=== PATIENT | female | born 1960 | race Caucasian/White ===

== ENCOUNTER → 2016-10-08 | Outpatient (CLI) | payer OTHER ==
--- NOTE | 2016-10-08 10:59 | XR ---
EXAMINATION TYPE: XR ankle complete LT DATE OF EXAM ORDERED: 10/08/2016 10:52 AM HISTORY: M25.572 left ankle pain. COMPARISON: None. FINDINGS: No fracture, dislocation or ankle joint effusion is seen. There are bubbles plantar and Ac hilles calcaneal spurs. There is some calcification of the interosseous ligament. IMPRESSION: 1. NO ACUTE OSSEOUS LESION. 2. DEGENERATIVE CHANGE.
== END | disposition home or self-care (01) ==
LOC: RADXRMAIN 10:29
PROVIDERS: ATTEND Psychiatry & Neurology Pain Medicine
DX: R93.7 Abnormal findings on diagnostic imaging of other parts of musculoskeletal system (principal); M25.572 Pain in left ankle and joints of left foot

== ENCOUNTER → 2018-11-16 | Outpatient (CLI) | payer OTHER ==
[2018-11-16 12:00] LABS: Anisocytosis Slight; HCT 40.6 % (34.0-46.0); HGB 12.3 gm/dL (11.4-16.0); Hypochromasia Marked; MCH 26.1 pg (25.0-35.0); MCHC 30.3 g/dL (31.0-37.0); MCV 85.9 fL (80.0-100.0); Mean Platelet Volume 7.4; Platelet Count 320 k/uL (150-450); RBC 4.73 m/uL (3.80-5.40); RDW 17.2 % (11.5-15.5); WBC 5.7 k/uL (3.8-10.6)
[2018-11-16 12:02] LABS: Potassium 4.4 mmol/L (3.5-5.1)
== END ==
LOC: LABPAT 10:42
PROVIDERS: ATTEND Internal Medicine Clinical Cardiac Electrophysiology
DX: Z01.812 Encounter for preprocedural laboratory examination (principal); I47.1 Supraventricular tachycardia; I42.0 Dilated cardiomyopathy
CPT/HCPCS: 36415; 80051; 82565; 82947; 84520; 85027

== ENCOUNTER → 2018-11-22 | Day surgery (SDC) | payer OTHER ==
[2018-11-16 12:57] VITALS: BMI 50.1
[~2018-11-22] MED LIST: DEXTROSE 5% IN WATER 250 ML with AMIODARONE 300 MG IV ONE; PROPOFOL 10 MG/ML 20 ML VIAL IV ONE; RIVAROXABAN 20 MG TAB PO STA; SODIUM CHLORIDE 0.9% 1,000 ML IV SCH; SODIUM CHLORIDE 0.9% 500 ML 500 ML IV ONE
[2018-11-22 12:38] VITALS: TEMP 97.8
--- NOTE | 2018-11-22 13:07 | P.PCN ---
Preoperative Diagnosis: Diagnosis Atrial tachycardia with RVR Past history of tachycardia mediated cardiomyopathy Procedure Successful electrical cardioversion with 360 J shock to sinus rhythm Immediate recurrence of atrial tachycardia with RVR Plan Start IV amiodarone 300 mg over 2 hrs. And repeat electrical cardioversion today Schedule for pulmonary vein isolation and atrial tachycardia ablation Hybrid procedure with cryoablation and mapping and ablation with radiofrequency ablation for any residual atrial tachycardia as well as reinterrogation of the atrial flutter RF line made in 2013
[2018-11-22 15:46] VITALS: RESP 18
[2018-11-22 16:41] VITALS: BP 141/72; PULSE 78
== END | disposition home or self-care (01) ==
LOC: CATHEP 12:10
PROVIDERS: ATTEND Internal Medicine Clinical Cardiac Electrophysiology
DX: I47.1 Supraventricular tachycardia (principal); I42.0 Dilated cardiomyopathy; I48.92 Unspecified atrial flutter; I11.0 Hypertensive heart disease with heart failure; I50.22 Chronic systolic (congestive) heart failure; I49.5 Sick sinus syndrome; Q23.1 Congenital insufficiency of aortic valve; I35.1 Nonrheumatic aortic (valve) insufficiency; F17.200 Nicotine dependence, unspecified, uncomplicated; G47.33 Obstructive sleep apnea (adult) (pediatric); Z99.89 Dependence on other enabling machines and devices; E11.9 Type 2 diabetes mellitus without complications; Z79.01 Long term (current) use of anticoagulants; Z79.1 Long term (current) use of non-steroidal anti-inflammatories (NSAID); Z79.899 Other long term (current) drug therapy
CPT/HCPCS: 92960; J0282; J2704

== ENCOUNTER → 2018-12-07 | Outpatient (CLI) | payer OTHER ==
[2018-12-07 11:32] LABS: Anisocytosis Slight; HCT 41.9 % (34.0-46.0); HGB 12.8 gm/dL (11.4-16.0); Hypochromasia Marked; MCH 25.9 pg (25.0-35.0); MCHC 30.5 g/dL (31.0-37.0); Mean Platelet Volume 7.5; Platelet Count 325 k/uL (150-450); RBC 4.93 m/uL (3.80-5.40); RDW 16.4 % (11.5-15.5); WBC 6.3 k/uL (3.8-10.6)
== END | disposition home or self-care (01) ==
LOC: LABPAT 10:55
PROVIDERS: ATTEND Internal Medicine Clinical Cardiac Electrophysiology
DX: Z01.812 Encounter for preprocedural laboratory examination (principal); I48.92 Unspecified atrial flutter; I47.1 Supraventricular tachycardia
CPT/HCPCS: 36415; 80051; 82565; 84520; 85027

== ENCOUNTER 2019-01-03 09:47 | Day surgery (SDC) | payer OTHER ==
[2018-12-28 17:37] VITALS: BMI 39.5
[2019-01-03] MEDS ORDERED: MIDAZOLAM 2 MG/2 ML VIAL ONE (13:53)
[2019-01-03] MEDS ORDERED: HEPARIN SODIUM,PORCINE 10,000 UNIT/ML 1 ML VIAL ONE (13:53)
[2019-01-03] MEDS ORDERED: PROPOFOL 10 MG/ML 20 ML VIAL IV ONE (13:53)
[2019-01-03] MEDS ORDERED: LIDOCAINE 1% INJ 10MG/ML (20 ML MDV) ONE (13:53)
[2019-01-03] MEDS ORDERED: PHENYLEPHRINE-0.9% NACL SYG 1 MG/10 ML SYRINGE ONE (13:53)
[2019-01-03] MEDS ORDERED: PROTAMINE SULFATE 10 MG/ML 5 ML VIAL IV ONE ×3 (13:53→17:02)
[2019-01-03] MEDS ORDERED: IV FLUID CONTINUATION 800 ML IV ONE (13:53)
[2019-01-03] MEDS ORDERED: SUCCINYLCHOLINE CHLORIDE 100 MG/5 ML SYR IV ONE (13:53)
[2019-01-03] MEDS ORDERED: FUROSEMIDE 10 MG/ML 2 ML VIAL ONE (13:53)
[2019-01-03] MEDS ORDERED: fentaNYL (PF) 50 MCG/ML 2 ML AMP ONE (13:53)
[2019-01-03] MEDS ORDERED: ISOPROTERENOL 250 MCG/1.25 ML SYR IV ONE (13:53)
[2019-01-03] MEDS ORDERED: HEPARIN SOD,PORK IN 0.45% NACL 25,000 UNIT in 0.45% NACL 1 250ML.BAG IV ONE (14:37)
[2019-01-03] MEDS ORDERED: LIDOCAINE 1% INJ 10MG/ML (20 ML MDV) SQ ONE (14:40)
[2019-01-03] MEDS ORDERED: LACTATED RINGERS 1,000 ML IV ONE (16:40)
[2019-01-03] MEDS ORDERED: HYDROcodone/APAP 5-325MG 1 EACH TAB PO PRN (17:03)
[2019-01-03] MEDS ORDERED: ACETAMINOPHEN TAB 325 MG TAB PO PRN (17:03)
[2019-01-03] MEDS ORDERED: ACETAMINOPHEN IV (For NPO) 1,000 MG in EMPTY BAG 1 BAG IVPB ONE (17:03)
[2019-01-03] MEDS ORDERED: IOPAMIDOL-370 100ML BTL INJ ONE (17:07)
--- NOTE | 2019-01-03 17:15 | P.PCN ---
Preoperative Diagnosis: Diagnosis Atrial fibrillation, symptomatic, refractory to therapy/rapid atrial tachycardia, symptomatic Result Successful pulmonary vein isolation of all veins using cryo-ablation Complete entrance block in all 4 veins confirmed No evidence for phrenic nerve injury Easily inducible rapid atrial tachycardia that terminated with cryoablation of the left-sided pulmonary veins specifically left superior pulmonary vein Esophageal deflection YES Procedure details Patient was brought to the EP lab in a fasting state. Written informed consent was obtained prior to the procedure. Procedure performed under general anesthesia After initial muscle relaxant use, muscle relaxants were not given thereafter in order to assess phrenic nerve during procedure. Patient prepped and draped as per protocol Full cryo-set up with standard preparation of the cryoablation tools done. Femoral Venous access obtained on the right and left groins Venous and arterial Sheaths placed. Diagnostic catheters for the high right atrium, phrenic nerve stimulation and pacing, His bundle, RV and coronary sinus placed Intracardiac echo catheter placed. Long sheath placed in the right atrium Left and right transseptal catheterization performed under intracardiac echo guidance. Intravenous heparin with aCT above 300 Later, catheter positioning and balloon positioning in the left atrium, under intracardiac echo guidance Diagnostic EP study with Drug infusion Coronary sinus pacing and recording Baseline measurements Sinus cycle length 884 ms LA interval 180 ms, QRS 86 ms QT 370 beats 3 ms AH 82 HV 30 Atrial pacing performed from the high right atrium and the coronary sinus Sinus node recovery times at 504 100 ms were 742 and 708 ms respectively. AV node Wenckebach block from the high right atrium was 290 ms Atrial ERP from the high right atrium 400/less than 250 ms AV node Wenckebach block from the Jhony sinus less than 290 ms High-dose Isuprel infused no recurrence of atrial tachycardia Transseptal catheterization performed RA pressure 17/10/14 LA pressure 35/13/19 Transseptal catheterization performed with standard sheath. The cryoablation sheath was then placed with an over the wire exchange without any acute complications. All 4 pulmonary veins were isolated in the following sequence: Left superior followed by left inferior followed by right superior followed by right inferior The cryo-ablation balloon was placed at the os of each vein 1.5 mL of IV dye was injected to confirm an occluded vein Goal during cryoablation was to achieve complete occlusion of the pulmonary vein, achieve -30 degrees C at 30 seconds and achieve -40 degrees C at 60 seconds and a time to effect of less than 60-90 seconds, . If not the balloon was repositioned to obtain this result After completion of Cryoblation with durations from 180-240 seconds, entrance block was confirmed with the Attain circular catheter in a roving fashion around the antrum of the pulmonary veins Phrenic nerve pacing was performed from the SVC, right innominate vein area and diaphragm voltage was monitored. Diaphragmatic contractions were also monitored manually for strength of contraction. Parameter goals for each cryo freeze Complete occlusion of the appropriate vein -30 degrees C by 30 seconds -40 degrees C by 60 seconds Minimum between minus 40-55 degrees C Thaw time greater than 10 seconds Balloon visualized by intracardiac echo The esophagus was intubated. Esophageal Temperature monitoring with a CIRCA catheter formed. Esophageal deflection for hypothermia of the esophagus below 30 degrees C Left superior pulmonary vein Complete isolation, entrance block Termination of rapid atrial tachycardia Left inferior pulmonary vein Complete isolation, entrance block Right superior pulmonary vein, during phrenic nerve pacing Complete isolation, entrance block Right inferior pulmonary vein, during phrenic nerve pacing Complete isolation, entrance block At the end of the procedure the Achieve catheter was once again used to check for entrance block Phrenic nerve stimulation was performed to confirm diaphragmatic stimulation the end of the procedure Cine fluoroscopy was performed at the very end of the procedure to confirm movement of both diaphragms with inspiration and expiration At the end of the procedure the patient was extubated Heparin was reversed Venous sheaths were removed and hemostasis assured Procedures performed (PVI - CRYO Ablation) Diagnostic EP study with attempted arrhythmia induction CS pacing and recording Left and right transseptal catheterization Catheter the mapping of the tachycardia (NOT 3D mapping) Intracardiac echocardiography Pulmonary vein isolation with transseptal and comprehensive EPS, [id number] and termination of the rapid atrial tachycardia during ablation of left superior pulmonary vein Drug Infusion +[id number]
--- NOTE | 2019-01-03 17:17 | P.PRLE ---
RE: Radha Mark Dear Dr. Quique Garcia underwent successful cryoablation of all 4 pulmonary veins. However she had a very easily inducible atrial tachycardia with minimal pacing stimulation within the distal coronary sinus. This tachycardia terminated while the ablated the left superior pulmonary vein At this time I would reduce the dose of amiodarone to 100 mg by mouth daily raf torres continuing all other medications including Rivaroxaban Thank you for entrusting me with the care of the patient Warm regards Sincerely Salvador Nielsen
[2019-01-03] MEDS ORDERED: RIVAROXABAN 20 MG TAB PO SCH (19:15)
[2019-01-03 20:26] LABS: Glucose,Whole Blood 114 mg/dL (75-99)
[2019-01-03] MEDS: SODIUM CHLORIDE 0.9% 1,000 ML IV SCH ×2 (20:48→21:41)
[2019-01-03] MEDS: busPIRone HCl 5 MG TAB PO SCH (20:48)
[2019-01-03] MEDS: DORZOLAMIDE HCL 2% DROPS 10 ML BTL BOTH EYES SCH (20:48)
[2019-01-03] MEDS ORDERED: LATANOPROST 0.005% OPHTH DROPS 2.5 ML BTL BOTH EYES SCH (21:00)
[2019-01-04 06:57] LABS: Glucose,Whole Blood 115 mg/dL (75-99)
[2019-01-04] MEDS ORDERED: CARVEDILOL 3.125 MG TAB PO SCH (07:30)
--- NOTE | 2019-01-04 07:37 | P.DS ---
Providers Attending physician: Salvador Nielsen Primary care physician: Quique Rain [facility] Course: Patient is doing well. Mild sore throat no chest discomfort no dizziness lightheadedness. She's been ablating the hallways Heart sounds are normal no murmurs or gallops or rub Breath sounds are clear Abdomen soft nontender Extremities are warm no edema No swelling in the groins no hematoma Impression Rapid atrial tachycardia/atrial fibrillation originating in the left-sided veins, likely left superior pulmonary vein Successful cryoablation of all 4 pulmonary veins Termination of rapid atrial tachycardia Morbid obesity Hypertension Plan Reduce amiodarone to 100 mg by mouth daily Continue all other antihypertensive medications, Rivaroxaban Follow-up in the office within 2 weeks Plan - Discharge Summary Discharge Rx Participant: Yes New Discharge Prescriptions: New Amiodarone [Cordarone] 100 mg PO DAILY #90 tab Discontinued amLODIPine [Norvasc] 10 mg PO DAILY No Action busPIRone HCl [Buspar] 5 mg PO BID Spironolactone [Aldactone] 25 mg PO DAILY Rivaroxaban [Xarelto] 20 mg PO DAILY Lisinopril [Zestril] 10 mg PO DAILY Carvedilol [Coreg] 3.125 mg PO BID Inhaler (Unknown Name) 1 - 2 puff INHALATION Q6H PRN PRN Reason: Shortness Of Breath Amiodarone [Cordarone] 200 mg PO DAILY #15 tab Latanoprost/Pf [Latanoprost 0.005% Eye Drop] 1 drop BOTH EYES HS clonazePAM [KlonoPIN] 2 mg PO DAILY HYDROcodone/APAP 7.5-325MG [[place] 7.5-325] 1 tab PO BID Dorzolamide HCl [Trusopt 2%] 1 drop BOTH EYES BID Discharge Medication List Carvedilol [Coreg] 3.125 mg PO BID 06/22/14 [History] Lisinopril [Zestril] 10 mg PO DAILY 06/22/14 [History] Rivaroxaban [Xarelto] 20 mg PO DAILY 06/22/14 [History] Spironolactone [Aldactone] 25 mg PO DAILY 06/22/14 [History] busPIRone HCl [Buspar] 5 mg PO BID 06/22/14 [History] Inhaler (Unknown Name) 1 - 2 puff INHALATION Q6H PRN 11/16/18 [History] Amiodarone [Cordarone] 200 mg PO DAILY #15 tab 11/22/18 [Rx] Dorzolamide HCl [Trusopt 2%] 1 drop BOTH EYES BID 12/28/18 [History] HYDROcodone/APAP 7.5-325MG [[place] 7.5-325] 1 tab PO BID 12/28/18 [History] Latanoprost/Pf [Latanoprost 0.005% Eye Drop] 1 drop BOTH EYES HS 12/28/18 [History] clonazePAM [KlonoPIN] 2 mg PO DAILY 12/28/18 [History] Amiodarone [Cordarone] 100 mg PO DAILY #90 tab 01/03/19 [Rx] Follow up Appointment(s)/Referral(s): Salvador Nielsen MD [STAFF PHYSICIAN] - 2 Weeks (Follow up in the office within [address] Coronado/Radha) Activity/Diet/Wound Care/Special Instructions: Post EP study - Ablation instructions 1. Keep access sites dry for 2 days. 2. No heavy lifting or straining for 2 days. 3. Avoid bending the hips repeatedly for 2 days. 4. You may go up and down stairs slowly Call if the following is noted 1. Bleeding, increasing swelling or pain at the access sites. 2. Increasing chest discomfort, especially upon taking a deep breath. 3. Increasing shortness of breath, at rest or with exertion. 4. Undue cough / phlegm 5. Difficulty or pain while swallowing. 6. Pain or change in color in the extremities. 7. Fever, chills, rigors. 8. Increasing headache or neurologic symptoms. 9. Dizziness, fainting, palpitations Medication changes Amiodarone dose being reduced to 100 mg by mouth daily Continue all other medications including Rivaroxaban
[2019-01-04] MEDS: busPIRone HCl 5 MG TAB PO SCH (08:11)
[2019-01-04] MEDS ORDERED: RIVAROXABAN 20 MG TAB PO SCH ×2 (09:00→17:30)
[2019-01-04] MEDS ORDERED: clonazePAM 1 MG TAB PO SCH (09:00)
[2019-01-04] MEDS ORDERED: AMIODARONE 200 MG TAB PO SCH (09:00)
[2019-01-04] MEDS ORDERED: LISINOPRIL 10 MG TAB PO SCH (09:00)
[2019-01-04] MEDS ORDERED: SPIRONOLACTONE 25 MG TAB PO SCH (09:00)
[2019-01-04] MEDS ORDERED: amLODIPine 10 MG TAB PO SCH (09:00)
[2019-01-04 11:53] LABS: Glucose,Whole Blood 105 mg/dL (75-99)
[2019-01-04] MEDS: DORZOLAMIDE HCL 2% DROPS 10 ML BTL BOTH EYES SCH (12:11)
[2019-01-04 16:04] VITALS: BP 112/67; PULSE 86; RESP 16; TEMP 98
[2019-01-04 16:57] LABS: Glucose,Whole Blood 96 mg/dL (75-99)
== END 2019-01-04 18:40 | disposition home or self-care (01) ==
LOC: CATHEP 09:47 → 1SOBS 17:31 → CATHEP 01-04 18:40
PROVIDERS: ATTEND Internal Medicine Clinical Cardiac Electrophysiology
DX: I48.91 Unspecified atrial fibrillation (principal); I47.1 Supraventricular tachycardia; I42.0 Dilated cardiomyopathy; I11.0 Hypertensive heart disease with heart failure; Q23.1 Congenital insufficiency of aortic valve; I50.9 Heart failure, unspecified; E66.01 Morbid (severe) obesity due to excess calories; Z68.43 Body mass index [BMI] 50.0-59.9, adult; Z95.828 Presence of other vascular implants and grafts; E11.9 Type 2 diabetes mellitus without complications; I49.5 Sick sinus syndrome; E78.5 Hyperlipidemia, unspecified; F17.210 Nicotine dependence, cigarettes, uncomplicated; G47.33 Obstructive sleep apnea (adult) (pediatric); Z99.89 Dependence on other enabling machines and devices; Z79.899 Other long term (current) drug therapy; Z79.1 Long term (current) use of non-steroidal anti-inflammatories (NSAID); Z79.01 Long term (current) use of anticoagulants
CPT/HCPCS: 85347 ×2; 93623; 93662; 93609; 93656; C1759 ×2; C1769 ×7; C1894 ×2; C1730 ×2; C1893; C1733; C1766; J2250; J2720; J1644 ×2; J1940; J2001; J3010; J2370; J0330; J2704; Q9967

== ENCOUNTER → 2019-09-08 | Outpatient (CLI) | payer OTHER ==
[2019-09-08 22:37] LABS: African American GFR (CKD) 48.2 (60.0-200.0); Albumin 4.6 g/dL (3.80-4.90); Albumin/Globulin Ratio 1.84 (1.60-3.17); Anion Gap 10.6 mmol/L (4.00-12.00); BUN/Creat Ratio 18.57 Ratio (12.00-20.00); Calcium 9.3 mg/dL (8.7-10.3); Carbon Dioxide 19.4 mmol/L (21.6-31.8); Globulin 2.5 g/dL (1.6-3.3); Magnesium 2.3 mg/dL (1.5-2.4); Non-African American GFR(CKD) 41.6 (60.0-200.0); Potassium 4.9 mmol/L (3.5-5.5); Total Bilirubin 0.2 mg/dL (0.3-1.2); Total Protein 7.1 g/dL (6.2-8.2)
== END | disposition home or self-care (01) ==
LOC: LABWHC1 11:50
PROVIDERS: ATTEND Nurse Practitioner Adult Health
DX: I10 Essential (primary) hypertension (principal)
CPT/HCPCS: 36415; 80053; 83735

== ENCOUNTER 2021-05-28 09:30 | Inpatient (IN) | payer OTHER ==
[2021-05-28] MEDS ORDERED: ADENOSINE 3 MG/ML 2 ML VIAL IVP STA ×2 (10:03→10:12)
[2021-05-28] MEDS ORDERED: DILTIAZEM DRIP BOLUS FROM BAG 1 MG SOLN IV ONE ×2 (10:15→10:45)
[2021-05-28 10:22] LABS: INR 1.9 (<1.2); Partial Thromboplastin Time 26.5 sec (22.0-30.0); Prothrombin Time 18.5 sec (9.0-12.0)
[2021-05-28] MEDS: DILTIAZEM 125 MG in SODIUM CHLORIDE 0.9% 100 ML IV SCH (10:24)
[2021-05-28 10:29] LABS: Albumin 3.3 g/dL (3.5-5.0); Calcium 8.9 mg/dL (8.4-10.2); Magnesium 2.2 mg/dL (1.6-2.3); Potassium 5.4 mmol/L (3.5-5.1); Total Bilirubin 1.5 mg/dL (0.2-1.3); Total Protein 7.1 g/dL (6.3-8.2)
--- NOTE | 2021-05-28 10:48 | ED ---
General Adult HPI - General Chief complaint: Dizziness Stated complaint: Dizziness Time Seen by Provider: 05/28/21 09:38 Source: patient, EMS, RN notes reviewed, old records reviewed Mode of arrival: EMS Limitations: no limitations - History of Present Illness Initial comments: 60-year-old female history of atrial fibrillation presenting for increased cough and dyspnea. She states that she's had a productive cough for the past 3 days. She's been treated for bronchitis and cough over the past 30 days from her primary care physician. She states her symptoms have not improved. She also is having palpitations and was found to be in SVT. She denies fever. She denies central chest pain. She states she feels somewhat lightheaded. No significant abdominal pain nausea or vomiting. - Related Data Home Medications Medication Instructions Recorded Confirmed Rivaroxaban [Xarelto] 20 mg PO DAILY 06/22/14 05/28/21 Spironolactone [Aldactone] 25 mg PO DAILY 06/22/14 05/28/21 Latanoprost/Pf [Latanoprost 0.005% 1 drop BOTH EYES HS 12/28/18 05/28/21 Eye Drop] clonazePAM [KlonoPIN] 1 mg PO BID PRN 12/28/18 05/28/21 Albuterol Sulfate [Proair Hfa] 2 puff INHALATION RT-Q6H PRN 05/28/21 05/28/21 Atorvastatin [Lipitor] 20 mg PO HS 05/28/21 05/28/21 Dorzolamide/Timolol/Pf 1 drop BOTH EYES BID 05/28/21 05/28/21 [Dorzolamide 2%-Timolol 0.5%] Furosemide [Lasix] 20 mg PO DAILY 05/28/21 05/28/21 Loratadine [Claritin] 10 mg PO DAILY 05/28/21 05/28/21 carvediloL [Coreg] 6.25 mg PO BID 05/28/21 05/28/21 lisinopriL [Zestril] 20 mg PO DAILY 05/28/21 05/28/21 traZODone HCL [Desyrel] 100 mg PO HS PRN 05/28/21 05/28/21 Previous Rx's Medication Instructions Recorded Amiodarone [Cordarone] 100 mg PO DAILY #90 tab 05/21/19 Allergies Allergy/AdvReac Type Severity Reaction Status Date / Time No Known Allergies Allergy Verified 05/28/21 13:58 Review of Systems ROS Statement: Those systems with pertinent positive or pertinent negative responses have been documented in the HPI. ROS Other: All systems not noted in ROS Statement are negative. Past Medical History Past Medical History: Atrial Fibrillation, Cancer, Diabetes Mellitus Additional Past Medical History / Comment(s): see Dr Nielsen H & P, 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 History of Any Multi-Drug Resistant Organisms: None Reported Past Surgical History: Appendectomy Additional Past Surgical History / Comment(s): mediport years ago, & then removed Past Anesthesia/Blood Transfusion Reactions: No Reported Reaction Past Psychological History: Anxiety Smoking Status: Former smoker Past Alcohol Use History: None Reported, Rare Past Drug Use History: Marijuana General Exam Limitations: no limitations Course Vital Signs 05/28/21 05/28/21 05/28/21 09:32 10:43 11:18 Temperature 98.6 F Pulse Rate 165 H 163 H 161 H Respiratory 22 22 24 Rate Blood Pressure 99/49 102/60 99/66 O2 Sat by Pulse 97 96 Oximetry 05/28/21 05/28/21 13:43 14:08 Temperature 97.8 F Pulse Rate 158 H 82 Respiratory 20 20 Rate Blood Pressure 118/57 96/54 O2 Sat by Pulse 100 100 Oximetry EKG Findings - EKG Comments: EKG Findings:: EKG: SVT, low voltage no ST segment elevation, rate of 167, QRS duration 96, QTC 480. Repeat EKG sinus rhythm with PVC, rightward axis, rate of 81, CO interval 188, QRS duration 94, QTC 4:15 Medical Decision Making - Medical Decision Making 60-year-old female presenting with cough, mild dyspnea, lightheadedness. Patient found to be in SVT rate of 165. She does not convert despite 6 mg followed by 12 mg of adenosine. She is started on Cardizem, workup initiated. She's significant lab abnormalities including new anemia of 5.8. She has a lactic acid 3.4. She has a elevated troponin which I suspect is from demand at 0.35. She is a BUN which is elevated at 12,000. Chest x-ray shows CHF. Patient given Protonix, K Sentra, and 2 units of packed RBCs regarding this li brenda GI bleed with melanotic stool. Regarding her arrhythmia she has been given adenosine followed by Cardizem. She may require metoprolol if she does not convert. She will be admitted to the ICU with GI, cardiology and pulmonology on consult. Dr. Solitario, Dr. Mcdaniels, Dr. Gann, Dr. Gann have all been contacted. - Lab Data Result diagrams: 05/28/21 13:36 05/28/21 10:05 Lab Results 05/28/21 05/28/21 05/28/21 Range/Units 10:05 10:05 10:05 WBC 6.8 (3.8-10.6) k/uL RBC 3.32 L (3.80-5.40) m/uL Hgb 5.8 L* (11.4-16.0) gm/dL Hct 22.7 L (34.0-46.0) % MCV 68.5 L (80.0-100.0) fL MCH 17.3 L (25.0-35.0) pg MCHC 25.3 L (31.0-37.0) g/dL RDW 23.5 H (11.5-15.5) % Plt Count 233 (150-450) k/uL MPV 8.6 Neutrophils % (Manual) 79 % Lymphocytes % (Manual) 9 % Monocytes % (Manual) 12 % Neutrophils # (Manual) 5.37 (1.3-7.7) k/uL Lymphocytes # (Manual) 0.61 L (1.0-4.8) k/uL Monocytes # (Manual) 0.82 (0-1.0) k/uL Nucleated RBCs 1 H (0-0) /100 WBC Manual Slide Review Performed Hypochromasia Marked Poikilocytosis Slight Anisocytosis Moderate Microcytosis Marked Target Cells Present Fragmented RBCs Present PT 18.5 H (9.0-12.0) sec INR 1.9 H (<1.2) APTT 26.5 (22.0-30.0) sec Sodium 138 (137-145) mmol/L Potassium 5.4 H (3.5-5.1) mmol/L Chloride 109 H (98-107) mmol/L Carbon Dioxide 19 L (22-30) mmol/L Anion Gap 10 mmol/L BUN 21 H (7-17) mg/dL Creatinine 1.80 H (0.52-1.04) mg/dL Est GFR (CKD-EPI)AfAm 35 (>60 ml/min/1.73 sqM) Est GFR (CKD-EPI)NonAf 30 (>60 ml/min/1.73 sqM) Glucose 99 (74-99) mg/dL Lactic Ac Sepsis Rflx Plasma Lactic Acid Jim (0.7-2.0) mmol/L Calcium 8.9 (8.4-10.2) mg/dL Magnesium 2.2 (1.6-2.3) mg/dL Total Bilirubin 1.5 H (0.2-1.3) mg/dL AST 47 H (14-36) U/L ALT 24 (4-34) U/L Alkaline Phosphatase 105 (38-126) U/L Troponin I (0.000-0.034) ng/mL NT-Pro-B Natriuret Pep pg/mL Total Protein 7.1 (6.3-8.2) g/dL Albumin 3.3 L (3.5-5.0) g/dL Coronavirus (PCR) (Not Detectd) 05/28/21 05/28/21 05/28/21 Range/Units 10:05 10:05 10:28 WBC (3.8-10.6) k/uL RBC (3.80-5.40) m/uL Hgb (11.4-16.0) gm/dL Hct (34.0-46.0) % MCV (80.0-100.0) fL MCH (25.0-35.0) pg MCHC (31.0-37.0) g/dL RDW (11.5-15.5) % Plt Count (150-450) k/uL MPV Neutrophils % (Manual) % Lymphocytes % (Manual) % Monocytes % (Manual) % Neutrophils # (Manual) (1.3-7.7) k/uL Lymphocytes # (Manual) (1.0-4.8) k/uL Monocytes # (Manual) (0-1.0) k/uL Nucleated RBCs (0-0) /100 WBC Manual Slide Review Hypochromasia Poikilocytosis Anisocytosis Microcytosis Target Cells Fragmented RBCs PT (9.0-12.0) sec INR (<1.2) APTT (22.0-30.0) sec Sodium (137-145) mmol/L Potassium (3.5-5.1) mmol/L Chloride (98-107) mmol/L Carbon Dioxide (22-30) mmol/L Anion Gap mmol/L BUN (7-17) mg/dL Creatinine (0.52-1.04) mg/dL Est GFR (CKD-EPI)AfAm (>60 ml/min/1.73 sqM) Est GFR (CKD-EPI)NonAf (>60 ml/min/1.73 sqM) Glucose (74-99) mg/dL Lactic Ac Sepsis Rflx Plasma Lactic Acid Jim 3.4 H* (0.7-2.0) mmol/L Calcium (8.4-10.2) mg/dL Magnesium (1.6-2.3) mg/dL Total Bilirubin (0.2-1.3) mg/dL AST (14-36) U/L ALT (4-34) U/L Alkaline Phosphatase (38-126) U/L Troponin I 0.354 H* (0.000-0.034) ng/mL NT-Pro-B Natriuret Pep 33558 pg/mL Total Protein (6.3-8.2) g/dL Albumin (3.5-5.0) g/dL Coronavirus (PCR) (Not Detectd) 05/28/21 05/28/21 Range/Units 10:51 11:16 WBC (3.8-10.6) k/uL RBC (3.80-5.40) m/uL Hgb (11.4-16.0) gm/dL Hct (34.0-46.0) % MCV (80.0-100.0) fL MCH (25.0-35.0) pg MCHC (31.0-37.0) g/dL RDW (11.5-15.5) % Plt Count (150-450) k/uL MPV Neutrophils % (Manual) % Lymphocytes % (Manual) % Monocytes % (Manual) % Neutrophils # (Manual) (1.3-7.7) k/uL Lymphocytes # (Manual) (1.0-4.8) k/uL Monocytes # (Manual) (0-1.0) k/uL Nucleated RBCs (0-0) /100 WBC Manual Slide Review Hypochromasia Poikilocytosis Anisocytosis Microcytosis Target Cells Fragmented RBCs PT (9.0-12.0) sec INR (<1.2) APTT (22.0-30.0) sec Sodium (137-145) mmol/L Potassium (3.5-5.1) mmol/L Chloride (98-107) mmol/L Carbon Dioxide (22-30) mmol/L Anion Gap mmol/L BUN (7-17) mg/dL Creatinine (0.52-1.04) mg/dL Est GFR (CKD-EPI)AfAm (>60 ml/min/1.73 sqM) Est GFR (CKD-EPI)NonAf (>60 ml/min/1.73 sqM) Glucose (74-99) mg/dL Lactic Ac Sepsis Rflx Y Plasma Lactic Acid Jim (0.7-2.0) mmol/L Calcium (8.4-10.2) mg/dL Magnesium (1.6-2.3) mg/dL Total Bilirubin (0.2-1.3) mg/dL AST (14-36) U/L ALT (4-34) U/L Alkaline Phosphatase (38-126) U/L Troponin I (0.000-0.034) ng/mL NT-Pro-B Natriuret Pep pg/mL Total Protein (6.3-8.2) g/dL Albumin (3.5-5.0) g/dL Coronavirus (PCR) Not Detected (Not Detectd) Critical Care Time Critical Care Time: Yes Total Critical Care Time: 35 Disposition Clinical Impression: SVT (supraventricular tachycardia), Anemia, Melena, KEYUR (acute kidney injury), CHF (congestive heart failure) Disposition: ADMITTED IP TO THIS [facility] Condition: Serious Is patient prescribed a controlled substance at d/c from ED?: No Decision to Admit Reason: Admit from EC Decision Date: 05/28/21 Decision Time: 13:31
--- NOTE | 2021-05-28 11:20 | XR ---
EXAMINATION TYPE: XR chest 1V portable DATE OF EXAM: 05/28/2021 COMPARISON: NONE HISTORY: Shortness of breath TECHNIQUE: Single frontal view of the chest is obtained. FINDINGS: The heart is enlarged and there is a diffuse interstitial pattern with basilar consolidati on. No pneumothorax. IMPRESSION: Cardiomegaly with diffuse interstitial pattern correlate for CHF versus interstitial pne umonia.
[2021-05-28 11:25] LABS: Anisocytosis Moderate; HCT 22.7 % (34.0-46.0); Hypochromasia Marked; MCH 17.3 pg (25.0-35.0); MCHC 25.3 g/dL (31.0-37.0); MCV 68.5 fL (80.0-100.0); Mean Platelet Volume 8.6; Microcytosis Marked; Platelet Count 233 k/uL (150-450); Poikilocytosis Slight; RBC 3.32 m/uL (3.80-5.40); RDW 23.5 % (11.5-15.5)
[2021-05-28 11:38] LABS: HGB 5.8 gm/dL (11.4-16.0)
[2021-05-28] MEDS ORDERED: PANTOPRAZOLE 40 MG/10 ML VIAL IVP STA (11:39)
[2021-05-28 12:36] LABS: Neutrophils % (M) 79 %; Nucleated Red Blood Cells 1 /100 WBC (0-0); Total Cells Counted 200
[2021-05-28 12:37] LABS: Lymphocytes # (M) 0.61 k/uL (1.0-4.8); Monocytes # (M) 0.82 k/uL (0-1.0); Neutrophils # (M) 5.37 k/uL (1.3-7.7); WBC 6.8 k/uL (3.8-10.6)
[2021-05-28] MEDS ORDERED: Kcentra PER PHARMACY 1 EACH MISC MISCELLANE PRN (12:37)
[2021-05-28 12:38] LABS: RBC Fragments Present; Target Cells Present
[2021-05-28] MEDS ORDERED: HUMAN PROTHROMBIN COMPLX IV ONE (12:45)
[2021-05-28] MEDS ORDERED: FUROSEMIDE 10 MG/ML 4 ML VIAL IV STA (13:24)
[2021-05-28] MEDS ORDERED: ACETAMINOPHEN TAB 325 MG TAB PO PRN (13:25)
[2021-05-28] MEDS ORDERED: NALOXONE 0.4 MG/ML 1 ML VIAL IV PRN (13:25)
[2021-05-28] MEDS ORDERED: MORPHINE SULFATE 2 MG/ML SYRINGE IV PRN (13:25)
[2021-05-28 13:48] LABS: Anisocytosis Moderate; HCT 22.4 % (34.0-46.0); Hypochromasia Marked; MCH 16.8 pg (25.0-35.0); MCHC 24.3 g/dL (31.0-37.0); MCV 69.3 fL (80.0-100.0); Microcytosis Marked; Platelet Count 235 k/uL (150-450); Poikilocytosis Slight; RBC 3.24 m/uL (3.80-5.40); RDW 23.4 % (11.5-15.5)
[2021-05-28 14:00] LABS: HGB 5.4 gm/dL (11.4-16.0)
--- NOTE | 2021-05-28 14:39 | P.CRDCN ---
History of Present Illness Consult date: 05/28/21 History of present illness: HISTORY OF PRESENT ILLNESS: This is a 60-year-old female with a past medical history significant for chronic atrial fibrillation, hypertension, hyperlipidemia, and COPD. Patient does not follow with a icu nurse. We have been asked to see the patient in consultation for SVT, arrhythmia. Patient examined at the bedside in the emergency room. Patient presented to the hospital secondary to shortness of breath and fatigue. Patient was found to be a-fib with RVR. Patient was placed on a Cardizem drip which is currently infusing at 5 mg an hour. Patient was also found to be anemic with a hemoglobin of 5.8. She takes Xarelto at home. She reports melanotic stools at home. She currently denies chest pain or pr essure. EKG reveals A. fib with RVR Chest xray cardiomegaly with diffuse interstitial pattern. Correlate for CHF versus interstitial pneumonia. Laboratory data: WBC 6.8. Hemoglobin 5.8. Platelet count 233. Sodium 138. Potassium 5.4. BUN 21. Creatinine 1.80. Lactic acid 3.4. Repeat 1.7. Tr oponin 0.354. ProBNP 12,000. Current home cardiac medications include Aldactone 25 mg daily, Lasix 20 mg daily, lisinopril 20 mg daily, Xarelto 20 mg daily, carvedilol 6.25 g twice a day, Lipitor 20 mg daily, amiodarone 100 mg daily REVIEW OF SYSTEMS: At the time of my exam: CONSTITUTIONAL: Denies fever or chills. HEENT: Denies blurred vision, vision changes, or eye pain. Denies hemoptysis CARDIOVASCULAR: Denies chest pain. Denies orthopnea. Denies PND. Denies palpitations RESPIRATORY: + shortness of breath. GASTROINTESTINAL: Denies abdominal pain. Denies nausea or vomiting. HEMATOLOGIC: Denies bleeding disorders. GENITOURINARY: Denies any blood in urine. SKIN: Denies pruitis. Denies rash. PHYSICAL EXAM: VITAL SIGNS: Reviewed. GENERAL: Well-developed in no acute distress. HEENT: Head is normocephalic. Pupils are equal, round. Sclerae anicteric. Mucous membranes of the mouth are moist. Neck supple. No JVD or thyromegaly LUNGS: Respirations even and unlabored. Lungs diminished to auscultation bilaterally. HEART: Tachycardic. Irregular rate and rhythm. S1 and S2 heard. ABDOMEN: Soft. Nondistended. Nontender. EXTREMITIES: Normal range of motion. No clubbing or cyanosis. Peripheral pulses intact. No lower extremity edema NEUROLOGIC: Awake and alert. Oriented x 3. ASSESSMENT: Acute blood loss anemia Acute GI bleed Abnormal troponin, secondary to above, no evidence of acute coronary syndrome Chronic persistent atrial fibrillation, on anticoagulants with Xarelto Hypertension COPD Hyperlipidemia PLAN: Obtain 2D echo to assess cardiac structure and function Continue IV Cardizem Hold diuretics No need to resume home amio as patient has permanent atrial fibrillation Hold anticoagulation Await GI evaluation Further recommendations pending patient course Nurse practitioner note has been reviewed by physician. Signing provider agrees with the documented findings, assessment, and plan of care. Past Medical History Past Medical History: Atrial Fibrillation, Cancer, Diabetes Mellitus Additional Past Medical History / Comment(s): see Dr Nielsen H & P, 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 History of Any Multi-Drug Resistant Organisms: None Reported Past Surgical History: Appendectomy Additional Past Surgical History / Comment(s): mediport years ago, & then removed Past Anesthesia/Blood Transfusion Reactions: No Reported Reaction Past Psychological History: Anxiety Smoking Status: Former smoker Past Alcohol Use History: None Reported, Rare Past Drug Use History: Marijuana Medications and Allergies Home Medications Medication Instructions Recorded Confirmed Type Rivaroxaban [Xarelto] 20 mg PO DAILY 06/22/14 05/28/21 History Spironolactone [Aldactone] 25 mg PO DAILY 06/22/14 05/28/21 History Latanoprost/Pf [Latanoprost 0.005% 1 drop BOTH EYES HS 12/28/18 05/28/21 History Eye Drop] clonazePAM [KlonoPIN] 1 mg PO BID PRN 12/28/18 05/28/21 History Amiodarone [Cordarone] 100 mg PO DAILY #90 tab 01/03/19 05/28/21 Rx Albuterol Sulfate [Proair Hfa] 2 puff INHALATION RT-Q6H PRN 05/28/21 05/28/21 History Atorvastatin [Lipitor] 20 mg PO HS 05/28/21 05/28/21 History Dorzolamide/Timolol/Pf 1 drop BOTH EYES BID 05/28/21 05/28/21 History [Dorzolamide 2%-Timolol 0.5%] Furosemide [Lasix] 20 mg PO DAILY 05/28/21 05/28/21 History Loratadine [Claritin] 10 mg PO DAILY 05/28/21 05/28/21 History carvediloL [Coreg] 6.25 mg PO BID 05/28/21 05/28/21 History lisinopriL [Zestril] 20 mg PO DAILY 05/28/21 05/28/21 History traZODone HCL [Desyrel] 100 mg PO HS PRN 05/28/21 05/28/21 History Allergies Allergy/AdvReac Type Severity Reaction Status Date / Time No Known Allergies Allergy Verified 05/28/21 13:58 Physical Exam Vitals: Vital Signs Temp Pulse Resp BP Pulse Ox 05/28/21 14:08 97.8 F 82 20 96/54 100 05/28/21 13:43 158 H 20 118/57 100 05/28/21 11:18 161 H 24 99/66 05/28/21 10:43 163 H 22 102/60 96 05/28/21 09:32 98.6 F 165 H 22 99/49 97 Intake and Output 05/27/21 05/28/21 05/28/21 22:59 06:59 14:59 Intake Total 25.583 Balance 25.583 Intake: Intake, IV Titration 25.583 Amount Diltiazem 125 mg In 25.583 Sodium Chloride 0.9% 100 ml @ 5 MG/HR 5 mls/hr IV .Q24H [facility] Rx#:[id number] Other: Weight 163.293 kg Results 05/28/21 13:36 05/28/21 10:05 Cardiac Enzymes 05/28/21 05/28/21 Range/Units 10:05 10:05 AST 47 H (14-36) U/L Troponin I 0.354 H* (0.000-0.034) ng/mL Coagulation 05/28/21 Range/Units 10:05 PT 18.5 H (9.0-12.0) sec APTT 26.5 (22.0-30.0) sec CBC 05/28/21 05/28/21 Range/Units 10:05 13:36 WBC 6.8 7.0 (3.8-10.6) k/uL RBC 3.32 L 3.24 L (3.80-5.40) m/uL Hgb 5.8 L* (11.4-16.0) gm/dL Hct 22.7 L 22.4 L (34.0-46.0) % Plt Count 233 235 (150-450) k/uL Comprehensive Metabolic Panel 05/28/21 Range/Units 10:05 Sodium 138 (137-145) mmol/L Potassium 5.4 H (3.5-5.1) mmol/L Chloride 109 H (98-107) mmol/L Carbon Dioxide 19 L (22-30) mmol/L BUN 21 H (7-17) mg/dL Creatinine 1.80 H (0.52-1.04) mg/dL Glucose 99 (74-99) mg/dL Calcium 8.9 (8.4-10.2) mg/dL AST 47 H (14-36) U/L ALT 24 (4-34) U/L Alkaline Phosphatase 105 (38-126) U/L Total Protein 7.1 (6.3-8.2) g/dL Albumin 3.3 L (3.5-5.0) g/dL Current Medications Generic Name Dose Route Start Last Admin Trade Name Freq PRN Reason Stop Dose Admin Acetaminophen 650 mg 05/28/21 13:25 Acetaminophen Tab 325 Mg Tab PO Q4HR PRN Fever and/or Mild Pain Albuterol/Ipratropium 3 ml 05/28/21 16:00 Ipratropium-Albuterol 3 Ml Neb INHALATION RT-Q4H JASON Diltiazem HCl 125 mg/ Sodium 125 mls @ 5 mls/hr 05/28/21 10:15 05/28/21 14:13 Chloride IV 0 mg/hr .Q24H JASON 0 mls/hr Infusion 5 MG/HR Miscellaneous Information 1 each 05/28/21 12:37 Kcentra Per Pharmacy 1 Each Misc MISCELLANE 05/28/21 23:00 DIRECTED PRN Bleeding Protocol Morphine Sulfate 2 mg 05/28/21 13:25 Morphine Sulfate 2 Mg/Ml Syringe IV Q2HR PRN Pain Scale 4 to 5 Naloxone HCl 0.2 mg 05/28/21 13:25 Naloxone 0.4 Mg/Ml 1 Ml Vial IV Q2M PRN Opioid Reversal Pantoprazole Sodium 40 mg 05/28/21 21:00 Pantoprazole 40 Mg/10 Ml Vial IVP BID JASON Intake and Output 05/27/21 05/28/21 05/28/21 22:59 06:59 14:59 Intake Total 25.583 Balance 25.583 Intake: Intake, IV Titration 25.583 Amount Diltiazem 125 mg In 25.583 Sodium Chloride 0.9% 100 ml @ 5 MG/HR 5 mls/hr IV .Q24H [facility] Rx#:[id number] Other: Weight 163.293 kg Patient Weight 05/29/21 06:59 Weight 163.293 kg 05/28/21 13:36 05/28/21 10:05
[2021-05-28 15:01] LABS: Basophils # (M) 0.07 k/uL (0-0.2); Neutrophils % (M) 73 %; Nucleated Red Blood Cells 1 /100 WBC (0-0); Total Cells Counted 200
[2021-05-28 15:02] LABS: Lymphocytes # (M) 1.04 k/uL (1.0-4.8); Monocytes # (M) 0.83 k/uL (0-1.0); Neutrophils # (M) 5.04 k/uL (1.3-7.7); Target Cells Present; WBC 6.9 k/uL (3.8-10.6)
[2021-05-28 15:04] LABS: RBC Fragments Present
--- NOTE | 2021-05-28 15:44 | P.CNPUL ---
History of Present Illness Consult date: 05/28/21 Reason for consult: dyspnea, hypoxemia, abnormal CXR/CT Chief complaint: Shortness of breath, weakness History of present illness: 60-year-old female patient of Dr. Lei with history of chronic atrial fibrillation, and patient is on Zaroxolyn for anticoagulation. Other medical history is taken for diabetes mellitus type 2, previous history of lymphoma in 2000, anxiety, former smoker, and hyperlipidemia. Patient presented to the emergency department by EMS for evaluation of increased shortness of breath, and severe weakness. Patient states that about a month and a half ago she had a fall, reports having some melanotic stools at home. She noticed increased shortness of breath especially with exertion. Denied any fever or chills, denied any episodes of chest pain. She states today she went to the bathroom and she was too weak to get up. She spent 3 hours just sitting on the toilet and then she had to alert her to call the ambulance. In the emergency department patient's hemoglobin was 5.8, platelet count was 233, white count was within normal limits at 6.8, INR was 1.9, potassium was 5.4, CO2 is 19, BUN is 21, creatinine is 1.8, lactic acid was 3.4, troponin was 0.354, and proBNP was 12,000. She was checked for COVID-19 and was found to be negative. Patient was also in SVT with a rate of 165, she was started on Cardizem infusion, she had subsequent converted to sinus rhythm. Cardizem drip has been discontinued, her Xarelto is currently on hold, patient will be transfused with 2 units of packed red blood cells. No complaints of abdominal pain, she is mildly short of breath with conversation but appears to be in no acute distress, she is on 2 L of oxygen her pulse ox is 100%, no fever or chills, she was seen in consultation by cardiology, who restarted her Coreg, patient received a dose of Kcentra to reverse anticoagulation. Chest x-ray revealed cardiomegaly with diffuse interstitial pattern possibly related to CHF versus interstitial pneumonia. Pneumonia since been less likely, patient received a dose of Lasix, she also has increased swelling in her bilateral lower extremities. She is currently awaiting a bed in the intensive care unit. Review of Systems All systems: negative Constitutional: Reports fatigue, Reports weakness, Denies chills, Denies fever Eyes: denies blurred vision, denies pain Ears, nose, mouth and throat: Denies headache, Denies sore throat Cardiovascular: Reports decreased exercise tolerance, Reports edema, Reports irregular heart beat, Denies chest pain, Denies shortness of breath Respiratory: Reports dyspnea, Reports respiratory infections, Reports wheezing, Denies cough Gastrointestinal: Denies abdominal pain, Denies diarrhea, Denies nausea, Denies vomiting Genitourinary: Denies dysuria, Denies hematuria Musculoskeletal: Denies myalgias Integumentary: Denies pruritus, Denies rash Neurological: Denies numbness, Denies weakness Psychiatric: Denies anxiety, Denies depression Endocrine: Denies fatigue, Denies weight change Past Medical History Past Medical History: Atrial Fibrillation, Cancer, Diabetes Mellitus Additional Past Medical History / Comment(s): see Dr Nielsen H & P, 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 History of Any Multi-Drug Resistant Organisms: None Reported Past Surgical History: Appendectomy Additional Past Surgical History / Comment(s): mediport years ago, & then removed Past Anesthesia/Blood Transfusion Reactions: No Reported Reaction Past Psychological History: Anxiety Smoking Status: Former smoker Past Alcohol Use History: None Reported, Rare Past Drug Use History: Marijuana Medications and Allergies Home Medications Medication Instructions Recorded Confirmed Type Rivaroxaban [Xarelto] 20 mg PO DAILY 06/22/14 05/28/21 History Spironolactone [Aldactone] 25 mg PO DAILY 06/22/14 05/28/21 History Latanoprost/Pf [Latanoprost 0.005% 1 drop BOTH EYES HS 12/28/18 05/28/21 History Eye Drop] clonazePAM [KlonoPIN] 1 mg PO BID PRN 12/28/18 05/28/21 History Amiodarone [Cordarone] 100 mg PO DAILY #90 tab 01/03/19 05/28/21 Rx Albuterol Sulfate [Proair Hfa] 2 puff INHALATION RT-Q6H PRN 05/28/21 05/28/21 History Atorvastatin [Lipitor] 20 mg PO HS 05/28/21 05/28/21 History Dorzolamide/Timolol/Pf 1 drop BOTH EYES BID 05/28/21 05/28/21 History [Dorzolamide 2%-Timolol 0.5%] Furosemide [Lasix] 20 mg PO DAILY 05/28/21 05/28/21 History Loratadine [Claritin] 10 mg PO DAILY 05/28/21 05/28/21 History carvediloL [Coreg] 6.25 mg PO BID 05/28/21 05/28/21 History lisinopriL [Zestril] 20 mg PO DAILY 05/28/21 05/28/21 History traZODone HCL [Desyrel] 100 mg PO HS PRN 05/28/21 05/28/21 History Allergies Allergy/AdvReac Type Severity Reaction Status Date / Time No Known Allergies Allergy Verified 05/28/21 13:58 Physical Exam Vitals: Vital Signs Temp Pulse Resp BP Pulse Ox 05/28/21 15:11 87 20 108/64 100 05/28/21 14:08 97.8 F 82 20 96/54 100 05/28/21 13:43 158 H 20 118/57 100 05/28/21 11:18 161 H 24 99/66 05/28/21 10:43 163 H 22 102/60 96 05/28/21 09:32 98.6 F 165 H 22 99/49 97 Intake and Output 05/28/21 05/28/21 05/28/21 06:59 14:59 22:59 Intake Total 25.583 Balance 25.583 Intake: Intake, IV Titration 25.583 Amount Diltiazem 125 mg In 25.583 Sodium Chloride 0.9% 100 ml @ 5 MG/HR 5 mls/hr IV .Q24H [facility] Rx#:[id number] Other: Weight 163.293 kg GENERAL EXAM: Alert, very pleasant, 60-year-old obese -[place] female, on 2 L of oxygen with pulse ox in the 100%, comfortable in no apparent distress. HEAD: Normocephalic/atraumatic. EYES: Normal reaction of pupils, equal size. Conjunctiva pink, sclera white. NOSE: Clear with pink turbinates. THROAT: No erythema or exudates. NECK: No masses, no JVD, no thyroid enlargement, no adenopathy. CHEST: No chest wall deformity. Symmetrical expansion. LUNGS: Equal air entry with scattered wheezing, and crackles CVS: Regular rate and rhythm, normal S1 and S2, no gallops, no murmurs, no rubs ABDOMEN: Soft, nontender. No hepatosplenomegaly, normal bowel sounds, no guarding or rigidity. EXTREMITIES: No clubbing, 1+ lower extremity edema no cyanosis, 2+ pulses and upper and lower extremities. MUSCULOSKELETAL: Muscle strength and tone normal. SPINE: No scoliosis or deformity SKIN: No rashes, patient has thickened skin on bilateral lower extremities CENTRAL NERVOUS SYSTEM: Alert and oriented -3. No focal deficits, tone is normal in all 4 extremities. PSYCHIATRIC: Alert and oriented -3. Appropriate affect. Intact judgment and insight. Results - Laboratory Findings CBC and BMP: 05/28/21 13:36 05/28/21 10:05 PT/INR, D-dimer PT 18.5 sec (9.0-12.0) H 05/28/21 10:05 INR 1.9 (<1.2) H 05/28/21 10:05 Abnormal lab findings: Abnormal Labs 05/28/21 05/28/21 05/28/21 10:05 10:05 10:05 RBC 3.32 L Hgb 5.8 L* Hct 22.7 L MCV 68.5 L MCH 17.3 L MCHC 25.3 L RDW 23.5 H Lymphocytes # (Manual) 0.61 L Nucleated RBCs 1 H PT 18.5 H INR 1.9 H Potassium 5.4 H Chloride 109 H Carbon Dioxide 19 L BUN 21 H Creatinine 1.80 H Plasma Lactic Acid Jim Total Bilirubin 1.5 H AST 47 H Troponin I Albumin 3.3 L Crossmatch 05/28/21 05/28/21 05/28/21 10:05 10:28 13:36 RBC 3.24 L Hgb 5.4 L* Hct 22.4 L MCV 69.3 L MCH 16.8 L MCHC 24.3 L RDW 23.4 H Lymphocytes # (Manual) Nucleated RBCs 1 H PT INR Potassium Chloride Carbon Dioxide BUN Creatinine Plasma Lactic Acid Jim 3.4 H* Total Bilirubin AST Troponin I 0.354 H* Albumin Crossmatch 05/28/21 05/28/21 14:00 14:00 RBC Hgb Hct MCV MCH MCHC RDW Lymphocytes # (Manual) Nucleated RBCs PT INR Potassium Chloride Carbon Dioxide BUN Creatinine Plasma Lactic Acid Jim Total Bilirubin AST Troponin I 0.378 H* Albumin Crossmatch See Detail - Diagnostic Findings Chest x-ray: report reviewed, image reviewed Additional studies: EKG reviewed Assessment and Plan Plan: Assessment: #1. Acute hypoxic respiratory failure related to acute exacerbation of CHF, with unknown ejection fraction #2. Dyspnea, related to acute blood loss anemia, patient presented with a hemoglobin of 5.8, with reports of melanotic stools #3. Chronic atrial fibrillation on Kcentra. Xarelto currently on hold, patient was given a dose of Kcentra, 2 units of packed red blood cells is pending for transfusion #4. Former smoker, in remission #6. Suspect underlying history of COPD #7. Acute kidney injury #8. Troponin leak, possibly related to hypoxia, profound anemia, oxygen supply demand mismatch. Cardiology is following #9. Lactic acidosis, mild, improved, not related to sepsis, but cultures are pending #10. Diabetes mellitus type 2 #11. Morbid obesity #12. Hypertension #13. Hyperlipidemia Plan: Currently hemodynamically patient is more stable Heart rate is better controlled, Blood pressure stable Patient will be transfused with 2 units of packed red blood cells Follow serial H&H's Xarelto is on hold GI service evaluation has been requested Cardiology is following Continue close monitoring in intensive care unit once a bed becomes available, liver and outpatient awaiting a bed in the emergency department Appears to be stable We may reevaluate the patient for downgrade to 3 S. No need for steroids, we'll add bronchodilators I performed a history & physical examination of the patient and discussed their management with my nurse practitioner, Belinda Delgadillo. I reviewed the nurse practitioner's note and agree with the documented findings and plan of care. Lung sounds are positive for diffuse wheezes throughout the lung boggs. The findings and the impression was discussed with the patient. I attest to the documentation by the nurse practitioner. Time with Patient: Greater than 30
[2021-05-28] MEDS ORDERED: IPRATROPIUM-ALBUTEROL 3 ML NEB INHALATION PRN (15:45)
[2021-05-28] MEDS ORDERED: IPRATROPIUM-ALBUTEROL 3 ML NEB INHALATION SCH (16:00)
[2021-05-28] MEDS ORDERED: clonazePAM 1 MG TAB PO PRN (16:52)
[2021-05-28] MEDS ORDERED: traZODone HCL 100 MG TAB PO PRN (16:52)
[2021-05-28] MEDS ORDERED: ALBUTEROL NEBULIZED 2.5 MG/3 ML INHALATION PRN (16:52)
[2021-05-28] MEDS ORDERED: FUROSEMIDE 10 MG/ML 4 ML VIAL IV SCH (18:00)
--- NOTE | 2021-05-28 19:21 | HP ---
HISTORY AND PHYSICAL DATE OF SERVICE: 05/28/2021 CHIEF COMPLAINT: Multiple complaints including dizziness and weakness. HISTORY OF PRESENT ILLNESS: This 60-year-old woman with a past medical history of multiple medical problems, including atrial fibrillation, history of diabetes mellitus, history of lymphoma, history of appendectomy, being followed by Dr. Lei in the outpatient setting not feeling well for the past several days. Patient had some cough and shortness of breath. The patient also feeling . The patient also being treated for bronchitis recently and as well as cough. Because of lack of improvement, the patient came to [facility] and was admitted to the hospital for further evaluation and treatment. The patient was found to have SVT. SVT did not respond to multiple doses of adenosine. The patient also had anemia and multiple lab abnormalities. Cardiology and Pulmonary following the patient closely. The patient was thought to have CHF, acute exacerbation as well as chronic atrial fibrillation and the patient is being admitted for further evaluation and treatment. There is no history of any fever, rigor or chills at this time. PAST MEDICAL HISTORY: History of atrial fibrillation, history of diabetes type 2, history of lymphoma, history of anxiety. MEDICATIONS: Reviewed which include: Dorzolamide, Aldactone, Claritin, latanoprost, ProAir HFA, Desyrel, Klonopin, Lasix, Zestril, Xarelto, Coreg and Lipitor, Cordarone. Doses noted. ALLERGIES: None. FAMILY HISTORY: No history of heart disease or strokes in the family. SOCIAL HISTORY: Previous history of smoking, history of THC. REVIEW OF SYSTEMS: ENT: No diminished vision. No diminished hearing. CARDIOVASCULAR as mentioned earlier. RESPIRATORY: As mentioned earlier. GI: As mentioned earlier. no dysuria. NERVOUS SYSTEM: No numbness, weakness. ALLERGY/IMMUNOLOGY: No asthma or hayfever. MUSCULOSKELETAL as mentioned earlier. HEMATOLOGY/ONCOLOGY: No history of anemia. ENDOCRINE: As mentioned earlier. CONSTITUTIONAL: As mentioned earlier. DERMATOLOGY negative. RHEUMATOLOGY: Negative. PSYCHIATRY as mentioned earlier. PHYSICAL EXAMINATION: Patient is alert, oriented x3. The pulse is 82, blood pressure is 107/56, respirations 16, temperature 98 degrees. Pulse ox 100 percent on 2 L. HEENT: Conjunctivae normal. Oral mucosa moist. NECK is no jugular venous distention. No carotid bruit. No lymph node enlargement. CARDIOVASCULAR: S1, S2 muffled. RESPIRATORY: Breath sounds diminished in respiration the bases. A few scattered rhonchi and crackles. ABDOMEN: Soft, obese, nontender. No mass palpable. LEGS: No edema. No swelling. NERVOUS SYSTEM: Higher functions as mentioned earlier. Moves all four limbs. No focal deficits. LYMPHATICS: No lymph nodes palpable in the neck, axillae or groin. SKIN: No ulcer, rashes or bleeding. JOINTS: No active deforming arthropathy. LABORATORY DATA: At this time shows WBC 6.8, hemoglobin 12.4, and troponins are found to be 0.378. Lactic acid elevated. Covid 19 is negative. Sodium 130, potassium 5.4. Creatinine is 1.80. The baseline creatinine is 2.7. ASSESSMENT: 1. Supraventricular tachycardia, possibly sinus tachycardia. No response to adenosine. 2. Anemia with possibly acute blood loss anemia. 3. Congestive heart failure, acute exacerbation with ejection fraction unknown. 4. Acute hypoxic respiratory failure. 5. History of chronic atrial fibrillation. 6. History of diabetes type 2. 7. History of lymphoma. 8. History of appendectomy. 9. History of anxiety. 10.Remote history of nicotine dependence. 11.History of THC. 12.Anemia microcytic. 13.Elevated PT/INR. 14.Hyperkalemia secondary to renal failure. 15.Acute renal failure. 16.Elevated bilirubin. 17.Increased AST. 18.Troponin 0.0378, indeterminate rule out acute ees-[id number]-elevation myocardial infarction. 19.Hypoalbuminemia with mild protein calorie malnutrition. RECOMMENDATIONS AND DISCUSSION: This 60-year-old woman who presented with multiple complex medical issues, we will monitor the patient closely, continue the current medications, management and symptomatic treatment. We will initiate IV diuretics. Transfusions. We will obtain Gastroenterology as well as Cardiology and Pulmonology evaluations. Resume the home medications. Prognosis extremely guarded because of multiple complex medical issues. Further recommendations to follow. INR is 1.9. I would also recommend to hold the antiplatelets Xarelto at this time. Prognosis guarded. Further recommendations to follow. A copy of this dictation is being forwarded to Dr. Lei who is the primary physician. MMODL / IJN: [id number] / MTDD
[2021-05-28] MEDS: IPRATROPIUM-ALBUTEROL 3 ML NEB INHALATION SCH (20:34)
[2021-05-28] MEDS: carvediloL 6.25 MG TAB PO SCH (22:08)
[2021-05-28] MEDS: ATORVASTATIN 20 MG TAB PO SCH (22:08)
[2021-05-28] MEDS: FUROSEMIDE 10 MG/ML 4 ML VIAL IV SCH (22:10)
[2021-05-28] MEDS: PANTOPRAZOLE 40 MG/10 ML VIAL IVP SCH (22:10)
[2021-05-28 23:42] LABS: Glucose,Whole Blood 103 mg/dL (75-99)
[2021-05-29] MEDS: DORZOLAMIDE-TIMOLOL 2.23%/0.68 10ML BTL BOTH EYES SCH ×3 (01:19→19:54)
[2021-05-29] MEDS: LATANOPROST 0.005% OPHTH DROPS 2.5 ML BTL BOTH EYES SCH ×2 (01:20→21:14)
[2021-05-29] MEDS: FUROSEMIDE 10 MG/ML 4 ML VIAL IV SCH ×2 (04:19→15:10)
[2021-05-29 06:20] LABS: Anisocytosis Moderate; HCT 25.9 % (34.0-46.0); Hypochromasia Marked; MCH 19.5 pg (25.0-35.0); MCHC 26.1 g/dL (31.0-37.0); Mean Platelet Volume 9.2; Microcytosis Marked; Platelet Count 189 k/uL (150-450); Poikilocytosis Marked; RBC 3.47 m/uL (3.80-5.40); RDW 23.8 % (11.5-15.5)
[2021-05-29 06:48] LABS: HGB 6.8 gm/dL (11.4-16.0)
[2021-05-29 06:49] LABS: MCV 74.7 fL (80.0-100.0)
[2021-05-29] MEDS: carvediloL 6.25 MG TAB PO SCH ×2 (07:03→16:56)
[2021-05-29 07:12] LABS: Calcium 8.6 mg/dL (8.4-10.2); Potassium 5.1 mmol/L (3.5-5.1)
--- NOTE | 2021-05-29 08:26 | P.PN ---
Subjective Progress Note Date: 05/29/21 60-year-old female patient of Dr. Lei with history of chronic atrial fibrillation, and patient is on Zaroxolyn for anticoagulation. Other medical history is taken for diabetes mellitus type 2, previous history of lymphoma in 2000, anxiety, former smoker, and hyperlipidemia. Patient presented to the [facility] department by EMS for evaluation of increased shortness of breath, and severe weakness. Patient states that about a month and a half ago she had a fall, reports having some melanotic stools at home. She noticed increased shortness of breath especially with exertion. Denied any fever or chills, denied any episodes of chest pain. She states today she went to the bathroom and she was too weak to get up. She spent 3 hours just sitting on the toilet and then she had to alert her to call the ambulance. In the emergency department patient's hemoglobin was 5.8, platelet count was 233, white count was within normal limits at 6.8, INR was 1.9, potassium was 5.4, CO2 is 19, BUN is 2 1, creatinine is 1.8, lactic acid was 3.4, troponin was 0.354, and proBNP was 12,000. She was checked for COVID-19 and was found to be negative. Patient was also in SVT with a rate of 165, she was started on Cardizem infusion, she had subsequent converted to sinus rhythm. Cardizem drip has been discontinued, her Xarelto is currently on hold, patient will be transfused with 2 units of packed red blood cells. No complaints of abdominal pain, she is mildly short of breath with conversation but appears to be in no acute distress, she is on 2 L of oxygen her pulse ox is 100%, no fever or chills, she was seen in consultation by cardiology, who restarted her Coreg, patient received a dose of Kcentra to reverse anticoagulation. Chest x-ray revealed cardiomegaly with diffuse interstitial pattern possibly related to CHF versus interstitial pneumonia. Pneumonia since been less likely, patient received a dose of Lasix, she also has increased swelling in her bilateral lower extremities. She is currently awaiting a bed in the intensive care unit. On today's evaluation on 05/29/2021 patient seen in follow-up in the intensive care unit, she is awake and alert, in no acute distress, she is currently on 2 L of oxygen pulse ox is 96%, she is afebrile, she had another episode of SVT during the night, Cardizem drip was started, and the episode was self-limiting, patient is back in sinus mechanism with a rate of 71 BPM, blood pressure is 92/52, patient is not on any vasopressor support, she states she is feeling better today. No breathing difficulty. No cough, no chest pain, today's h emoglobin is 6.8, and patient will receive another unit of packed red blood cells, for a total of 3 units during this admission. No recurrence of melanotic stools since admission. GI service evaluation is pending. Remains nothing by mouth. Patient is on PPI therapy, Lasix 40 mg every 8 hours has been started, for acute exacerbation of CHF. Otherwise no other events overnight, and patient is stable for transfer out of intensive care unit to regular 3 S. bed. Objective - Vital Signs Vital signs: Vital Signs Temp 97.9 F 05/29/21 04:00 Pulse 69 05/29/21 07:00 Resp 18 05/29/21 07:00 BP 88/52 05/29/21 07:00 Pulse Ox 93 L 05/29/21 07:00 Intake & Output 05/28/21 05/29/21 05/29/21 18:59 06:59 18:59 Intake Total 535.583 660 Output Total 0 0 Balance 535.583 660 0 Weight 163.293 kg 191.4 kg Intake: Intake, IV Titration 25.583 Amount Diltiazem 125 mg In 25.583 Sodium Chloride 0.9% 100 ml @ 5 MG/HR 5 mls/hr IV .Q24H [facility] Rx#:[id number] Blood Product 310 660 Rc As-1 Unit 310 [id number] Rc As-1 Unit 310 [id number] Other 200 Rc As-1 Unit 200 [id number] Output: Urine 0 0 Other: Voiding Method External Catheter # Voids 1 - Exam GENERAL EXAM: Alert, very pleasant, 60-year-old obese -Citizen Of [place] female, on 2 L of oxygen with pulse ox in the 100%, comfortable in no apparent distress. HEAD: Normocephalic/atraumatic. EYES: Normal reaction of pupils, equal size. Conjunctiva pink, sclera white. NOSE: Clear with pink turbinates. THROAT: No erythema or exudates. NECK: No masses, no JVD, no thyroid enlargement, no adenopathy. CHEST: No chest wall deformity. Symmetrical expansion. LUNGS: Equal air entry with scattered wheezing, and crackles CVS: Regular rate and rhythm, normal S1 and S2, no gallops, no murmurs, no rubs ABDOMEN: Soft, nontender. No hepatosplenomegaly, normal bowel sounds, no guardi ng or rigidity. EXTREMITIES: No clubbing, 1+ lower extremity edema no cyanosis, 2+ pulses and upper and lower extremities. MUSCULOSKELETAL: Muscle strength and tone normal. SPINE: No scoliosis or deformity SKIN: No rashes, patient has thickened skin on bilateral lower extremities CENTRAL NERVOUS SYSTEM: Alert and oriented -3. No focal deficits, tone is normal in all 4 extremities. PSYCHIATRIC: Alert and oriented -3. Appropriate affect. Intact judgment and insight. - Labs CBC & Chem 7: 05/29/21 05:11 05/29/21 05:11 Labs: Abnormal Lab Results - Last 24 Hours (Table) 05/28/21 05/28/21 05/28/21 Range/Units 10:05 10:05 10:05 RBC 3.32 L (3.80-5.40) m/uL Hgb 5.8 L* (11.4-16.0) gm/dL Hct 22.7 L (34.0-46.0) % MCV 68.5 L (80.0-100.0) fL MCH 17.3 L (25.0-35.0) pg MCHC 25.3 L (31.0-37.0) g/dL RDW 23.5 H (11.5-15.5) % Lymphocytes # (Manual) 0.61 L (1.0-4.8) k/uL Nucleated RBCs 1 H (0-0) /100 WBC PT 18.5 H (9.0-12.0) sec INR 1.9 H (<1.2) Potassium 5.4 H (3.5-5.1) mmol/L Chloride 109 H (98-107) mmol/L Carbon Dioxide 19 L (22-30) mmol/L BUN 21 H (7-17) mg/dL Creatinine 1.80 H (0.52-1.04) mg/dL POC Glucose (mg/dL) (75-99) mg/dL Plasma Lactic Acid Jim (0.7-2.0) mmol/L Total Bilirubin 1.5 H (0.2-1.3) mg/dL AST 47 H (14-36) U/L Troponin I (0.000-0.034) ng/mL Albumin 3.3 L (3.5-5.0) g/dL Crossmatch 05/28/21 05/28/21 05/28/21 Range/Units 10:05 10:28 13:36 RBC 3.24 L (3.80-5.40) m/uL Hgb 5.4 L* (11.4-16.0) gm/dL Hct 22.4 L (34.0-46.0) % MCV 69.3 L (80.0-100.0) fL MCH 16.8 L (25.0-35.0) pg MCHC 24.3 L (31.0-37.0) g/dL RDW 23.4 H (11.5-15.5) % Lymphocytes # (Manual) (1.0-4.8) k/uL Nucleated RBCs 1 H (0-0) /100 WBC PT (9.0-12.0) sec INR (<1.2) Potassium (3.5-5.1) mmol/L Chloride (98-107) mmol/L Carbon Dioxide (22-30) mmol/L BUN (7-17) mg/dL Creatinine (0.52-1.04) mg/dL POC Glucose (mg/dL) (75-99) mg/dL Plasma Lactic Acid Jim 3.4 H* (0.7-2.0) mmol/L Total Bilirubin (0.2-1.3) mg/dL AST (14-36) U/L Troponin I 0.354 H* (0.000-0.034) ng/mL Albumin (3.5-5.0) g/dL Crossmatch 05/28/21 05/28/21 05/28/21 Range/Units 14:00 14:00 23:41 RBC (3.80-5.40) m/uL Hgb (11.4-16.0) gm/dL Hct (34.0-46.0) % MCV (80.0-100.0) fL MCH (25.0-35.0) pg MCHC (31.0-37.0) g/dL RDW (11.5-15.5) % Lymphocytes # (Manual) (1.0-4.8) k/uL Nucleated RBCs (0-0) /100 WBC PT (9.0-12.0) sec INR (<1.2) Potassium (3.5-5.1) mmol/L Chloride (98-107) mmol/L Carbon Dioxide (22-30) mmol/L BUN (7-17) mg/dL Creatinine (0.52-1.04) mg/dL POC Glucose (mg/dL) 103 H (75-99) mg/dL Plasma Lactic Acid Jim (0.7-2.0) mmol/L Total Bilirubin (0.2-1.3) mg/dL AST (14-36) U/L Troponin I 0.378 H* (0.000-0.034) ng/mL Albumin (3.5-5.0) g/dL Crossmatch See Detail 05/29/21 05/29/21 Range/Units 05:11 05:11 RBC 3.47 L (3.80-5.40) m/uL Hgb 6.8 L* (11.4-16.0) gm/dL Hct 25.9 L (34.0-46.0) % MCV 74.7 L D (80.0-100.0) fL MCH 19.5 L (25.0-35.0) pg MCHC 26.1 L (31.0-37.0) g/dL RDW 23.8 H (11.5-15.5) % Lymphocytes # (Manual) (1.0-4.8) k/uL Nucleated RBCs (0-0) /100 WBC PT (9.0-12.0) sec INR (<1.2) Potassium (3.5-5.1) mmol/L Chloride 110 H (98-107) mmol/L Carbon Dioxide (22-30) mmol/L BUN 23 H (7-17) mg/dL Creatinine 1.96 H (0.52-1.04) mg/dL POC Glucose (mg/dL) (75-99) mg/dL Plasma Lactic Acid Jim (0.7-2.0) mmol/L Total Bilirubin (0.2-1.3) mg/dL AST (14-36) U/L Troponin I (0.000-0.034) ng/mL Albumin (3.5-5.0) g/dL Crossmatch Assessment and Plan Plan: Assessment: #1. Acute hypoxic respiratory failure related to acute exacerbation of CHF, with unknown ejection fraction #2. Dyspnea, related to acute blood loss anemia, patient presented with a hemoglobin of 5.8, with reports of melanotic stools #3. Chronic atrial fibrillation on Kcentra. Xarelto currently on hold, patient was given a dose of Kcentra, 2 units of packed red blood cells is pending for transfusion. Patient is receiving another unit of packed red blood cells this morning for hemoglobin of 6.8 #4. Former smoker, in remission #6. Suspect underlying history of COPD #7. Acute kidney injury #8. Troponin leak, possibly related to hypoxia, profound anemia, oxygen supply demand mismatch. Cardiology is following #9. Lactic acidosis, mild, improved, not related to sepsis, but cultures are pending #10. Diabetes mellitus type 2 #11. Morbid obesity #12. Hypertension #13. Hyperlipidemia #14. Episode of SVT, or A. fib with RVR, currently back in sinus mechanism Plan: Currently hemodynamically patient is more stable Heart rate is better controlled, Blood pressure stable Patient will receive another unit of packed red blood cells this morning for hemoglobin of 6.8, no active bleeding overnight Follow serial H&H's Xarelto is on hold GI service evaluation has been requested Cardiology is following Continue close monitoring in intensive care unit once a bed becomes available, liver and outpatient awaiting a bed in the emergency department Appears to be stable Continue diuretics, continue bronchodilators, Follow-up chest x-ray tomorrow, daily weights Daily electrolytes and renal profile Stable for transfer out of intensive care unit to 3 S. bed I performed a history & physical examination of the patient and discussed their management with my nurse practitioner, Belinda Delgadillo. I reviewed the nurse practitioner's note and agree with the documented findings and plan of care. Lung sounds are positive for diffuse wheezes throughout the lung boggs. The findings and the impression was discussed with the patient. I attest to the documentation by the nurse practitioner. Time with Patient: Less than 30
[2021-05-29] MEDS: IPRATROPIUM-ALBUTEROL 3 ML NEB INHALATION SCH ×3 (08:29→20:45)
[2021-05-29] MEDS: PANTOPRAZOLE 40 MG/10 ML VIAL IVP SCH ×2 (08:44→19:54)
[2021-05-29] MEDS ORDERED: bisacodyL 5 MG TABLET.DR PO STA (08:57)
[2021-05-29] MEDS ORDERED: AMIODARONE 100 MG TAB PO SCH (09:00)
[2021-05-29 09:18] LABS: Eosinophils # (M) 0.06 k/uL (0-0.7); Lymphocytes # (M) 0.76 k/uL (1.0-4.8); Monocytes # (M) 0.76 k/uL (0-1.0); Neutrophils # (M) 4.79 k/uL (1.3-7.7); Neutrophils % (M) 76 %; Nucleated Red Blood Cells 4 /100 WBC (0-0); Target Cells Present; Total Cells Counted 200; WBC 6.3 k/uL (3.8-10.6)
[2021-05-29 09:19] LABS: Mixed Population RBC Present; RBC Fragments Present
[2021-05-29 11:25] LABS: Glucose,Whole Blood 97 mg/dL (75-99)
[2021-05-29] MEDS: DILTIAZEM 125 MG in SODIUM CHLORIDE 0.9% 100 ML IV SCH (11:30)
--- NOTE | 2021-05-29 12:10 | PN ---
PROGRESS NOTE Radha is a 60-year-old lady who is admitted to the hospital with severe symptomatic anemia with hemoglobin of 5 and was in atrial fibrillation with rapid ventricular rate. She was treated with oral amiodarone and intravenous Cardizem and through last night she converted to sinus rhythm. Her anticoagulant is currently on hold and she is on carvedilol and amiodarone. The Cardizem had been stopped. She received 3 units of blood transfusion and the hemoglobin had come up to 6.8. She is to undergo EGD, colonoscopy tomorrow. EXAM: Comfortable at rest. Afebrile. Heart rate is 70 beats per minute. Blood pressure is 97/55, respiratory 16. Chest exam reveals good air entry bilaterally. Heart exam reveals first and second heart sounds. Grade 3 x 6 ejection systolic murmur in the aortic area. Abdomen: Soft. Exam of extremities reveals bilateral 1+ pitting edema, chronic stasis changes and pigmentation. LABS: Show that the hemoglobin is 6.8, platelet count is 189, potassium is 5.1. BUN is 23, creatinine is 1.96. Tropes were slightly elevated. ASSESSMENT AND PLAN: 1. Troponin elevation secondary to type 2 myocardial infarction. 2. Severe symptomatic anemia. 3. Paroxysmal atrial fibrillation. 4. Renal insufficiency. PLAN: Patient will continue the oral amiodarone, Lipitor, Coreg, and Lasix that she is on. The patient is an acceptable risk candidate to undergo EGD and colonoscopy. MMTRACIL / LUIS ALBERTON: [id number] /
[2021-05-29] MEDS ORDERED: PEG 3350-NA SULF,BICARB,CL/KCL 4,000 ML BOTTLE PO ONE (15:00)
--- NOTE | 2021-05-29 15:28 | P.CONS ---
History of Present Illness - Reason for Consult Consult date: 05/29/21 Anemia, possible GI bleed Requesting physician: Kem Murray - Chief Complaint Shortness of breath - History of Present Illness This a 60-year-old -[place] female with a past medical history of atrial fibrillation, lymphoma, and diabetes mellitus who presented to the emergency department yesterday with complaints of dizziness, cough and dyspnea. Patient was also having heart palpitations and was found to be in SVT. She does take Xarelto at home, last dose on 05/26/2021. On admission she was noted to have a hemoglobin of 5.8, she also had a BNP of 12,000. She was admitted to the ICU and has been given 2 units of PRBC transfusion. Her repeat hemoglobin this morning was 6.8. Another unit has been ordered. Patient denies any previous history of GI bleed. She does believe though many years ago she did have to receive a blood transfusion however cannot recall why. She denies any previous EGD or colonoscopy. Denies any abdominal pain, nausea, or vomiting. She states she does not have any blood in her bowel movement, denies any black tarry stool. Review of Systems REVIEW OF SYSTEMS: CARDIOPULMONARY: Heart palpitations and shortness of breath along with dizziness on admission Gastrointestinal: No abdominal pain.. No nausea or vomiting. No hematemesis, coffee-ground emesis. No rectal bleeding, or melena. GENITOURINARY: No dysuria or hematuria. MUSCULOSKELETAL: Reports normal range of motion., Joint pain. SKIN: No rashes. No jaundice. ENDOCRINE: No chills, fevers. No excessive weight gain or loss. No polydipsia or polyuria. PSYCHIATRIC: Unremarkable. NEUROLOGY: No change in mental status. Denies headache. ENT: Vision unremarkable. CONSTITUTIONAL: No recent weight loss. No fever, chills, night sweats. Past Medical History Past Medical History: Atrial Fibrillation, Cancer, Diabetes Mellitus Additional Past Medical History / Comment(s): see Dr Nielsen H & P, 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 History of Any Multi-Drug Resistant Organisms: None Reported Past Surgical History: Appendectomy Additional Past Surgical History / Comment(s): mediport years ago, & then removed Past Anesthesia/Blood Transfusion Reactions: No Reported Reaction Past Psychological History: Anxiety Smoking Status: Former smoker Past Alcohol Use History: None Reported, Rare Past Drug Use History: Marijuana Medications and Allergies Home Medications Medication Instructions Recorded Confirmed Type Rivaroxaban [Xarelto] 20 mg PO DAILY 06/22/14 05/28/21 History Spironolactone [Aldactone] 25 mg PO DAILY 06/22/14 05/28/21 History Latanoprost/Pf [Latanoprost 0.005% 1 drop BOTH EYES HS 12/28/18 05/28/21 History Eye Drop] clonazePAM [KlonoPIN] 1 mg PO BID PRN 12/28/18 05/28/21 History Amiodarone [Cordarone] 100 mg PO DAILY #90 tab 01/03/19 05/28/21 Rx Albuterol Sulfate [Proair Hfa] 2 puff INHALATION RT-Q6H PRN 05/28/21 05/28/21 History Atorvastatin [Lipitor] 20 mg PO HS 05/28/21 05/28/21 History Dorzolamide/Timolol/Pf 1 drop BOTH EYES BID 05/28/21 05/28/21 History [Dorzolamide 2%-Timolol 0.5%] Furosemide [Lasix] 20 mg PO DAILY 05/28/21 05/28/21 History Loratadine [Claritin] 10 mg PO DAILY 05/28/21 05/28/21 History carvediloL [Coreg] 6.25 mg PO BID 05/28/21 05/28/21 History lisinopriL [Zestril] 20 mg PO DAILY 05/28/21 05/28/21 History traZODone HCL [Desyrel] 100 mg PO HS PRN 05/28/21 05/28/21 History Allergies Allergy/AdvReac Type Severity Reaction Status Date / Time No Known Allergies Allergy Verified 05/28/21 13:58 Physical Exam Vitals: Vital Signs Temp Pulse Resp BP Pulse Ox 05/29/21 08:39 73 05/29/21 08:33 72 05/29/21 07:00 69 18 88/52 93 L 05/29/21 06:30 70 16 98/52 95 05/29/21 06:00 84 8 L 89/57 96 05/29/21 05:30 87 10 L 95/49 96 05/29/21 05:00 84 12 91/51 96 05/29/21 04:30 81 14 90/52 97 05/29/21 04:00 97.9 F 84 12 93/55 98 05/29/21 03:30 84 12 87/59 96 05/29/21 03:00 67 16 92/66 98 05/29/21 02:50 70 13 92/66 98 05/29/21 02:40 67 6 L 92/66 98 05/29/21 02:30 67 13 72/57 99 05/29/21 02:20 68 9 L 72/57 100 05/29/21 02:10 70 9 L 72/57 98 05/29/21 02:00 76 12 87/49 95 05/29/21 01:50 66 8 L 87/49 98 05/29/21 01:40 74 11 L 87/49 93 L 05/29/21 01:30 75 23 85/47 96 05/29/21 01:20 67 16 85/47 88 L 05/29/21 01:10 69 10 L 85/47 100 05/29/21 01:00 98.1 F 79 24 85/47 97 05/29/21 00:50 142 H 6 L 82/64 100 05/29/21 00:40 144 H 4 L 82/64 98 05/29/21 00:30 98.1 F 144 H 12 92/53 98 05/29/21 00:20 149 H 29 H 92/53 99 05/29/21 00:10 149 H 8 L 92/53 100 05/29/21 00:00 98 F 151 H 9 L 92/77 98 05/28/21 23:45 98 F 155 H 20 92/53 98 05/28/21 23:16 98.1 F 93 18 146/79 05/28/21 22:46 98.0 F 77 16 136/63 05/28/21 22:35 97.9 F 75 16 136/63 05/28/21 22:10 82 18 124/59 96 05/28/21 18:16 85 135/42 100 05/28/21 15:54 98.3 F 82 18 120/49 05/28/21 15:43 98.2 F 85 16 112/59 05/28/21 15:40 98.4 F 78 18 135/42 05/28/21 15:11 87 20 108/64 100 05/28/21 14:08 97.8 F 82 20 96/54 100 05/28/21 13:43 158 H 20 118/57 100 05/28/21 11:18 161 H 24 99/66 05/28/21 10:43 163 H 22 102/60 96 05/28/21 09:32 98.6 F 165 H 22 99/49 97 Intake and Output 05/28/21 05/29/21 05/29/21 22:59 06:59 14:59 Intake Total 510 660 Output Total 0 0 Balance 510 660 0 Intake: Blood Product 310 660 Rc As-1 Unit 0 310 [id number] Rc As-1 Unit 310 [id number] Other 200 Rc As-1 Unit 200 [id number] Output: Urine 0 0 Other: Voiding Method External Catheter # Voids 1 Weight 163.293 kg 191.4 kg General appearance: The patient is alert, oriented, appears in no acute distress. HET: Head is normocephalic and atraumatic. Conjunctiva pink. Sclera anicteric. Neck: Supple without lymphadenopathy. Trachea midline. Heart: S1 S2. Regular rate and rhythm. Lungs: Bilateral scattered wheezing. Abdomen: Soft, obese, nontender, nondistended with bowel sounds. No guarding or rigidity. Skin: No rashes. No jaundice. Extremities: Normal skin color and turgor. Bilateral lower extremity edema. Neurological: No focal deficits. Alert and oriented x3. Results CBC & Chem 7: 05/29/21 05:11 05/29/21 05:11 Labs: Abnormal Lab Results - Last 24 Hours (Table) 05/28/21 05/28/21 05/28/21 Range/Units 10:05 10:05 10:05 RBC 3.32 L (3.80-5.40) m/uL Hgb 5.8 L* (11.4-16.0) gm/dL Hct 22.7 L (34.0-46.0) % MCV 68.5 L (80.0-100.0) fL MCH 17.3 L (25.0-35.0) pg MCHC 25.3 L (31.0-37.0) g/dL RDW 23.5 H (11.5-15.5) % Lymphocytes # (Manual) 0.61 L (1.0-4.8) k/uL Nucleated RBCs 1 H (0-0) /100 WBC PT 18.5 H (9.0-12.0) sec INR 1.9 H (<1.2) Potassium 5.4 H (3.5-5.1) mmol/L Chloride 109 H (98-107) mmol/L Carbon Dioxide 19 L (22-30) mmol/L BUN 21 H (7-17) mg/dL Creatinine 1.80 H (0.52-1.04) mg/dL POC Glucose (mg/dL) (75-99) mg/dL Plasma Lactic Acid Jim (0.7-2.0) mmol/L Total Bilirubin 1.5 H (0.2-1.3) mg/dL AST 47 H (14-36) U/L Troponin I (0.000-0.034) ng/mL Albumin 3.3 L (3.5-5.0) g/dL Crossmatch 05/28/21 05/28/21 05/28/21 Range/Units 10:05 10:28 13:36 RBC 3.24 L (3.80-5.40) m/uL Hgb 5.4 L* (11.4-16.0) gm/dL Hct 22.4 L (34.0-46.0) % MCV 69.3 L (80.0-100.0) fL MCH 16.8 L (25.0-35.0) pg MCHC 24.3 L (31.0-37.0) g/dL RDW 23.4 H (11.5-15.5) % Lymphocytes # (Manual) (1.0-4.8) k/uL Nucleated RBCs 1 H (0-0) /100 WBC PT (9.0-12.0) sec INR (<1.2) Potassium (3.5-5.1) mmol/L Chloride (98-107) mmol/L Carbon Dioxide (22-30) mmol/L BUN (7-17) mg/dL Creatinine (0.52-1.04) mg/dL POC Glucose (mg/dL) (75-99) mg/dL Plasma Lactic Acid Jim 3.4 H* (0.7-2.0) mmol/L Total Bilirubin (0.2-1.3) mg/dL AST (14-36) U/L Troponin I 0.354 H* (0.000-0.034) ng/mL Albumin (3.5-5.0) g/dL Crossmatch 05/28/21 05/28/21 05/28/21 Range/Units 14:00 14:00 23:41 RBC (3.80-5.40) m/uL Hgb (11.4-16.0) gm/dL Hct (34.0-46.0) % MCV (80.0-100.0) fL MCH (25.0-35.0) pg MCHC (31.0-37.0) g/dL RDW (11.5-15.5) % Lymphocytes # (Manual) (1.0-4.8) k/uL Nucleated RBCs (0-0) /100 WBC PT (9.0-12.0) sec INR (<1.2) Potassium (3.5-5.1) mmol/L Chloride (98-107) mmol/L Carbon Dioxide (22-30) mmol/L BUN (7-17) mg/dL Creatinine (0.52-1.04) mg/dL POC Glucose (mg/dL) 103 H (75-99) mg/dL Plasma Lactic Acid Jim (0.7-2.0) mmol/L Total Bilirubin (0.2-1.3) mg/dL AST (14-36) U/L Troponin I 0.378 H* (0.000-0.034) ng/mL Albumin (3.5-5.0) g/dL Crossmatch See Detail 05/29/21 05/29/21 Range/Units 05:11 05:11 RBC 3.47 L (3.80-5.40) m/uL Hgb 6.8 L* (11.4-16.0) gm/dL Hct 25.9 L (34.0-46.0) % MCV 74.7 L D (80.0-100.0) fL MCH 19.5 L (25.0-35.0) pg MCHC 26.1 L (31.0-37.0) g/dL RDW 23.8 H (11.5-15.5) % Lymphocytes # (Manual) (1.0-4.8) k/uL Nucleated RBCs (0-0) /100 WBC PT (9.0-12.0) sec INR (<1.2) Potassium (3.5-5.1) mmol/L Chloride 110 H (98-107) mmol/L Carbon Dioxide (22-30) mmol/L BUN 23 H (7-17) mg/dL Creatinine 1.96 H (0.52-1.04) mg/dL POC Glucose (mg/dL) (75-99) mg/dL Plasma Lactic Acid Jim (0.7-2.0) mmol/L Total Bilirubin (0.2-1.3) mg/dL AST (14-36) U/L Troponin I (0.000-0.034) ng/mL Albumin (3.5-5.0) g/dL Crossmatch Assessment and Plan (1) Microcytic anemia Narrative/Plan: 60-year-old female who presented to the emergency department with complaints of heart palpitations shortness of breath, and dizziness who was found to have a hemoglobin of 5.8. She is status post 2 units of PRBC transfusion with a repeat hemoglobin of 6.8. Another unit on order. No previous history of EGD or colonoscopy. She denies any blood in her stool or black tarry stool. Denies abdominal pain, nausea, or vomiting. No history of NSAID use or peptic ulcer disease. She does have a history of atrial fibrillation on anticoagulation. Last dose reported as 05/26/2021. Patient does believe she has required a blood transfusion in the past, however she states was many years ago. Unknown etiology at this time as there is no evidence of GI bleed. Possible etiologies include peptic ulcer disease gastritis, esophagitis, AVM or other possible etiologies. Discussed with patient recommendation is to proceed with EGD and colonoscopy. Patient has no gradients. Patient will be prepped for EGD and colonoscopy for tomorrow. Current Visit: Yes Status: Acute Code(s): D50.9 - IRON DEFICIENCY ANEMIA, UNSPECIFIED SNOMED Code(s): 364071262 (2) CHF (congestive heart failure) Current Visit: Yes Status: Acute Code(s): I50.9 - HEART FAILURE, UNSPECIFIED SNOMED Code(s): 89498986 (3) SVT (supraventricular tachycardia) Current Visit: Yes Status: Acute Code(s): I47.1 - SUPRAVENTRICULAR TACHYCARDIA SNOMED Code(s): 2718819 Plan: 1. Clear liquid diet, nothing by mouth after midnight 2. Agree with PRBC transfusion 3. Repeat CBC daily transfuse for hemoglobin less than 7 4. Begin bowel prep this evening, patient received half of her bowel prep and then again in the morning at 5 AM 5. Protonix 40 mg twice a day Thank you for this consultation, we will continue to follow. Dr. Loki Gann I agree with the dictator's note, documented as a scribe by Lilly Soto.
[2021-05-29 15:50] LABS: Anisocytosis Moderate; HCT 28.9 % (34.0-46.0); HGB 8.2 gm/dL (11.4-16.0); Hypochromasia Marked; MCHC 28.3 g/dL (31.0-37.0); MCV 74.2 fL (80.0-100.0); Mean Platelet Volume 9.7; Microcytosis Marked; Platelet Count 192 k/uL (150-450); Poikilocytosis Marked; RBC 3.89 m/uL (3.80-5.40); RDW 23.6 % (11.5-15.5); WBC 7.7 k/uL (3.8-10.6)
[2021-05-29 16:41] LABS: Glucose,Whole Blood 139 mg/dL (75-99)
--- NOTE | 2021-05-29 17:26 | PN ---
PROGRESS NOTE DATE OF SERVICE: 05/29/2021 This 60-year-old woman was admitted with possible SVT, possible atrial fibrillation with fast ventricular rate. The patient is on Cardizem. The rate is improved significantly at this time. The patient also had anemia. Hemoglobin went down to 6.8. No obvious bleeding was noted. The patient received 3 units transfusion. GI is planning endoscopies. No chest pain. No palpitations. No fever. Creatinine is elevated at 1.6. The patient is closely monitored in the ICU. Past medical history reviewed. REVIEW OF SYSTEMS: CARDIOVASCULAR: As mentioned earlier. RESPIRATORY SYSTEM: As mentioned earlier. GI: As mentioned earlier. NERVOUS SYSTEM: No numbness, weakness. CURRENT MEDICATIONS: Reviewed. They include Tylenol, DuoNeb, Cordarone, Lipitor, Klonopin, diltiazem, Lasix, Xalatan. Doses and other medications also reviewed. PHYSICAL EXAMINATION: Patient alert and oriented x3. Pulse is 68, blood pressure 84/59, respirations 16, temperature 96.8, pulse ox 95% on 2 L. HEENT: Conjunctivae pale. NECK: No jugular venous distention. CARDIOVASCULAR: S1, S2 muffled. RESPIRATION: Breath sounds diminished at the bases. A few scattered rhonchi and crackles. ABDOMEN: Soft, obese, non-tender. LEGS: No edema. No swelling. NERVOUS SYSTEM: Diffusely weak. LABS: WBC 7.6, hemoglobin is 8.2, creatinine is 1.96. ASSESSMENT: 1. Supraventricular tachycardia and atrial fibrillation with fast ventricular rate, present on admission. 2. Anemia, possibly acute on chronic blood-loss anemia. 3. Congestive heart failure, acute exacerbation, with ejection fraction unknown. 4. Acute hypoxic respiratory failure, present on admission, secondary to congestive heart failure. 5. History of chronic atrial fibrillation. 6. History of diabetes mellitus, type 2. 7. History of lymphoma. 8. History of appendectomy. 9. History of anxiety. 10.Remote history of nicotine dependence. 11.History of THC. 12.Anemia, macrocytic. 13.Elevated PT/INR. 14.Hyperkalemia secondary to renal failure. 15.Acute renal failure, present on admission, with acute tubular necrosis. 16.Elevated bilirubin. 17.Increased AST. 18.Troponin 0.378, indeterminate. Acute myocardial infarction unlikely per Cardiology. 19.Hypoalbuminemia with mild protein-calorie malnutrition. RECOMMENDATIONS AND DISCUSSION: I recommend to continue current medications, continue with symptomatic treatment. Repeat labs. Patient has received 2 units transfusion. Gastroenterology consultation. Endoscopies. Otherwise, repeat labs tomorrow. Prognosis is guarded because of multiple complex medical issues. Two-D echo has been recommended. Closely follow with Cardiology and the rest of the consultants. Further recommendations to follow. MMODL / IJN: [id number] /
[2021-05-29 18:12] LABS: % Iron Saturation 3.66 (12.00-45.00); Folate, Serum 5.4 ng/mL (4.40-31.00)
[2021-05-29 18:13] LABS: Ferritin 15.6 ng/mL (10.0-291.0)
[2021-05-29] MEDS: ATORVASTATIN 20 MG TAB PO SCH (19:54)
[2021-05-29 20:13] LABS: Glucose,Whole Blood 197 mg/dL (75-99)
[2021-05-29] MEDS ORDERED: SODIUM CHLORIDE 0.9% 500 ML 250 ML IV ONE (23:55)
[2021-05-29] MEDS ORDERED: MIDODRINE 5 MG TAB PO STA (23:57)
[2021-05-30] MEDS: FUROSEMIDE 10 MG/ML 4 ML VIAL IV SCH ×3 (00:16→12:27)
[2021-05-30] MEDS ORDERED: DILTIAZEM DRIP BOLUS FROM BAG 1 MG SOLN IV ONE (03:56)
--- NOTE | 2021-05-30 04:20 | XR ---
EXAMINATION TYPE: XR chest 1V portable DATE OF EXAM: 05/30/2021 COMPARISON: 05/28/2021 HISTORY: Short of breath TECHNIQUE: FINDINGS: Heart is enlarged. There is pulmonary interstitial edema. There are chest leads. There is p robably small pleural effusions. IMPRESSION: Congestive heart failure with increased pulmonary congestion compared to recent exam.
[2021-05-30 06:16] LABS: Glucose,Whole Blood 111 mg/dL (75-99)
[2021-05-30] MEDS: carvediloL 6.25 MG TAB PO SCH ×2 (06:52→16:39)
[2021-05-30 08:10] LABS: Anisocytosis Marked; HCT 28.3 % (34.0-46.0); HGB 7.6 gm/dL (11.4-16.0); Hypochromasia Marked; MCH 20.4 pg (25.0-35.0); MCHC 26.9 g/dL (31.0-37.0); MCV 75.9 fL (80.0-100.0); Mean Platelet Volume 7.9; Microcytosis Marked; Platelet Count 154 k/uL (150-450); Poikilocytosis Marked; RBC 3.73 m/uL (3.80-5.40); RDW 24.3 % (11.5-15.5); WBC 6.1 k/uL (3.8-10.6)
[2021-05-30 08:19] LABS: INR 1.6 (<1.2); Prothrombin Time 15.8 sec (9.0-12.0)
[2021-05-30 08:26] LABS: Albumin 2.9 g/dL (3.5-5.0); Calcium 8.4 mg/dL (8.4-10.2); Potassium 4.5 mmol/L (3.5-5.1); Total Bilirubin 1.4 mg/dL (0.2-1.3); Total Protein 6.6 g/dL (6.3-8.2)
[2021-05-30] MEDS: AMIODARONE 200 MG TAB PO SCH (08:37)
[2021-05-30] MEDS: PANTOPRAZOLE 40 MG/10 ML VIAL IVP SCH ×2 (08:37→20:31)
[2021-05-30] MEDS: DORZOLAMIDE-TIMOLOL 2.23%/0.68 10ML BTL BOTH EYES SCH ×2 (08:37→20:32)
[2021-05-30] MEDS: IPRATROPIUM-ALBUTEROL 3 ML NEB INHALATION SCH ×3 (08:57→19:46)
[2021-05-30 11:39] LABS: Glucose,Whole Blood 120 mg/dL (75-99)
--- NOTE | 2021-05-30 11:47 | P.PN ---
Subjective Progress Note Date: 05/30/21 Principal diagnosis: SVT, GI bleed 60-year-old female patient of Dr. Lei with history of chronic atrial fibrillation, and patient is on Zaroxolyn for anticoagulation. Other medical history is taken for diabetes mellitus type 2, previous history of lymphoma in 2000, anxiety, former smoker, and hyperlipidemia. Patient presented to the emergency department by EMS for evaluation of increased shortness of breath, and severe weakness. Patient states that about a month and a half ago she had a fall, reports having some melanotic stools at home. She noticed increased shortness of breath especially with exertion. Denied any fever or chills, denied any episodes of chest pain. She states today she went to the bathroom and she was too weak to get up. She spent 3 hours just sitting on the toilet and then she had to alert her to call the ambulance. In the emergency department patient's hemoglobin was 5.8, platelet count was 233, white count was within normal limits at 6.8, INR was 1.9, potassium was 5.4, CO2 is 19, BUN is 21, creatinine is 1.8, lactic acid was 3.4, troponin was 0.354, and proBNP was 12,000. She was checked for COVID-19 and was found to be negative. Patient was also in SVT with a rate of 165, she was started on Cardizem infusion, she had subsequent converted to sinus rhythm. Cardizem drip has been discontinued, her Xarelto is currently on hold, patient will be transfused with 2 units of packed red blood cells. No complaints of abdominal pain, she is mildly short of breath with conversation but appears to be in no acute distress, she is on 2 L of oxygen her pulse ox is 100%, no fever or chills, she was seen in consultation by cardiology, who restarted her Coreg, patient received a dose of Kcentra to reverse anticoagulation. Chest x-ray revealed cardiomegaly with diffuse interstitial pattern possibly related to CHF versus interstitial pneumonia. Pneumonia since been less likely, patient received a dose of Lasix, she also has increased swelling in her bilateral lower extremities. She is currently awaiting a bed in the intensive care unit. On today's evaluation on 05/29/2021 patient seen in follow-up in the intensive care unit, she is awake and alert, in no acute distress, she is currently on 2 L of oxygen pulse ox is 96%, she is afebrile, she had another episode of SVT during the night, Cardizem drip was started, and the episode was self-limiting, patient is back in sinus mechanism with a rate of 71 BPM, blood pressure is 92/52, patient is not on any vasopressor support, she states she is feeling better today. No breathing difficulty. No cough, no chest pain, today's hemoglobin is 6.8, and patient will receive another unit of packed red blood cells, for a total of 3 units during this admission. No recurrence of melanotic stools since admission. GI service evaluation is pending. Remains nothing by fanta. Patient is on PPI therapy, Lasix 40 mg every 8 hours has been started, for acute exacerbation of CHF. Otherwise no other events overnight, and patient is stable for transfer out of intensive care unit to regular 3 S. bed. The patient is seen today 05/30/2021 in follow-up on the selective care unit. She is currently resting comfortably in bed. Awake and alert in no acute distress. Maintaining good O2 saturations in the upper 90s on 2 L/m per nasal cannula. White count 6.1. Hemoglobin 7.6. Platelets 154. INR 1.6. Sodium 137. Potassium 4.5. Creatinine 2.07. Glucose 112. She remains on DuoNeb inhalations, IV diuretics, anti-arrhythmics. Plan is for EGD/colonoscopy today Objective - Vital Signs Vital signs: Vital Signs Temp 98.0 F 05/30/21 08:00 Pulse 78 05/30/21 09:08 Resp 20 05/30/21 08:00 BP 107/74 05/30/21 08:00 Pulse Ox 99 05/30/21 08:00 Intake & Output 05/29/21 05/30/21 05/30/21 18:59 06:59 18:59 Intake Total 310 4.25 540 Output Total 0 3 Balance 310 1.25 540 Intake: Intake, IV Titration 4.25 Amount Diltiazem 125 mg In 4.25 Sodium Chloride 0.9% 100 ml @ 5 MG/HR 5 mls/hr IV .Q24H [facility] Rx#:[id number] Oral 540 Blood Product 310 Rc As-1 Unit 310 [id number] Output: Urine 0 Urine/Stool Mix 3 Other: Voiding Method Diaper Diaper Diaper # Voids 1 # Bowel Movements 1 - Exam GENERAL EXAM: Alert, very pleasant, 60-year-old obese -Armenian female, on 2 L of oxygen with pulse ox in the 99%, comfortable in no apparent distress. HEAD: Normocephalic/atraumatic. EYES: Normal reaction of pupils, equal size. Conjunctiva pink, sclera white. NOSE: Clear with pink turbinates. THROAT: No erythema or exudates. NECK: No masses, no JVD, no thyroid enlargement, no adenopathy. CHEST: No chest wall deformity. Symmetrical expansion. LUNGS: Equal air entry with crackles in the bilateral bases CVS: Regular rate and rhythm, normal S1 and S2, no gallops, no murmurs, no rubs ABDOMEN: Soft, nontender. No hepatosplenomegaly, normal bowel sounds, no guarding or rigidity. EXTREMITIES: No clubbing, 1+ lower extremity edema no cyanosis, 2+ pulses and upper and lower extremities. MUSCULOSKELETAL: Muscle strength and tone normal. SPINE: No scoliosis or deformity SKIN: No rashes, patient has thickened skin on bilateral lower extremities CENTRAL NERVOUS SYSTEM: No focal deficits, tone is normal in all 4 extremities. PSYCHIATRIC: Alert and oriented -3. Appropriate affect. Intact judgment and insight. - Labs CBC & Chem 7: 05/30/21 07:45 05/30/21 07:50 Labs: Abnormal Lab Results - Last 24 Hours (Table) 05/28/21 05/28/21 05/29/21 Range/Units 10:05 14:00 15:35 RBC (3.80-5.40) m/uL Hgb 8.2 L (11.4-16.0) gm/dL Hct 28.9 L (34.0-46.0) % MCV 74.2 L (80.0-100.0) fL MCH 21.0 L (25.0-35.0) pg MCHC 28.3 L (31.0-37.0) g/dL RDW 23.6 H (11.5-15.5) % PT (9.0-12.0) sec INR (<1.2) BUN (7-17) mg/dL Creatinine (0.52-1.04) mg/dL Glucose (74-99) mg/dL POC Glucose (mg/dL) (75-99) mg/dL Iron 13 L (50-170) ug/dL % Saturation 3.66 L (12.00-45.00) Total Bilirubin (0.2-1.3) mg/dL AST (14-36) U/L Albumin (3.5-5.0) g/dL Crossmatch See Detail 05/29/21 05/29/21 05/30/21 Range/Units 16:39 20:11 06:14 RBC (3.80-5.40) m/uL Hgb (11.4-16.0) gm/dL Hct (34.0-46.0) % MCV (80.0-100.0) fL MCH (25.0-35.0) pg MCHC (31.0-37.0) g/dL RDW (11.5-15.5) % PT (9.0-12.0) sec INR (<1.2) BUN (7-17) mg/dL Creatinine (0.52-1.04) mg/dL Glucose (74-99) mg/dL POC Glucose (mg/dL) 139 H 197 H 111 H (75-99) mg/dL Iron (50-170) ug/dL % Saturation (12.00-45.00) Total Bilirubin (0.2-1.3) mg/dL AST (14-36) U/L Albumin (3.5-5.0) g/dL Crossmatch 05/30/21 05/30/21 05/30/21 Range/Units 07:45 07:50 07:50 RBC 3.73 L (3.80-5.40) m/uL Hgb 7.6 L (11.4-16.0) gm/dL Hct 28.3 L (34.0-46.0) % MCV 75.9 L (80.0-100.0) fL MCH 20.4 L (25.0-35.0) pg MCHC 26.9 L (31.0-37.0) g/dL RDW 24.3 H (11.5-15.5) % PT 15.8 H (9.0-12.0) sec INR 1.6 H (<1.2) BUN 24 H (7-17) mg/dL Creatinine 2.07 H (0.52-1.04) mg/dL Glucose 112 H (74-99) mg/dL POC Glucose (mg/dL) (75-99) mg/dL Iron (50-170) ug/dL % Saturation (12.00-45.00) Total Bilirubin 1.4 H (0.2-1.3) mg/dL AST 41 H (14-36) U/L Albumin 2.9 L (3.5-5.0) g/dL Crossmatch Microbiology - Last 24 Hours (Table) 05/28/21 10:30 Blood Culture - Preliminary Blood No Growth after 24 hours 05/28/21 10:15 Blood Culture - Preliminary Blood No Growth after 24 hours Assessment and Plan Assessment: 1 Acute hypoxic respiratory failure related to acute exacerbation of CHF, with unknown ejection fraction 2 Dyspnea, related to acute blood loss anemia, patient presented with a hemoglobin of 5.8, with reports of melanotic stools, status post 3 units of packed red blood cells this admission. Current hemoglobin 7.6. 3 Chronic atrial fibrillation on Xarelto, currently on hold, patient was given a dose of Kcentra 4 Former smoker, in remission 6 Suspect underlying history of COPD 7 Acute kidney injury 8 Troponin leak, possibly related to hypoxia, profound anemia, oxygen supply demand mismatch. Cardiology is following 9 Lactic acidosis, mild, improved, not related to sepsis, but cultures are pending 10 Diabetes mellitus type 2 11 Morbid obesity, BMI 64 kg per metered square 12 Hypertension 13 Hyperlipidemia 14 Episode of SVT, or A. fib with RVR, currently back in sinus mechanism Plan: The patient was seen and evaluated by Dr. Mcdaniels Currently stable from the pulmonary and critical care standpoint Chest x-ray revealing continued congestive heart failure Remains on IV diuretics Plan is for EGD/colonoscopy today Titrate the FiO2 as tolerated I, the cosigning physician, performed a history & physical examination of the patient. Lungs sounds with crackles in the bilateral posterior bases. Maintaining good O2 saturations in the 90s on 2 L/m per nasal cannula. I discussed the assessment and plan of care with my nurse practitioner, Charity Conteh. I attest to the above note as dictated by her.
[2021-05-30] MEDS: DILTIAZEM 125 MG in SODIUM CHLORIDE 0.9% 100 ML IV SCH (11:52)
[2021-05-30] MEDS ORDERED: IV FLUID CONTINUATION 200 ML IV ONE (14:01)
--- NOTE | 2021-05-30 14:25 | P.PN ---
Subjective Progress Note Date: 05/30/21 HISTORY OF PRESENT ILLNESS: This is a 60-year-old female with a past medical history significant for chronic atrial fibrillation, hypertension, hyperlipidemia, and COPD. 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 We have been asked to see the patient in consultation for SVT, arrhythmia. Patient examined at the bedside in the emergency room. Patient presented to the hospital secondary to shortness of breath and fatigue. Patient was found to be a-fib with RVR. Patient was placed on a Cardizem drip which is currently infusing at 5 mg an hour. Patient was also found to be anemic with a hemoglobin of 5.8. She takes Xarelto at home. She reports melanotic stools at home. She currently denies chest pain or pressure. EKG reveals A. fib with RVR Chest xray cardiomegaly with diffuse interstitial pattern. Correlate for CHF versus interstitial pneumonia. Laboratory data: WBC 6.8. Hemoglobin 5.8. Platelet count 233. Sodium 138. Potassium 5.4. BUN 21. Creatinine 1.80. Lactic acid 3.4. Repeat 1.7. Troponin 0.354. ProBNP 12,000. Current home cardiac medications include Aldactone 25 mg daily, Lasix 20 mg daily, lisinopril 20 mg daily, Xarelto 20 mg daily, carvedilol 6.25 mg twice a day, Lipitor 20 mg daily, amiodarone 100 mg daily 05/30/2021 Patient examined this morning at the bedside. Patient's hemoglobin is 7.6. She is scheduled for EGD and colonoscopy today per GI service. Her anticoagulation remains on hold. Patient remains in atrial fibrillation. PHYSICAL EXAM: VITAL SIGNS: Reviewed. GENERAL: Well-developed in no acute distress. HEENT: Head is normocephalic. Pupils are equal, round. Sclerae anicteric. Mucous membranes of the mouth are moist. Neck supple. No JVD or thyromegaly LUNGS: Respirations even and unlabored. Lungs diminished to auscultation bilaterally. HEART: Tachycardic. Irregular rate and rhythm. S1 and S2 heard. ABDOMEN: Soft. Nondistended. Nontender. EXTREMITIES: Normal range of motion. No clubbing or cyanosis. Peripheral pulses intact. No lower extremity edema NEUROLOGIC: Awake and alert. Oriented x 3. ASSESSMENT: Acute blood loss anemia Acute GI bleed Abnormal troponin, secondary to above, no evidence of acute coronary syndrome Chronic persistent atrial fibrillation, on anticoagulants with Xarelto Hypertension COPD Hyperlipidemia PLAN: 2D echo ordered. Await results. Hold anticoagulation Patient to undergo EGD and colonoscopy today Further recommendations pending patient course Nurse practitioner note has been reviewed by physician. Signing provider agrees with the documented findings, assessment, and plan of care. Objective - Vital Signs Vital signs: Vital Signs Temp 97.4 F L 05/30/21 11:45 Pulse 75 05/30/21 14:00 Resp 20 05/30/21 14:00 BP 92/62 05/30/21 11:45 Pulse Ox 99 05/30/21 08:00 Intake & Output 05/29/21 05/30/21 05/30/21 18:59 06:59 18:59 Intake Total 310 4.25 540 Output Total 0 3 Balance 310 1.25 540 Intake: Intake, IV Titration 4.25 Amount Diltiazem 125 mg In 4.25 Sodium Chloride 0.9% 100 ml @ 5 MG/HR 5 mls/hr IV .Q24H [facility] Rx#:[id number] Oral 540 Blood Product 310 Rc As-1 Unit 310 [id number] Output: Urine 0 Urine/Stool Mix 3 Other: Voiding Method Diaper Diaper Diaper # Voids 1 # Bowel Movements 1 - Labs CBC & Chem 7: 05/30/21 07:45 05/30/21 07:50 Labs: Abnormal Lab Results - Last 24 Hours (Table) 05/28/21 05/28/21 05/29/21 Range/Units 10:05 14:00 15:35 RBC (3.80-5.40) m/uL Hgb 8.2 L (11.4-16.0) gm/dL Hct 28.9 L (34.0-46.0) % MCV 74.2 L (80.0-100.0) fL MCH 21.0 L (25.0-35.0) pg MCHC 28.3 L (31.0-37.0) g/dL RDW 23.6 H (11.5-15.5) % PT (9.0-12.0) sec INR (<1.2) BUN (7-17) mg/dL Creatinine (0.52-1.04) mg/dL Glucose (74-99) mg/dL POC Glucose (mg/dL) (75-99) mg/dL Iron 13 L (50-170) ug/dL % Saturation 3.66 L (12.00-45.00) Total Bilirubin (0.2-1.3) mg/dL AST (14-36) U/L Albumin (3.5-5.0) g/dL Crossmatch See Detail 05/29/21 05/29/21 05/30/21 Range/Units 16:39 20:11 06:14 RBC (3.80-5.40) m/uL Hgb (11.4-16.0) gm/dL Hct (34.0-46.0) % MCV (80.0-100.0) fL MCH (25.0-35.0) pg MCHC (31.0-37.0) g/dL RDW (11.5-15.5) % PT (9.0-12.0) sec INR (<1.2) BUN (7-17) mg/dL Creatinine (0.52-1.04) mg/dL Glucose (74-99) mg/dL POC Glucose (mg/dL) 139 H 197 H 111 H (75-99) mg/dL Iron (50-170) ug/dL % Saturation (12.00-45.00) Total Bilirubin (0.2-1.3) mg/dL AST (14-36) U/L Albumin (3.5-5.0) g/dL Crossmatch 05/30/21 05/30/21 05/30/21 Range/Units 07:45 07:50 07:50 RBC 3.73 L (3.80-5.40) m/uL Hgb 7.6 L (11.4-16.0) gm/dL Hct 28.3 L (34.0-46.0) % MCV 75.9 L (80.0-100.0) fL MCH 20.4 L (25.0-35.0) pg MCHC 26.9 L (31.0-37.0) g/dL RDW 24.3 H (11.5-15.5) % PT 15.8 H (9.0-12.0) sec INR 1.6 H (<1.2) BUN 24 H (7-17) mg/dL Creatinine 2.07 H (0.52-1.04) mg/dL Glucose 112 H (74-99) mg/dL POC Glucose (mg/dL) (75-99) mg/dL Iron (50-170) ug/dL % Saturation (12.00-45.00) Total Bilirubin 1.4 H (0.2-1.3) mg/dL AST 41 H (14-36) U/L Albumin 2.9 L (3.5-5.0) g/dL Crossmatch 05/30/21 Range/Units 11:38 RBC (3.80-5.40) m/uL Hgb (11.4-16.0) gm/dL Hct (34.0-46.0) % MCV (80.0-100.0) fL MCH (25.0-35.0) pg MCHC (31.0-37.0) g/dL RDW (11.5-15.5) % PT (9.0-12.0) sec INR (<1.2) BUN (7-17) mg/dL Creatinine (0.52-1.04) mg/dL Glucose (74-99) mg/dL POC Glucose (mg/dL) 120 H (75-99) mg/dL Iron (50-170) ug/dL % Saturation (12.00-45.00) Total Bilirubin (0.2-1.3) mg/dL AST (14-36) U/L Albumin (3.5-5.0) g/dL Crossmatch Microbiology - Last 24 Hours (Table) 05/28/21 10:15 Blood Culture - Preliminary Blood No Growth after 48 hours 05/28/21 10:30 Blood Culture - Preliminary Blood No Growth after 48 hours
--- NOTE | 2021-05-30 14:43 | P.PCN ---
Date of Procedure: 05/30/21 Procedure(s) Performed: Brief history: Patient is a pleasant 60-year-old -Thai female admitted hospital with severe symptomatic anemia and hemoglobin of 5.3 g/dL requiring 2 units of PRBC transfusion. She is scheduled for an upper endoscopy as well as colonoscopy to evaluate further. Procedure performed: Esophagogastroduodenoscopy with biopsy Colonoscopy with biopsy and snare polypectomy and argon plasma coagulation Preoperative diagnosis: Severe symptomatic anemia and hemoglobin of 5.4 g/dL Anesthesia: MAC Procedure: After informed consent was obtained from the patient was brought into the endoscopy unit and IV sedation was administered by anesthesia under continuous monitoring. Initially upper endoscopy was done. The Olympus GF 160 video endoscope was inserted inserted into the mouth and esophagus intubated without any difficulty and was gradually advanced into the stomach and duodenum and carefully examined. The second part of the duodenum appeared normal. In the bulb of the duodenum there was some duodenitis with small polyps noted which were biopsied. The scope was then withdrawn into the stomach adequately insufflated with air and upon careful examination the antrum had mild gastritis and biopsies were done from this area. The body, cardia and fundus appeared normal. The scope was then withdrawn into the esophagus. The GE junction was located at 40 cm to the incisors. It appeared regular with no erythema erosions or ulcerations. Rest of the esophagus appeared normal. Patient tolerated the procedure well. At this time the patient continued to remain sedation. Initial digital rectal examination was normal. Olympus CF 160 video colonoscope was then inserted into the rectum and gradually advanced to the cecum without any difficulty. Careful examination was performed as the scope was gradually being withdrawn. The prep was excellent. In the base of cecum there were 3 small nonbleeding arterial venous malformation 70 coagulated using argon plasma. In the distal rectum there were 2 polyps measuring 5 mm in size which were removed by snare polypectomy. The cecum, ascending colon, transverse colon, descending colon, sigmoid colon and rectum appeared normal. Retroflexion was performed in the rectum and no lesions were noted. Patient tolerated the procedure well. Impression: 1. Upper endoscopy revealed mild antral gastritis and duodenitis but no evidence of peptic ulcer disease 2. 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 She was advised to follow with the biopsy results. Diet will be advanced as tolerated. Anticoagulation can be resumed in 3 days.
[2021-05-30 16:49] LABS: Glucose,Whole Blood 114 mg/dL (75-99)
[2021-05-30 20:21] LABS: Glucose,Whole Blood 126 mg/dL (75-99)
[2021-05-30] MEDS: LATANOPROST 0.005% OPHTH DROPS 2.5 ML BTL BOTH EYES SCH (20:32)
[2021-05-30] MEDS: ATORVASTATIN 20 MG TAB PO SCH (20:32)
[2021-05-31] MEDS: FUROSEMIDE 10 MG/ML 4 ML VIAL IV SCH (00:39)
[2021-05-31 06:40] LABS: Glucose,Whole Blood 137 mg/dL (75-99)
[2021-05-31] MEDS: carvediloL 6.25 MG TAB PO SCH ×3 (06:49→18:37)
[2021-05-31] MEDS: IPRATROPIUM-ALBUTEROL 3 ML NEB INHALATION SCH ×3 (08:47→20:11)
[2021-05-31] MEDS ORDERED: FUROSEMIDE 10 MG/ML 4 ML VIAL IV SCH (09:00)
[2021-05-31] MEDS: PANTOPRAZOLE 40 MG/10 ML VIAL IVP SCH ×2 (09:16→21:12)
[2021-05-31] MEDS: AMIODARONE 200 MG TAB PO SCH (09:16)
[2021-05-31] MEDS: DORZOLAMIDE-TIMOLOL 2.23%/0.68 10ML BTL BOTH EYES SCH ×2 (09:16→22:29)
--- NOTE | 2021-05-31 09:29 | P.PN ---
Subjective Progress Note Date: 05/31/21 HISTORY OF PRESENT ILLNESS: This is a 60-year-old female with a past medical history significant for chronic atrial fibrillation, hypertension, hyperlipidemia, and COPD. 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 We have been asked to see the patient in consultation for SVT, arrhythmia. Patient examined at the bedside in the emergency room. Patient presented to the hospital secondary to shortness of breath and fatigue. Patient was found to be a-fib with RVR. Patient was placed on a Cardizem drip which is currently infusing at 5 mg an hour. Patient was also found to be anemic with a hemoglobin of 5.8. She takes Xarelto at home. She reports melanotic stools at home. She currently denies chest pain or pressure. EKG reveals A. fib with RVR Chest xray cardiomegaly with diffuse interstitial pattern. Correlate for CHF versus interstitial pneumonia. Laboratory data: WBC 6.8. Hemoglobin 5.8. Platelet count 233. Sodium 138. Potassium 5.4. BUN 21. Creatinine 1.80. Lactic acid 3.4. Repeat 1.7. Troponin 0.354. ProBNP 12,000. Current home cardiac medications include Aldactone 25 mg daily, Lasix 20 mg daily, lisinopril 20 mg daily, Xarelto 20 mg daily, carvedilol 6.25 mg twice a day, Lipitor 20 mg daily, amiodarone 100 mg daily 05/30/2021 Patient examined this morning at the bedside. Patient's hemoglobin is 7.6. She is scheduled for EGD and colonoscopy today per GI service. Her anticoagulation remains on hold. Patient remains in atrial fibrillation. 05/31/2021 Patient examined this for the bedside. Patient is somewhat lethargic this morning. She denies chest pain or pressure. She denies shortness of breath. She underwent EGD and colonoscopy yesterday revealing gastritis and duodenitis with no evidence of peptic ulcer disease. Colonoscopy revealed 3 small nonbleeding cecal AVMs. Per GI service, anticoagulation can be resumed in 3 days. Blood pressure this morning 106/72. Echocardiogram reveals ejection fraction 50-55%, moderate aortic stenosis, and moderate mitral regurgitation. PHYSICAL EXAM: VITAL SIGNS: Reviewed. GENERAL: Well-developed in no acute distress. HEENT: Head is normocephalic. Pupils are equal, round. Sclerae anicteric. Mucous membranes of the mouth are moist. Neck supple. No JVD or thyromegaly LUNGS: Respirations even and unlabored. Lungs diminished to auscultation bilaterally. HEART: Irregular rate and rhythm. S1 and S2 heard. ABDOMEN: Soft. Nondistended. Nontender. EXTREMITIES: Normal range of motion. No clubbing or cyanosis. Peripheral pulses intact. 1+ bilateral lower extremity edema NEUROLOGIC: Awake and alert. Oriented x 3. ASSESSMENT: Acute blood loss anemia Acute GI bleed, status post EGD and colonoscopy Abnormal troponin, secondary to above, no evidence of acute coronary syndrome Chronic persistent atrial fibrillation, on anticoagulants with Xarelto Hypertension COPD Hyperlipidemia PLAN: Decrease lasix to once daily dosing Continue additional cardiac medication Anticoagulation may be resumed in 3 days per GI service Further recommendations pending patient course Nurse practitioner note has been reviewed by physician. Signing provider agrees with the documented findings, assessment, and plan of care. Objective - Vital Signs Vital signs: Vital Signs Temp 98.0 F 05/31/21 04:00 Pulse 63 05/31/21 08:48 Resp 14 05/31/21 04:00 BP 106/72 05/31/21 06:42 Pulse Ox 97 05/31/21 04:00 Intake & Output 05/30/21 05/31/21 05/31/21 18:59 06:59 18:59 Intake Total 640 Balance 640 Intake: IV 100 Oral 540 Other: Voiding Method Diaper Diaper External Catheter # Voids 0 1 - Labs CBC & Chem 7: 05/30/21 07:45 05/30/21 07:50 Labs: Abnormal Lab Results - Last 24 Hours (Table) 05/30/21 05/30/21 05/30/21 Range/Units 11:38 16:47 20:04 POC Glucose (mg/dL) 120 H 114 H 126 H (75-99) mg/dL 05/31/21 Range/Units 06:17 POC Glucose (mg/dL) 137 H (75-99) mg/dL Microbiology - Last 24 Hours (Table) 05/28/21 10:15 Blood Culture - Preliminary Blood No Growth after 48 hours 05/28/21 10:30 Blood Culture - Preliminary Blood No Growth after 48 hours
--- NOTE | 2021-05-31 09:31 | P.PN ---
Subjective Progress Note Date: 05/30/21 This is a pleasant 60 year old female who was recently admitted for atrial fibrillation with RVR and also found to have extremely low hemoglobin requiring transfusions. 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 Patient was briefly monitored in the ICU and currently on the selective unit with telemetry monitoring. Patient scheduled for EGD/colonoscopy today with Dr. Riggins. Patient continues on IV lasix as well with cardiology following closely. Anticoagulation Xarelto on hold and patient is on cardizem. No reported chest pain. Afebrile. Labs: hgb is 7.6, platelets 154, INR 1.6, sodium is 137, potassium is 4.5, bun is 24, creatinine is 2.07 Review of systems: Unable to obtain as patient is lethargic this morning and falls asleep quickly Active Medications Acetaminophen (Acetaminophen Tab 325 Mg Tab) 650 mg PO Q4HR PRN PRN Reason: Fever and/or Mild Pain Albuterol/Ipratropium (Ipratropium-Albuterol 3 Ml Neb) 3 ml INHALATION RT-TID [facility] Last Admin: 05/31/21 08:47 Dose: 3 ml Documented by: Albuterol/Ipratropium (Ipratropium-Albuterol 3 Ml Neb) 3 ml INHALATION RT-Q2H PRN PRN Reason: Shortness Of Breath Or Wheezing Amiodarone HCl (Amiodarone 200 Mg Tab) 200 mg PO DAILY [facility] Last Admin: 05/30/21 08:37 Dose: 200 mg Documented by: Atorvastatin Calcium (Atorvastatin 20 Mg Tab) 20 mg PO HS [facility] Last Admin: 05/30/21 20:32 Dose: 20 mg Documented by: Carvedilol (Carvedilol 6.25 Mg Tab) 6.25 mg PO AC-BID [facility] Last Admin: 05/30/21 16:39 Dose: 6.25 mg Documented by: Clonazepam (Clonazepam 1 Mg Tab) 1 mg PO BID PRN PRN Reason: Anxiety Dorzolamide/Timolol (Dorzolamide-Timolol 2.23%/0.68 10ml Btl) 1 drops BOTH EYES BID [facility] Last Admin: 05/30/21 20:32 Dose: 1 drops Documented by: Furosemide (Furosemide 10 Mg/Ml 4 Ml Vial) 40 mg IV DAILY [facility] Latanoprost (Latanoprost 0.005% Ophth Drops 2.5 Ml Btl) 1 drops BOTH EYES HS [facility] Last Admin: 05/30/21 20:32 Dose: 1 drops Documented by: Naloxone HCl (Naloxone 0.4 Mg/Ml 1 Ml Vial) 0.2 mg IV Q2M PRN PRN Reason: Opioid Reversal Pantoprazole Sodium (Pantoprazole 40 Mg/10 Ml Vial) 40 mg IVP BID [facility] Last Admin: 05/30/21 20:31 Dose: 40 mg Documented by: Trazodone HCl (Trazodone Hcl 100 Mg Tab) 100 mg PO HS PRN PRN Reason: Insomnia Physical Exam: GENERAL: The patient is alert and oriented x3, although extremely lethargic and falls asleep quickly. morbidly obese. Well developed, well nourished. Temp is 98.0f, pulse is 75, resp 20, blood pressure is 107/74, 02 is 99% on 2L via NC HEENT: Pupils are round and equally reacting to light. EOMI. No scleral icterus. No conjunctival pallor. Normocephalic, atraumatic. No pharyngeal erythema. No thyromegaly. CARDIOVASCULAR: S1 and S2 muffled PULMONARY: Diminished breath sounds bilaterally with some scattered crackles and rhonchi noted. ABDOMEN: Soft, obese, nontender, nondistended, normoactive bowel sounds. No pal pable organomegaly. MUSCULOSKELETAL: No joint swelling or deformity. EXTREMITIES: No cyanosis, clubbing, bilateral lower extremity edema noted NEUROLOGICAL: Gross neurological examination did not reveal any focal deficits. Diffusely weak SKIN: No rashes. no petechiae. Assessment: SVT and atrial fibrillation with RVR, POA anemia, possible acute on chronic blood loss anemia CHF, acute exacerbation, EF unknown Acute hypoxic respiratory failure, present on admission, secondary to CHF History of chronic afib History of DM, type 2 History of lymphoma History of appendectomy History of anxiety Remote history of nicotine dependence HIstory of THC anemia, macrocytic Elevated PT/INR Hyperkalemia secondary to renal failure ARF, present with acute tubular necrosis Elevated bilirubin Increased AST Troponin 0.378, indeterminate. Acute myocardial unlikely per cardiology Hypoalbuminemia with mild protein calorie malnutrition Full code Plan: Recommend to continue current medications, management, and symptomatic treatment. Transfuse if less than 7. Patient is scheduled for EGD and colonoscopy with Dr. riggins today. CXR done today shows CHf with increased pulmonary vascular congestion and patient is maintained on IV lasix. Will await GI report and continue to monitor closely. REpeat am labs. 2D echo ordered. Cardiology following closely. Due to multiple complex medical issues, prognosis is guarded. Objective - Vital Signs Vital signs: Vital Signs Temp 98.0 F 05/30/21 08:00 Pulse 78 05/30/21 09:08 Resp 20 05/30/21 08:00 BP 107/74 05/30/21 08:00 Pulse Ox 99 05/30/21 08:00 Intake & Output 05/29/21 05/30/21 05/30/21 18:59 06:59 18:59 Intake Total 310 4.25 540 Output Total 0 3 Balance 310 1.25 540 Intake: Intake, IV Titration 4.25 Amount Diltiazem 125 mg In 4.25 Sodium Chloride 0.9% 100 ml @ 5 MG/HR 5 mls/hr IV .Q24H [facility] Rx#:[id number] Oral 540 Blood Product 310 Rc As-1 Unit 310 [id number] Output: Urine 0 Urine/Stool Mix 3 Other: Voiding Method Diaper Diaper Diaper # Voids 1 # Bowel Movements 1 - Labs CBC & Chem 7: 05/30/21 07:45 05/30/21 07:50 Labs: Abnormal Lab Results - Last 24 Hours (Table) 05/28/21 05/28/21 05/29/21 Range/Units 10:05 14:00 15:35 RBC (3.80-5.40) m/uL Hgb 8.2 L (11.4-16.0) gm/dL Hct 28.9 L (34.0-46.0) % MCV 74.2 L (80.0-100.0) fL MCH 21.0 L (25.0-35.0) pg MCHC 28.3 L (31.0-37.0) g/dL RDW 23.6 H (11.5-15.5) % PT (9.0-12.0) sec INR (<1.2) BUN (7-17) mg/dL Creatinine (0.52-1.04) mg/dL Glucose (74-99) mg/dL POC Glucose (mg/dL) (75-99) mg/dL Iron 13 L (50-170) ug/dL % Saturation 3.66 L (12.00-45.00) Total Bilirubin (0.2-1.3) mg/dL AST (14-36) U/L Albumin (3.5-5.0) g/dL Crossmatch See Detail 05/29/21 05/29/21 05/30/21 Range/Units 16:39 20:11 06:14 RBC (3.80-5.40) m/uL Hgb (11.4-16.0) gm/dL Hct (34.0-46.0) % MCV (80.0-100.0) fL MCH (25.0-35.0) pg MCHC (31.0-37.0) g/dL RDW (11.5-15.5) % PT (9.0-12.0) sec INR (<1.2) BUN (7-17) mg/dL Creatinine (0.52-1.04) mg/dL Glucose (74-99) mg/dL POC Glucose (mg/dL) 139 H 197 H 111 H (75-99) mg/dL Iron (50-170) ug/dL % Saturation (12.00-45.00) Total Bilirubin (0.2-1.3) mg/dL AST (14-36) U/L Albumin (3.5-5.0) g/dL Crossmatch 05/30/21 05/30/21 05/30/21 Range/Units 07:45 07:50 07:50 RBC 3.73 L (3.80-5.40) m/uL Hgb 7.6 L (11.4-16.0) gm/dL Hct 28.3 L (34.0-46.0) % MCV 75.9 L (80.0-100.0) fL MCH 20.4 L (25.0-35.0) pg MCHC 26.9 L (31.0-37.0) g/dL RDW 24.3 H (11.5-15.5) % PT 15.8 H (9.0-12.0) sec INR 1.6 H (<1.2) BUN 24 H (7-17) mg/dL Creatinine 2.07 H (0.52-1.04) mg/dL Glucose 112 H (74-99) mg/dL POC Glucose (mg/dL) (75-99) mg/dL Iron (50-170) ug/dL % Saturation (12.00-45.00) Total Bilirubin 1.4 H (0.2-1.3) mg/dL AST 41 H (14-36) U/L Albumin 2.9 L (3.5-5.0) g/dL Crossmatch Microbiology - Last 24 Hours (Table) 05/28/21 10:30 Blood Culture - Preliminary Blood No Growth after 24 hours 05/28/21 10:15 Blood Culture - Preliminary Blood No Growth after 24 hours
[2021-05-31 12:15] LABS: Glucose,Whole Blood 126 mg/dL (75-99)
[2021-05-31 12:25] LABS: Calcium 8.5 mg/dL (8.4-10.2); Potassium 4.5 mmol/L (3.5-5.1)
[2021-05-31 12:45] LABS: Anisocytosis Marked; HCT 29.1 % (34.0-46.0); HGB 7.7 gm/dL (11.4-16.0); Hypochromasia Marked; MCH 20.2 pg (25.0-35.0); MCHC 26.5 g/dL (31.0-37.0); MCV 76.4 fL (80.0-100.0); Mean Platelet Volume 7.2; Microcytosis Marked; Platelet Count 113 k/uL (150-450); Poikilocytosis Marked; RBC 3.81 m/uL (3.80-5.40); RDW 24.7 % (11.5-15.5)
[2021-05-31 13:12] LABS: Neutrophils % (M) 87 %; Nucleated Red Blood Cells 1 /100 WBC (0-0); Total Cells Counted 200
[2021-05-31 13:13] LABS: Lymphocytes # (M) 0.53 k/uL (1.0-4.8); Neutrophils # (M) 5.74 k/uL (1.3-7.7); WBC 6.6 k/uL (3.8-10.6)
[2021-05-31 13:15] LABS: RBC Fragments Present; Target Cells Present
--- NOTE | 2021-05-31 14:01 | P.PN ---
Subjective Progress Note Date: 05/31/21 Principal diagnosis: SVT, GI bleed 60-year-old female patient of Dr. Lei with history of chronic atrial fibrillation, and patient is on Zaroxolyn for anticoagulation. Other medical history is taken for diabetes mellitus type 2, previous history of lymphoma in 2000, anxiety, former smoker, and hyperlipidemia. Patient presented to the emergency department by EMS for evaluation of increased shortness of breath, and severe weakness. Patient states that about a month and a half ago she had a fall, reports having some melanotic stools at home. She noticed increased shortness of breath especially with exertion. Denied any fever or chills, denied any episodes of chest pain. She states today she went to the bathroom and she was too weak to get up. She spent 3 hours just sitting on the toilet and then she had to alert her to call the ambulance. In the emergency department patient's hemoglobin was 5.8, platelet count was 233, white count was within normal limits at 6.8, INR was 1.9, potassium was 5.4, CO2 is 19, BUN is 21, creatinine is 1.8, lactic acid was 3.4, troponin was 0.354, and proBNP was 12,000. She was checked for COVID-19 and was found to be negative. Patient was also in SVT with a rate of 165, she was started on Cardizem infusion, she had subsequent converted to sinus rhythm. Cardizem drip has been discontinued, her Xarelto is currently on hold, patient will be transfused with 2 units of packed red blood cells. No complaints of abdominal pain, she is mildly short of breath with conversation but appears to be in no acute distress, she is on 2 L of oxygen her pulse ox is 100%, no fever or chills, she was seen in consultation by cardiology, who restarted her Coreg, patient received a dose of Kcentra to reverse anticoagulation. Chest x-ray revealed cardiomegaly with diffuse interstitial pattern possibly related to CHF versus interstitial pneumonia. Pneumonia since been less likely, patient received a dose of Lasix, she also has increased swelling in her bilateral lower extremities. She is currently awaiting a bed in the intensive care unit. On today's evaluation on 05/29/2021 patient seen in follow-up in the intensive care unit, she is awake and alert, in no acute distress, she is currently on 2 L of oxygen pulse ox is 96%, she is afebrile, she had another episode of SVT during the night, Cardizem drip was started, and the episode was self-limiting, patient is back in sinus mechanism with a rate of 71 BPM, blood pressure is 92/52, patient is not on any vasopressor support, she states she is feeling better today. No breathing difficulty. No cough, no chest pain, today's hemoglobin is 6.8, and patient will receive another unit of packed red blood cells, for a total of 3 units during this admission. No recurrence of melanotic stools since admission. GI service evaluation is pending. Remains nothing by [facility]. Patient is on PPI therapy, Lasix 40 mg every 8 hours has been started, for acute exacerbation of CHF. Otherwise no other events overnight, and patient is stable for transfer out of intensive care unit to regular 3 S. bed. The patient is seen today 05/30/2021 in follow-up on the selective care unit. She is currently resting comfortably in bed. Awake and alert in no acute distress. Maintaining good O2 saturations in the upper 90s on 2 L/m per nasal cannula. White count 6.1. Hemoglobin 7.6. Platelets 154. INR 1.6. Sodium 137. Potassium 4.5. Creatinine 2.07. Glucose 112. She remains on DuoNeb inhalations, IV diuretics, anti-arrhythmics. Plan is for EGD/colonoscopy today. The patient is seen today 05/31/2021 in follow-up on the selective care unit. She is currently resting comfortably in bed. Awake and alert in no acute distress. Maintaining O2 saturations in the 90son 2 L/m per nasal cannula. She did undergo EGD yesterday and was found to have mild antral gastritis and duodenitis but no evidence of peptic ulcer disease. Colonoscopy revealed 3 small nonbleeding cecal AVMs status post argon plasma coagulation, 1 cm x 2 cm rectal polyp status post snare polypectomy. She is status post 3 units packed red blood cells this admission. Hemoglobin 7.7. White count 6.6. Platelets 113. Sodium 136. Potassium 4.5. Creatinine 2.52. Glucose 126. She remains on IV Protonix 40 mg twice a day. Objective - Vital Signs Vital signs: Vital Signs Temp 98.0 F 05/31/21 04:00 Pulse 65 05/31/21 12:05 Resp 14 05/31/21 04:00 BP 106/72 05/31/21 06:42 Pulse Ox 97 05/31/21 04:00 Intake & Output 05/30/21 05/31/21 05/31/21 18:59 06:59 18:59 Intake Total 640 Balance 640 Intake: IV 100 Oral 540 Other: Voiding Method Diaper Diaper External Catheter # Voids 0 1 - Exam GENERAL EXAM: Alert, very pleasant, 60-year-old morbidly obese -[place] female, on 2 L of oxygen, comfortable in no apparent distress. HEAD: Normocephalic/atraumatic. EYES: Normal reaction of pupils, equal size. Conjunctiva pink, sclera white. NOSE: Clear with pink turbinates. THROAT: No erythema or exudates. NECK: No masses, no JVD, no thyroid enlargement, no adenopathy. CHEST: No chest wall deformity. Symmetrical expansion. LUNGS: Equal air entry with crackles in the bilateral bases CVS: Regular rate and rhythm, normal S1 and S2, no gallops, no murmurs, no rubs ABDOMEN: Soft, nontender. No hepatosplenomegaly, normal bowel sounds, no guarding or rigidity. EXTREMITIES: No clubbing, 1+ lower extremity edema no cyanosis, 2+ pulses and upper and lower extremities. MUSCULOSKELETAL: Muscle strength and tone normal. SPINE: No scoliosis or deformity SKIN: No rashes, patient has thickened skin on bilateral lower extremities CENTRAL NERVOUS SYSTEM: No focal deficits, tone is normal in all 4 extremities. PSYCHIATRIC: Alert and oriented -3. Appropriate affect. Intact judgment and insight. - Labs CBC & Chem 7: 05/31/21 11:47 05/31/21 11:47 Labs: Abnormal Lab Results - Last 24 Hours (Table) 05/30/21 05/30/21 05/31/21 Range/Units 16:47 20:04 06:17 Hgb (11.4-16.0) gm/dL Hct (34.0-46.0) % MCV (80.0-100.0) fL MCH (25.0-35.0) pg MCHC (31.0-37.0) g/dL RDW (11.5-15.5) % Plt Count (150-450) k/uL Lymphocytes # (Manual) (1.0-4.8) k/uL Nucleated RBCs (0-0) /100 WBC Sodium (137-145) mmol/L BUN (7-17) mg/dL Creatinine (0.52-1.04) mg/dL Glucose (74-99) mg/dL POC Glucose (mg/dL) 114 H 126 H 137 H (75-99) mg/dL 05/31/21 05/31/21 05/31/21 Range/Units 11:47 11:47 12:14 Hgb 7.7 L (11.4-16.0) gm/dL Hct 29.1 L (34.0-46.0) % MCV 76.4 L (80.0-100.0) fL MCH 20.2 L (25.0-35.0) pg MCHC 26.5 L (31.0-37.0) g/dL RDW 24.7 H (11.5-15.5) % Plt Count 113 L (150-450) k/uL Lymphocytes # (Manual) 0.53 L (1.0-4.8) k/uL Nucleated RBCs 1 H (0-0) /100 WBC Sodium 136 L (137-145) mmol/L BUN 26 H (7-17) mg/dL Creatinine 2.52 H (0.52-1.04) mg/dL Glucose 126 H (74-99) mg/dL POC Glucose (mg/dL) 126 H (75-99) mg/dL Microbiology - Last 24 Hours (Table) 05/28/21 10:30 Blood Culture - Preliminary Blood No Growth after 72 hours 05/28/21 10:15 Blood Culture - Preliminary Blood No Growth after 72 hours Assessment and Plan Assessment: 1 Acute hypoxic respiratory failure related to acute exacerbation of CHF, with unknown ejection fraction 2 Acute blood loss anemia, patient presented with a hemoglobin of 5.8, with reports of melanotic stools, status post 3 units of packed red blood cells this admission. Current hemoglobin 7.7. She did undergo EGD 05/30/2021 and was found to have mild antral gastritis and duodenitis but no evidence of peptic ulcer disease. Colonoscopy revealed 3 small nonbleeding cecal AVMs status post argon plasma coagulation, 1 cm x 2 cm rectal polyp status post snare polypectomy. 3 Chronic atrial fibrillation on Xarelto, currently on hold, patient was given a dose of Kcentra 4 Former smoker, in remission 6 Suspect underlying history of COPD 7 Acute kidney injury 8 Troponin leak, possibly related to hypoxia, profound anemia, oxygen supply demand mismatch. Cardiology is following 9 Lactic acidosis, mild, improved, not related to sepsis, but cultures are pending 10 Diabetes mellitus type 2 11 Morbid obesity, BMI 64 kg per metered square 12 Hypertension 13 Hyperlipidemia 14 Episode of SVT, or A. fib with RVR, currently back in sinus mechanism Plan: The patient was seen and evaluated by Dr. Mcdaniels Currently stable from the pulmonary standpoint Titrate the FiO2 as tolerated EGD/colonoscopy performed yesterday Titrate the FiO2 as tolerated I, the cosigning physician, performed a history & physical examination of the patient. Lungs sounds with crackles in the bilateral posterior bases. Maintaining good O2 saturations in the 90s on 2 L/m per nasal cannula. I discussed the assessment and plan of care with my nurse practitioner, Charity Conteh. I attest to the above note as dictated by her.
[2021-05-31 16:39] LABS: Glucose,Whole Blood 109 mg/dL (75-99)
[2021-05-31] MEDS: FUROSEMIDE 20 MG TAB PO SCH (18:38)
[2021-05-31 20:23] LABS: Glucose,Whole Blood 119 mg/dL (75-99)
[2021-05-31] MEDS: ATORVASTATIN 20 MG TAB PO SCH (21:12)
--- NOTE | 2021-05-31 21:55 | PN ---
PROGRESS NOTE DATE OF SERVICE: 05/31/2021 This 60-year-old woman who was admitted with atrial fibrillation with rapid ventricular rate was found to have extremely low hemoglobin. The patient had EGD and colonoscopy. EGD showed gastritis and duodenitis, and colonoscopy showed some cecal AVMs, not bleeding, which were cauterized. No chest pain. No palpitations. No fever. PHYSICAL EXAMINATION: Alert and oriented x3. Pulse 71, blood pressure 109/56, respiration 18, temperature 96.9, pulse ox 94% on room air. HEENT: Conjunctivae normal. NECK: No jugular venous distention. CARDIOVASCULAR: S1, S2 muffled. RESPIRATION: Breath sounds diminished at the bases. ABDOMEN: Soft, nontender. No mass palpable. LEGS: No edema. No swelling. NERVOUS SYSTEM: No focal deficit. LABS: WBC 6.6, hemoglobin 7.7, creatinine is 2.52. ASSESSMENT: 1. Atrial ablation with fast ventricular rate, present on admission. 2. Possible supraventricular tachycardia, present on admission. 3. Anemia, acute on chronic blood-loss anemia with gastrointestinal blood loss from cecal AVM. 4. Status post EGD and colonoscopy, EGD showing duodenitis and gastritis. 5. Congestive heart failure, acute exacerbation. Ejection fraction unknown. 6. Acute hypoxic respiratory failure, present on admission, secondary to congestive heart failure. 7. History of chronic atrial fibrillation. 8. History of diabetes mellitus, type 2. 9. History of lymphoma. 10.History of appendectomy. 11.History of anxiety. 12.Remote history of nicotine dependence. 13.History of THC. 14.Anemia, macrocytic. 15.Elevated PT/INR. 16.Hypokalemia secondary to renal failure. 17.ARF present with acute tubular necrosis. 18.Elevated bilirubin. 19.Increased AST. 20.Troponin 0.378, indeterminate. Acute myocardial infarction unlikely per Cardiology. 21.Hypoalbuminemia with mild protein-calorie malnutrition. 22.FULL CODE. RECOMMENDATIONS AND DISCUSSION: I recommend to continue current medications, continue with symptomatic treatment. Otherwise at this time repeat hemoglobin. Repeat CBC. Closely follow with multiple consultants. Creatinine is still elevated. Further recommendations to follow. MMODL / IJN: [id number] /
[2021-05-31] MEDS: LATANOPROST 0.005% OPHTH DROPS 2.5 ML BTL BOTH EYES SCH (22:37)
[2021-06-01 06:07] LABS: Glucose,Whole Blood 105 mg/dL (75-99)
[2021-06-01] MEDS: carvediloL 6.25 MG TAB PO SCH (06:28)
[2021-06-01] MEDS: IPRATROPIUM-ALBUTEROL 3 ML NEB INHALATION SCH ×3 (07:57→19:14)
[2021-06-01 08:45] LABS: Calcium 8.5 mg/dL (8.4-10.2)
[2021-06-01 08:54] LABS: Potassium 4.5 mmol/L (3.5-5.1)
[2021-06-01 09:14] LABS: Anisocytosis Marked; HCT 27.9 % (34.0-46.0); HGB 7.4 gm/dL (11.4-16.0); Hypochromasia Marked; MCH 20.3 pg (25.0-35.0); MCHC 26.5 g/dL (31.0-37.0); MCV 76.5 fL (80.0-100.0); Microcytosis Marked; Poikilocytosis Marked; RBC 3.64 m/uL (3.80-5.40)
[2021-06-01 09:16] LABS: RDW 25.3 % (11.5-15.5)
[2021-06-01 10:19] LABS: Platelet Count 84 k/uL (150-450)
[2021-06-01 10:23] LABS: Basophils # (M) 0.12 k/uL (0-0.2); Eosinophils # (M) 0.06 k/uL (0-0.7); Lymphocytes # (M) 0.87 k/uL (1.0-4.8); Monocytes # (M) 0.46 k/uL (0-1.0); Neutrophils # (M) 4.35 k/uL (1.3-7.7); Neutrophils % (M) 75 %; Nucleated Red Blood Cells 1 /100 WBC (0-0); Total Cells Counted 200; WBC 5.8 k/uL (3.8-10.6)
[2021-06-01 10:24] LABS: RBC Fragments Present; Tear Drop Cells Present
--- NOTE | 2021-06-01 10:53 | P.PN ---
Subjective Progress Note Date: 06/01/21 HISTORY OF PRESENT ILLNESS: This is a 60-year-old female with a past medical history significant for chronic atrial fibrillation, hypertension, hyperlipidemia, and COPD. Patient does not follow with a gel coater. We have been asked to see the patient in consultation for SVT, arrhythmia. Patient examined at the bedside in the emergency room. Patient presented to the hospital secondary to shortness of breath and fatigue. Patient was found to be a-fib with RVR. Patient was placed on a Cardizem drip which is currently infusing at 5 mg an hour. Patient was also found to be anemic with a hemoglobin of 5.8. She takes Xarelto at home. She reports melanotic stools at home. She currently denies chest pain or pressure. EKG reveals A. fib with RVR Chest xray cardiomegaly with diffuse interstitial pattern. Correlate for CHF versus interstitial pneumonia. Laboratory data: WBC 6.8. Hemoglobin 5.8. Platelet count 233. Sodium 138. Potassium 5.4. BUN 21. Creatinine 1.80. Lactic acid 3.4. Repeat 1.7. Troponin 0.354. ProBNP 12,000. Current home cardiac medications include Aldactone 25 mg daily, Lasix 20 mg daily, lisinopril 20 mg daily, Xarelto 20 mg daily, carvedilol 6.25 mg twice a day, Lipitor 20 mg daily, amiodarone 100 mg daily 05/30/2021 Patient examined this morning at the bedside. Patient's hemoglobin is 7.6. She is scheduled for EGD and colonoscopy today per GI service. Her anticoagulation remains on hold. Patient remains in atrial fibrillation. 05/31/2021 Patient examined this for the bedside. Patient is somewhat lethargic this morning. She denies chest pain or pressure. She denies shortness of breath. She underwent EGD and colonoscopy yesterday revealing gastritis and duodenitis with no evidence of peptic ulcer disease. Colonoscopy revealed 3 small nonbleeding cecal AVMs. Per GI service, anticoagulation can be resumed in 3 days. Blood pressure this morning 106/72. Echocardiogram reveals ejection fraction 50-55%, moderate aortic stenosis, and moderate mitral regurgitation. 06/01/2021 Patient examined this morning at the bedside. She denies chest pain or pressure. She reports shortness of breath. Hemoglobin 7.4. Patient's creatinine continues to increase. 2.91 today. Patient received her first dose of oral Lasix yesterday. Patient had a few episodes of tachycardia yesterday which resolved spontaneously. PHYSICAL EXAM: VITAL SIGNS: Reviewed. GENERAL: Well-developed in no acute distress. HEENT: Head is normocephalic. Pupils are equal, round. Sclerae anicteric. Mucous membranes of the mouth are moist. Neck supple. No JVD or thyromegaly LUNGS: Respirations even and unlabored. Lungs with expiratory wheezing noted. HEART: Irregular rate and rhythm. S1 and S2 heard. ABDOMEN: Soft. Nondistended. Nontender. EXTREMITIES: Normal range of motion. No clubbing or cyanosis. Peripheral pulses intact. 1+ bilateral lower extremity edema NEUROLOGIC: Awake and alert. Oriented x 3. ASSESSMENT: Acute blood loss anemia Acute GI bleed, status post EGD and colonoscopy Abnormal troponin, secondary to above, no evidence of acute coronary syndrome Chronic persistent atrial fibrillation, on anticoagulation with Xarelto Hypertension COPD Hyperlipidemia PLAN: Dr. Gann would like Coreg decreased to 3.125mg BID. Continue telemetry monitoring. Anticoagulation may be resumed in 3 days from endoscopy per GI service Further recommendations pending patient course Nurse practitioner note has been reviewed by physician. Signing provider agrees with the documented findings, assessment, and plan of care. Objective - Vital Signs Vital signs: Vital Signs Temp 98.2 F 06/01/21 04:00 Pulse 60 06/01/21 08:10 Resp 18 06/01/21 04:00 BP 121/68 06/01/21 04:00 Pulse Ox 100 06/01/21 04:00 Intake & Output 05/31/21 06/01/21 06/01/21 18:59 06:59 18:59 Intake Total 118 100 Output Total 250 Balance -132 100 Intake: Oral 118 100 Output: Urine 250 Other: Voiding Method Diaper Diaper External Catheter External Catheter # Voids 1 - Labs CBC & Chem 7: 06/01/21 08:12 06/01/21 08:12 Labs: Abnormal Lab Results - Last 24 Hours (Table) 05/31/21 05/31/21 05/31/21 Range/Units 11:47 11:47 12:14 RBC (3.80-5.40) m/uL Hgb 7.7 L (11.4-16.0) gm/dL Hct 29.1 L (34.0-46.0) % MCV 76.4 L (80.0-100.0) fL MCH 20.2 L (25.0-35.0) pg MCHC 26.5 L (31.0-37.0) g/dL RDW 24.7 H (11.5-15.5) % Plt Count 113 L (150-450) k/uL Lymphocytes # (Manual) 0.53 L (1.0-4.8) k/uL Nucleated RBCs 1 H (0-0) /100 WBC Sodium 136 L (137-145) mmol/L BUN 26 H (7-17) mg/dL Creatinine 2.52 H (0.52-1.04) mg/dL Glucose 126 H (74-99) mg/dL POC Glucose (mg/dL) 126 H (75-99) mg/dL 05/31/21 05/31/21 06/01/21 Range/Units 16:31 20:21 06:05 RBC (3.80-5.40) m/uL Hgb (11.4-16.0) gm/dL Hct (34.0-46.0) % MCV (80.0-100.0) fL MCH (25.0-35.0) pg MCHC (31.0-37.0) g/dL RDW (11.5-15.5) % Plt Count (150-450) k/uL Lymphocytes # (Manual) (1.0-4.8) k/uL Nucleated RBCs (0-0) /100 WBC Sodium (137-145) mmol/L BUN (7-17) mg/dL Creatinine (0.52-1.04) mg/dL Glucose (74-99) mg/dL POC Glucose (mg/dL) 109 H 119 H 105 H (75-99) mg/dL 06/01/21 06/01/21 Range/Units 08:12 08:12 RBC 3.64 L (3.80-5.40) m/uL Hgb 7.4 L (11.4-16.0) gm/dL Hct 27.9 L (34.0-46.0) % MCV 76.5 L (80.0-100.0) fL MCH 20.3 L (25.0-35.0) pg MCHC 26.5 L (31.0-37.0) g/dL RDW 25.3 H (11.5-15.5) % Plt Count 84 L (150-450) k/uL Lymphocytes # (Manual) 0.87 L (1.0-4.8) k/uL Nucleated RBCs 1 H (0-0) /100 WBC Sodium 136 L (137-145) mmol/L BUN 28 H (7-17) mg/dL Creatinine 2.91 H (0.52-1.04) mg/dL Glucose 106 H (74-99) mg/dL POC Glucose (mg/dL) (75-99) mg/dL Microbiology - Last 24 Hours (Table) 05/28/21 10:30 Blood Culture - Preliminary Blood No Growth after 72 hours 05/28/21 10:15 Blood Culture - Preliminary Blood No Growth after 72 hours
[2021-06-01] MEDS: AMIODARONE 200 MG TAB PO SCH (11:15)
[2021-06-01] MEDS: PANTOPRAZOLE 40 MG/10 ML VIAL IVP SCH ×2 (11:15→20:52)
[2021-06-01] MEDS: FUROSEMIDE 20 MG TAB PO SCH (11:15)
[2021-06-01] MEDS: DORZOLAMIDE-TIMOLOL 2.23%/0.68 10ML BTL BOTH EYES SCH ×2 (11:16→20:52)
[2021-06-01 11:49] LABS: Glucose,Whole Blood 116 mg/dL (75-99)
--- NOTE | 2021-06-01 12:35 | CONS ---
CONSULTATION REASON FOR CONSULT: Renal failure. HISTORY OF PRESENT ILLNESS: Patient is a 60-year-old female who was admitted to the hospital on 05/28/2021 with complaints of shortness of breath, weakness and dizziness. Patient has underlying chronic atrial fibrillation, type 2 diabetes. She has underlying chronic kidney disease as well, with previous creatinine of around 1.7 to 1.4 mg/dL in July of 2020. Patient has underlying diastolic heart failure with morbid obesity. On this admission, her serum creatinine was 1.8 on initial admission. It has increased to 2.9 now. Patient's blood pressure was 77 mmHg systolic on admission. She is maintained on Coreg, which was decreased today. Patient states she has been voiding. She has an external catheter. Urine output is not accurately charted. Patient was on JAMAR inhibitors at home, which is currently on hold. She has not received any Lasix during this admission, as her blood pressure has been significantly low. Ejection fraction per Cardiology has been 50% to 55% previously. No IV contrast administration this admission. Patient's hemoglobin was significantly low on admission. She was noted to have a hemoglobin of 5.8 g/dL on initial admission. She has received packed RBCs and it is now at 7.4. Patient had an EGD done which showed mild antral gastritis and duodenitis. PAST MEDICAL HISTORY: Chronic atrial fibrillation, type 2 diabetes, obesity, history of lymphoma, details not clear, anxiety, diastolic heart failure. PAST SURGICAL HISTORY: Appendectomy. SOCIAL HISTORY: Patient is a former smoker. No history of drug abuse or alcohol abuse. MEDICATIONS: Medications prior to admission included Xarelto, Aldactone, Klonopin, ProAir, Lipitor, Lasix, Claritin, Coreg, Zestril, Desyrel, amiodarone. ALLERGIES: NONE. REVIEW OF SYSTEMS: As per HPI. Other systems negative. PHYSICAL EXAMINATION: Patient is comfortable, awake, not in any acute distress. Mildly short of breath. Blood pressure 121/68, heart rate 59 per minute. She is afebrile. EXAMINATION OF THE HEART: S1 and S2. EXAMINATION OF LUNGS: Decreased breath sounds at the bases. Abdomen is soft, morbidly obese. Examination of lower extremities shows chronic skin changes, chronic edema. GRINDER SETUP OPERATOR EXAM: Grossly intact. LABS: Sodium 136, potassium 4.5, chloride 107. CO2 is 22, BUN 28, creatinine 2.9, hemoglobin 7.4 g/dL. ASSESSMENT: 1. Acute kidney injury, mostly secondary to hypotension, hypoperfusion and cardiorenal syndrome. I agree with decreasing the dose of Coreg, given the hypotension. I will also add a small dose of midodrine. No nephrotoxic agents on board. Continue to hold off on the JAMAR inhibitors for now. Check urinalysis. Check ultrasound of the kidneys. Definitely the anemia has also contributed to the acute kidney injury which has progressively worsened during the hospitalization secondary to hypotension. 2. Rule out chronic kidney disease, NKF stage III. Previous creatinine 1.4 to 1.7 in July of 2020, possibly related to another episode of acute kidney injury at that time, and this would be stage III. Check UA and check ultrasound of the kidneys. 3. Diastolic heart failure. 4. Anemia, status post packed RBC transfusion, status post EGD which showed mild gastroenteritis, mild gastritis and mild antral gastritis. 5. Hypotension. PLAN: Check chest x-ray. Check UA. Check ultrasound of the kidneys. Check iron profile. Add Aranesp. Add midodrine. Repeat labs in a.m. Thank you for this consultation. Will continue to follow the patient with you during her hospitalization. MMODL / IJN: [id number] /
--- NOTE | 2021-06-01 13:10 | XR ---
EXAMINATION TYPE: XR chest 1V DATE OF EXAM: 06/01/2021 COMPARISON: 05/30/2021 HISTORY: Shortness of breath TECHNIQUE: Single frontal view of the chest is obtained. FINDINGS: Heart markedly enlarged. There is bilateral pleural effusions and right basilar subsegment al consolidation with interstitial changes. No pneumothorax. IMPRESSION: 1. Severe cardiomegaly with improving interstitial pattern suggestive of reducing CHF.
--- NOTE | 2021-06-01 13:34 | US ---
EXAMINATION TYPE: US kidneys/renal and bladder DATE OF EXAM: 06/01/2021 COMPARISON: NONE CLINICAL HISTORY: rf. renal failure on 421lb patient EXAM MEASUREMENTS: Unable to do exam on morbidly obese patient due to extensive pitting edema throughout abd. Ultrasou nd could not penetrate to visualize any structures at this time. IMPRESSION: Nondiagnostic exam as the technologist has noted above
[2021-06-01] MEDS: MIDODRINE 5 MG TAB PO SCH ×2 (13:52→18:45)
[2021-06-01] MEDS: FUROSEMIDE 10 MG/ML 4 ML VIAL IV SCH (14:53)
--- NOTE | 2021-06-01 15:09 | P.PN ---
Subjective Progress Note Date: 06/01/21 60-year-old female patient of Dr. Lei with history of chronic atrial fibrillation, and patient is on Zaroxolyn for anticoagulation. Other medical history is taken for diabetes mellitus type 2, previous history of lymphoma in 2000, anxiety, former smoker, and hyperlipidemia. Patient presented to the [facility] department by EMS for evaluation of increased shortness of breath, and severe weakness. Patient states that about a month and a half ago she had a fall, reports having some melanotic stools at home. She noticed increased shortness of breath especially with exertion. Denied any fever or chills, denied any episodes of chest pain. She states today she went to the bathroom and she was too weak to get up. She spent 3 hours just sitting on the toilet and then she had to alert her to call the ambulance. In the emergency department patient's hemoglobin was 5.8, platelet count was 233, white count was within normal limits at 6.8, INR was 1.9, potassium was 5.4, CO2 is 19, BUN is 2 1, creatinine is 1.8, lactic acid was 3.4, troponin was 0.354, and proBNP was 12,000. She was checked for COVID-19 and was found to be negative. Patient was also in SVT with a rate of 165, she was started on Cardizem infusion, she had subsequent converted to sinus rhythm. Cardizem drip has been discontinued, her Xarelto is currently on hold, patient will be transfused with 2 units of packed red blood cells. No complaints of abdominal pain, she is mildly short of breath with conversation but appears to be in no acute distress, she is on 2 L of oxygen her pulse ox is 100%, no fever or chills, she was seen in consultation by cardiology, who restarted her Coreg, patient received a dose of Kcentra to reverse anticoagulation. Chest x-ray revealed cardiomegaly with diffuse interstitial pattern possibly related to CHF versus interstitial pneumonia. Pneumonia since been less likely, patient received a dose of Lasix, she also has increased swelling in her bilateral lower extremities. She is currently awaiting a bed in the intensive care unit. On today's evaluation on 05/29/2021 patient seen in follow-up in the intensive care unit, she is awake and alert, in no acute distress, she is currently on 2 L of oxygen pulse ox is 96%, she is afebrile, she had another episode of SVT during the night, Cardizem drip was started, and the episode was self-limiting, patient is back in sinus mechanism with a rate of 71 BPM, blood pressure is 92/52, patient is not on any vasopressor support, she states she is feeling better today. No breathing difficulty. No cough, no chest pain, today's h emoglobin is 6.8, and patient will receive another unit of packed red blood cells, for a total of 3 units during this admission. No recurrence of melanotic stools since admission. GI service evaluation is pending. Remains nothing by mouth. Patient is on PPI therapy, Lasix 40 mg every 8 hours has been started, for acute exacerbation of CHF. Otherwise no other events overnight, and patient is stable for transfer out of intensive care unit to regular 3 S. bed. On 06/01/2021 patient seen in follow-up on selective care unit, she is awake and alert, in no acute distress, breathing comfortable, currently on room air with a pulse ox of 92%, vital signs have been stable, no cough, no phlegm production, no chest discomfort. Her follow-up chest x-ray today shows severe cardiomegaly with improving interstitial pattern suggestive of improving CHF. Today's labs have been reviewed, white blood cell count is 5.8, hemoglobin is 7.4, electrolytes are within normal limits, B1 is 28, creatinine is 2.91. Her Xarelto remains on hold. Patient continues on nebulized bronchodilators, she continues on oral Lasix, she is on Coreg and amiodarone. Cardiology is following. Ultrasound of the kidneys and bladder could not be completed dated to morbid obesity, pitting edema and the ultrasound could not penetrate to visualize any structures. Objective - Vital Signs Vital signs: Vital Signs Temp 97.5 F L 06/01/21 11:00 Pulse 62 06/01/21 12:30 Resp 18 06/01/21 11:00 BP 110/70 06/01/21 11:00 Pulse Ox 92 L 06/01/21 11:00 Intake & Output 05/31/21 06/01/21 06/01/21 18:59 06:59 18:59 Intake Total 118 100 118 Output Total 250 Balance -132 100 118 Intake: Oral 118 100 118 Output: Urine 250 Other: Voiding Method Diaper Diaper Diaper External Catheter External Catheter External Catheter # Voids 1 - Exam GENERAL EXAM: Alert, very pleasant, 60-year-old obese -[place] female, on 2 L of oxygen with pulse ox in the 100%, comfortable in no apparent distress. HEAD: Normocephalic/atraumatic. EYES: Normal reaction of pupils, equal size. Conjunctiva pink, sclera white. NOSE: Clear with pink turbinates. THROAT: No erythema or exudates. NECK: No masses, no JVD, no thyroid enlargement, no adenopathy. CHEST: No chest wall deformity. Symmetrical expansion. LUNGS: Equal air entry with scattered wheezing, and crackles CVS: Regular rate and rhythm, normal S1 and S2, no gallops, no murmurs, no rubs ABDOMEN: Soft, nontender. No hepatosplenomegaly, normal bowel sounds, no guarding or rigidity. EXTREMITIES: No clubbing, 1+ lower extremity edema no cyanosis, 2+ pulses and upper and lower extremities. MUSCULOSKELETAL: Muscle strength and tone normal. SPINE: No scoliosis or deformity SKIN: No rashes, patient has thickened skin on bilateral lower extremities CENTRAL NERVOUS SYSTEM: Alert and oriented -3. No focal deficits, tone is normal in all 4 extremities. PSYCHIATRIC: Alert and oriented -3. Appropriate affect. Intact judgment and insight. - Labs CBC & Chem 7: 06/01/21 08:12 06/01/21 08:12 Labs: Abnormal Lab Results - Last 24 Hours (Table) 05/31/21 05/31/21 06/01/21 Range/Units 16:31 20:21 06:05 RBC (3.80-5.40) m/uL Hgb (11.4-16.0) gm/dL Hct (34.0-46.0) % MCV (80.0-100.0) fL MCH (25.0-35.0) pg MCHC (31.0-37.0) g/dL RDW (11.5-15.5) % Plt Count (150-450) k/uL Lymphocytes # (Manual) (1.0-4.8) k/uL Nucleated RBCs (0-0) /100 WBC Sodium (137-145) mmol/L BUN (7-17) mg/dL Creatinine (0.52-1.04) mg/dL Glucose (74-99) mg/dL POC Glucose (mg/dL) 109 H 119 H 105 H (75-99) mg/dL 06/01/21 06/01/21 06/01/21 Range/Units 08:12 08:12 11:46 RBC 3.64 L (3.80-5.40) m/uL Hgb 7.4 L (11.4-16.0) gm/dL Hct 27.9 L (34.0-46.0) % MCV 76.5 L (80.0-100.0) fL MCH 20.3 L (25.0-35.0) pg MCHC 26.5 L (31.0-37.0) g/dL RDW 25.3 H (11.5-15.5) % Plt Count 84 L (150-450) k/uL Lymphocytes # (Manual) 0.87 L (1.0-4.8) k/uL Nucleated RBCs 1 H (0-0) /100 WBC Sodium 136 L (137-145) mmol/L BUN 28 H (7-17) mg/dL Creatinine 2.91 H (0.52-1.04) mg/dL Glucose 106 H (74-99) mg/dL POC Glucose (mg/dL) 116 H (75-99) mg/dL Microbiology - Last 24 Hours (Table) 05/28/21 10:30 Blood Culture - Preliminary Blood No Growth after 96 hours 05/28/21 10:15 Blood Culture - Preliminary Blood No Growth after 96 hours Assessment and Plan Plan: Assessment: #1. Acute hypoxic respiratory failure related to acute exacerbation of CHF, with preserved LV function, and EF of 50-55% and moderate aortic stenosis #2. Dyspnea, related to acute blood loss anemia, patient presented with a hemoglobin of 5.8, with reports of melanotic stools, received 3 units of packed red blood cells, current hemoglobin is 7.4. Patient is status post EGD and colonoscopy with biopsy and colonoscopy on 05/30/2021 showing mild antral gastritis and duodenitis but no evidence of peptic ulcer disease, and colonoscopy showed 3 small nonbleeding cecal AVM status post argon plasma coagulation and 1 cm x 2 rectal polyps status post snare polypectomy #3. Chronic atrial fibrillation on Xarelto. Xarelto currently on hold, patient was given a dose of Kcentra, 2 units of packed red blood cells is pending for transfusion. Patient is receiving another unit of packed red blood cells this morning for hemoglobin of 6.8 #4. Former smoker, in remission #6. Suspect underlying history of COPD #7. Acute kidney injury, echocardiography technologist consulting #8. Troponin leak, possibly related to hypoxia, profound anemia, oxygen supply demand mismatch. Cardiology is following #9. Lactic acidosis, mild, improved, not related to sepsis, but cultures are pending #10. Diabetes mellitus type 2 #11. Morbid obesity #12. Hypertension #13. Hyperlipidemia #14. Episode of SVT, or A. fib with RVR, currently back in sinus mechanism Plan: Stable from pulmonary perspective Breathing comfortably Continue with diuretics per cardiology recommendations, currently down to once daily dose of oral Lasix Today's chest x-ray has been reviewed showing improving CHF Anticoagulation remains on hold, no active bleeding Today's labs have been noted Hemodynamically remained stable Worsening of patient's renal function, nephrology is consulting I performed a history & physical examination of the patient and discussed their management with my nurse practitioner, Belinda Delgadillo. I reviewed the nurse practitioner's note and agree with the documented findings and plan of care. Lung sounds are positive for diminished breath sounds throughout the lung boggs. The findings and the impression was discussed with the patient. I attest to the documentation by the nurse practitioner. Time with Patient: Less than 30
[2021-06-01 16:48] LABS: Glucose,Whole Blood 127 mg/dL (75-99)
[2021-06-01] MEDS: carvediloL 3.125 MG TAB PO SCH (18:45)
--- NOTE | 2021-06-01 18:48 | PN ---
PROGRESS NOTE DATE OF SERVICE: 06/01/2021 This 60-year-old woman was admitted with atrial fibrillation with fast ventricular rate. Also, had possible supraventricular tachycardia. The patient also had anemia. Colonoscopy is being done. The patient was transfused three units, hemoglobin is 7.4. No active bleeding is noted. No chest pain. No palpitations. No fever. PHYSICAL EXAMINATION: Alert and oriented x3. Pulse 120, irregular; blood pressure 104/55, respiration 18, temperature 96.8, pulse ox 94% on room air. HEENT: Conjunctivae normal. Oral mucosa moist. NECK: No jugular venous distention. No lymph node enlargement. CARDIOVASCULAR: S1, S2, muffled. No S3, no S4, RESPIRATORY: Diminished breath sounds at the bases. A few scattered rhonchi. ABDOMEN: Soft, nontender. LEGS: No edema, no swelling. NERVOUS SYSTEM: No focal deficits. LABS: WBC 5.2, hemoglobin 7.4, sodium 132, glucose noted. ASSESSMENT: 1. Atrial fibrillation with fast ventricular rate, present on admission. 2. Possible supraventricular tachycardia, present on admission. 3. Anemia, possibly chronic blood-loss anemia with acute GI blood loss from cecal AVM. 4. Status post EGD and colonoscopy, EGD showing duodenitis and gastritis. 5. Congestive heart failure with acute exacerbation, ejection fraction unknown. 6. Acute hypoxic respiratory failure present on admission secondary from CHF. 7. History of chronic atrial fibrillation. 8. Diabetes mellitus, type 2. 9. History of lymphoma. 10.History of appendectomy. 11.History of anxiety. 12.Remote history of nicotine dependence. 13.History of THC. 14.Anemia, normocytic. 15.Elevated PT/INR. 16.Hyperkalemia secondary to renal failure. 17.Acute renal failure, presently with acute prerenal acute tubular necrosis. 18.Elevated bilirubin. 19.Increased AST. 20.Troponin 0.378, indeterminate. 21.Acute myocardial infarction unlikely per Cardiology. 22.Hypokalemia. 23.Mild protein calorie malnutrition. 24.FULL CODE. RECOMMENDATIONS: Continue current management and symptomatic treatment. Otherwise, repeat hemoglobin. Repeat labs. Closely monitor. Further recommendations to follow. MMODL / IJN: [id number] /
[2021-06-01 20:00] LABS: Glucose,Whole Blood 155 mg/dL (75-99)
[2021-06-01] MEDS: ATORVASTATIN 20 MG TAB PO SCH (20:52)
[2021-06-01] MEDS: LATANOPROST 0.005% OPHTH DROPS 2.5 ML BTL BOTH EYES SCH (20:53)
[2021-06-02 05:59] LABS: Glucose,Whole Blood 113 mg/dL (75-99)
[2021-06-02] MEDS: MIDODRINE 5 MG TAB PO SCH ×3 (06:52→17:38)
[2021-06-02] MEDS: carvediloL 3.125 MG TAB PO SCH ×2 (06:52→17:38)
[2021-06-02] MEDS: IPRATROPIUM-ALBUTEROL 3 ML NEB INHALATION SCH ×3 (07:26→20:35)
[2021-06-02 08:01] LABS: Calcium 8.3 mg/dL (8.4-10.2)
[2021-06-02 08:04] LABS: Potassium 4.7 mmol/L (3.5-5.1)
[2021-06-02 08:20] LABS: Anisocytosis Marked; Basophils % (A) 0 %; Eosinophils # (A) 0.1 k/uL (0-0.7); Eosinophils % (A) 1 %; HCT 28.9 % (34.0-46.0); HGB 7.9 gm/dL (11.4-16.0); Hypochromasia Marked; Lymphocytes # (A) 1.2 k/uL (1.0-4.8); Lymphocytes % (A) 18 %; MCH 20.9 pg (25.0-35.0); MCHC 27.3 g/dL (31.0-37.0); MCV 76.8 fL (80.0-100.0); Mean Platelet Volume 8.4; Microcytosis Marked; Monocytes # (A) 0.7 k/uL (0-1.0); Monocytes % (A) 10 %; Neutrophils # (A) 4.6 k/uL (1.3-7.7); Neutrophils % (A) 69 %; Poikilocytosis Marked; RBC 3.77 m/uL (3.80-5.40); WBC 6.7 k/uL (3.8-10.6)
[2021-06-02 08:24] LABS: RDW 26.3 % (11.5-15.5)
[2021-06-02 08:25] LABS: Platelet Count 98 k/uL (150-450)
[2021-06-02] MEDS: PANTOPRAZOLE 40 MG/10 ML VIAL IVP SCH ×2 (09:21→20:10)
[2021-06-02] MEDS: DORZOLAMIDE-TIMOLOL 2.23%/0.68 10ML BTL BOTH EYES SCH ×2 (09:22→20:11)
[2021-06-02] MEDS: FUROSEMIDE 20 MG TAB PO SCH (09:24)
[2021-06-02] MEDS: AMIODARONE 200 MG TAB PO SCH (09:24)
--- NOTE | 2021-06-02 10:32 | P.PN ---
Subjective Progress Note Date: 06/02/21 60-year-old female patient of Dr. Lei with history of chronic atrial fibrillation, and patient is on Zaroxolyn for anticoagulation. Other medical history is taken for diabetes mellitus type 2, previous history of lymphoma in 2000, anxiety, former smoker, and hyperlipidemia. Patient presented to the em ergency department by EMS for evaluation of increased shortness of breath, and severe weakness. Patient states that about a month and a half ago she had a fall, reports having some melanotic stools at home. She noticed increased shortness of breath especially with exertion. Denied any fever or chills, denied any episodes of chest pain. She states today she went to the bathroom and she was too weak to get up. She spent 3 hours just sitting on the toilet and then she had to alert her to call the ambulance. In the emergency department patient's hemoglobin was 5.8, platelet count was 233, white count was within normal limits at 6.8, INR was 1.9, potassium was 5.4, CO2 is 19, BUN is 21, creatinine is 1.8, lactic acid was 3.4, troponin was 0.354, and proBNP was 12,000. She was checked for COVID-19 and was found to be negative. Patient was also in SVT with a rate of 165, she was started on Cardizem infusion, she had subsequent converted to sinus rhythm. Cardizem drip has been discontinued, her Xarelto is currently on hold, patient will be transfused with 2 units of packed red blood cells. No complaints of abdominal pain, she is mildly short of breath with conversation but appears to be in no acute distress, she is on 2 L of oxygen her pulse ox is 100%, no fever or chills, she was seen in consultation by cardiology, who restarted her Coreg, patient received a dose of Kcentra to reverse anticoagulation. Chest x-ray revealed cardiomegaly with diffuse interstitial pattern possibly related to CHF versus interstitial pneumonia. Pneumonia since been less likely, patient received a dose of Lasix, she also has increased swelling in her bilateral lower extremities. She is currently awaiting a bed in the intensive care unit. On today's evaluation on 05/29/2021 patient seen in follow-up in the intensive care unit, she is awake and alert, in no acute distress, she is currently on 2 L of oxygen pulse ox is 96%, she is afebrile, she had another episode of SVT durin g the night, Cardizem drip was started, and the episode was self-limiting, patient is back in sinus mechanism with a rate of 71 BPM, blood pressure is 92/52, patient is not on any vasopressor support, she states she is feeling better today. No breathing difficulty. No cough, no chest pain, today's hemoglobin is 6.8, and patient will receive another unit of packed red blood cells, for a total of 3 units during this admission. No recurrence of melanotic stools since admission. GI service evaluation is pending. Remains nothing by mouth. Patient is on PPI therapy, Lasix 40 mg every 8 hours has been started, for acute exacerbation of CHF. Otherwise no other events overnight, and patient is stable for transfer out of intensive care unit to regular 3 S. bed. On 06/01/2021 patient seen in follow-up on [facility] care unit, she is awake and alert, in no acute distress, breathing comfortable, currently on room air with a pulse ox of 92%, vital signs have been stable, no cough, no phlegm production, no chest discomfort. Her follow-up chest x-ray today shows severe cardiomegaly with improving interstitial pattern suggestive of improving CHF. Today's labs have been reviewed, white blood cell count is 5.8, hemoglobin is 7.4, electrolytes are within normal limits, B1 is 28, creatinine is 2.91. Her Xarelto remains on hold. Patient continues on nebulized bronchodilators, she continues on oral Lasix, she is on Coreg and amiodarone. Cardiology is following. Ultrasound of the kidneys and bladder could not be completed dated to morbid obesity, pitting edema and the ultrasound could not penetrate to visualize any structures. On 06/02/2021, the patient is stable. No significant breathing complaints. She was in intensive care unit that she is currently transferred out of the i ntensive care unit as the patient's condition is stable. The patient has been adequately resuscitated with fluids and blood products. The patient is currently on room air oxygen. That hemoglobin today is at 7.9. Platelet count from yesterday was 84 and follow-up levels are still pending for now. She remains on oral Lasix. She remains on Coreg and amiodarone. Renal function today is at 3.3, slightly worse compared to yesterday. Serum bicarb is at 20. Sodium is at 135. She is not receiving any IV fluids for the time being. Objective - Vital Signs Vital signs: Vital Signs Temp 97.6 F 06/02/21 04:15 Pulse 64 06/02/21 04:15 Resp 20 06/02/21 04:15 BP 139/75 06/02/21 04:15 Pulse Ox 96 06/02/21 04:15 Intake & Output 06/01/21 06/02/21 06/02/21 18:59 06:59 18:59 Intake Total 354 Balance 354 Intake: Oral 354 Other: Voiding Method Diaper Diaper # Voids 0 # Bowel Movements 1 0 - Exam GENERAL EXAM: Alert, very pleasant, 60-year-old obese -Swiss female, on RA oxygen with pulse ox in the 100%, comfortable in no apparent distress. HEAD: Normocephalic/atraumatic. EYES: Normal reaction of pupils, equal size. Conjunctiva pink, sclera white. NOSE: Clear with pink turbinates. THROAT: No erythema or exudates. NECK: No masses, no JVD, no thyroid enlargement, no adenopathy. CHEST: No chest wall deformity. Symmetrical expansion. LUNGS: Equal air entry with scattered wheezing, and crackles CVS: Regular rate and rhythm, normal S1 and S2, no gallops, no murmurs, no rubs ABDOMEN: Soft, nontender. No hepatosplenomegaly, normal bowel sounds, no guarding or rigidity. EXTREMITIES: No clubbing, 1+ lower extremity edema no cyanosis, 2+ pulses and upper and lower extremities. MUSCULOSKELETAL: Muscle strength and tone normal. SPINE: No scoliosis or deformity SKIN: No rashes, patient has thickened skin on bilateral lower extremities CENTRAL NERVOUS SYSTEM: Alert and oriented -3. No focal deficits, tone is normal in all 4 extremities. PSYCHIATRIC: Alert and oriented -3. Appropriate affect. Intact judgment and insight. - Labs CBC & Chem 7: 06/02/21 07:31 06/02/21 07:31 Labs: Abnormal Lab Results - Last 24 Hours (Table) 06/01/21 06/01/21 06/01/21 Range/Units 08:12 11:46 16:37 RBC (3.80-5.40) m/uL Hgb (11.4-16.0) gm/dL Hct (34.0-46.0) % MCV (80.0-100.0) fL MCH (25.0-35.0) pg MCHC (31.0-37.0) g/dL Plt Count 84 L (150-450) k/uL Lymphocytes # (Manual) 0.87 L (1.0-4.8) k/uL Nucleated RBCs 1 H (0-0) /100 WBC Sodium (137-145) mmol/L Carbon Dioxide (22-30) mmol/L BUN (7-17) mg/dL Creatinine (0.52-1.04) mg/dL Glucose (74-99) mg/dL POC Glucose (mg/dL) 116 H 127 H (75-99) mg/dL Calcium (8.4-10.2) mg/dL 06/01/21 06/02/21 06/02/21 Range/Units 19:55 05:57 07:31 RBC 3.77 L (3.80-5.40) m/uL Hgb 7.9 L (11.4-16.0) gm/dL Hct 28.9 L (34.0-46.0) % MCV 76.8 L (80.0-100.0) fL MCH 20.9 L (25.0-35.0) pg MCHC 27.3 L (31.0-37.0) g/dL Plt Count (150-450) k/uL Lymphocytes # (Manual) (1.0-4.8) k/uL Nucleated RBCs (0-0) /100 WBC Sodium (137-145) mmol/L Carbon Dioxide (22-30) mmol/L BUN (7-17) mg/dL Creatinine (0.52-1.04) mg/dL Glucose (74-99) mg/dL POC Glucose (mg/dL) 155 H 113 H (75-99) mg/dL Calcium (8.4-10.2) mg/dL 06/02/21 Range/Units 07:31 RBC (3.80-5.40) m/uL Hgb (11.4-16.0) gm/dL Hct (34.0-46.0) % MCV (80.0-100.0) fL MCH (25.0-35.0) pg MCHC (31.0-37.0) g/dL Plt Count (150-450) k/uL Lymphocytes # (Manual) (1.0-4.8) k/uL Nucleated RBCs (0-0) /100 WBC Sodium 135 L (137-145) mmol/L Carbon Dioxide 20 L (22-30) mmol/L BUN 30 H (7-17) mg/dL Creatinine 3.33 H (0.52-1.04) mg/dL Glucose 110 H (74-99) mg/dL POC Glucose (mg/dL) (75-99) mg/dL Calcium 8.3 L (8.4-10.2) mg/dL Microbiology - Last 24 Hours (Table) 05/28/21 10:30 Blood Culture - Preliminary Blood No Growth after 96 hours 05/28/21 10:15 Blood Culture - Preliminary Blood No Growth after 96 hours Assessment and Plan Plan: #1. Acute hypoxic respiratory failure related to acute exacerbation of CHF, with preserved LV function, and EF of 50-55% and moderate aortic stenosis, the patient is currently on room air oxygen. #2. Dyspnea, related to acute blood loss anemia, patient presented with a hemoglobin of 5.8, with reports of melanotic stools, received 3 units of packed red blood cells, current hemoglobin is 7.4. Patient is status post EGD and colonoscopy with biopsy and colonoscopy on 05/30/2021 showing mild antral ga stritis and duodenitis but no evidence of peptic ulcer disease, and colonoscopy showed 3 small nonbleeding cecal AVM status post argon plasma coagulation and 1 cm x 2 rectal polyps status post snare polypectomy. Hemoglobin stable for now. #3. Chronic atrial fibrillation on Xarelto. Xarelto currently on hold, patient was given a dose of Kcentra, a total of 3 units of packed RBC was given to this patient during this current hospitalization and the patient's hemoglobin currently stable at 7.9. No evidence of any acute bleeding. The patient is on Xarelto. #4. Former smoker, in remission #6. Suspect underlying history of COPD #7. Acute kidney injury, him manager consulting #8. Troponin leak, possibly related to hypoxia, profound anemia, oxygen supply demand mismatch. Cardiology is following #9. Lactic acidosis, mild, improved, not related to sepsis, but cultures are pending #10. Diabetes mellitus type 2 #11. Morbid obesity #12. Hypertension #13. Hyperlipidemia #14. Episode of SVT, or A. fib with RVR, currently back in sinus mechanism Plan: Stable from pulmonary perspective Breathing comfortably Continue with diuretics per cardiology recommendations, currently down to once daily dose of oral Lasix Today's chest x-ray has been reviewed showing improving CHF Xarelto for anticoagulation Hemoglobin stable Patient is on room air oxygen Today's labs have been noted, creatinine will be monitored Hemodynamically remained stable Pulmonary critical care services will sign off
[2021-06-02 11:46] LABS: Glucose,Whole Blood 145 mg/dL (75-99)
--- NOTE | 2021-06-02 13:21 | P.PN ---
Subjective This is a 60-year-old female with a past medical history significant for chronic atrial fibrillation, hypertension, hyperlipidemia, and COPD. 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 We have been asked to see the patient in consultation for SVT, arrhythmia. Patient presented to the hospital secondary to shortness of breath and fatigue. Patient was found to be a-fib with RVR. Patient was placed on a Cardizem drip. Patient was also found to be anemic with a hemoglobin of 5.8. She takes Xarelto at home. She reports melanotic stools at home. She underwent EGD and colonoscopy with GI on 05/30/21, revealing gastritis and duodenitis with no evidence of peptic ulcer disease. Colonoscopy revealed 3 small nonbleeding cecal AVMs. Per GI service, anticoagulation can be resumed in 3 days on 06/02/21. Patient was started on Protonix. Echocardiogram revealed ejection fraction 50-55%, moderate aortic stenosis, and moderate mitral regurgitation. 06/02/21 Patient examined this for the bedside. She denies chest pain or pressure. She denies shortness of breath. She is currently maintained on amiodarone 200 mg daily, atorvastatin 30 mg nightly, carvedilol 3.125 mg twice a day, Lasix 20 mg by mouth daily, midodrine 5 mg twice a day, protonix 40mg IV BID. HGb 7.9, Hct 28.9, Sodium 135, K 4.7, renal function worsening BUN 30, sCr 3.33. Telemetry reviewed, she remains in atrial fibrillation with controlled ventricular rates. Chest Xray yesterday revealed cardiomegaly, improving interstitial pattern suggestive of reducing CHF. PHYSICAL EXAM: VITAL SIGNS: BP 86/51 HR 64 afebrile, 100% on room air GENERAL: Well-developed in no acute distress. HEENT: Neck supple. No JVD LUNGS: Respirations even and unlabored. Lungs with expiratory wheezing noted. HEART: Irregular rate and rhythm. S1 and S2 heard. ABDOMEN: Soft. Nondistended. Nontender. EXTREMITIES: Normal range of motion. No clubbing or cyanosis. Peripheral pulses intact. 1+ bilateral lower extremity edema NEUROLOGIC: Awake and alert. Oriented x 3. ASSESSMENT: Acute blood loss anemia Acute GI bleed, status post EGD and colonoscopy Abnormal troponin, secondary to above, no evidence of acute coronary syndrome Chronic persistent atrial fibrillation, on anticoagulation with Xarelto History of Hypertension- hypotensive inpatient COPD Hyperlipidemia Acute on chronic kidney disease PLAN: Restart Xarelto at 15mg nightly Nephrology following for acute kidney injury Lisinopril continues to be on hold due to KEYUR Continue current cardiac medications amiodarone, atorvastatin, carvedilol, Lasix, midodrine Further recommendations pending patient course Nurse practitioner note has been reviewed by physician. Signing provider agrees with the documented findings, assessment, and plan of care. Objective - Vital Signs Vital signs: Vital Signs Temp 97.4 F L 06/02/21 07:50 Pulse 60 06/02/21 07:50 Resp 20 06/02/21 07:50 BP 110/64 06/02/21 07:50 Pulse Ox 99 06/02/21 07:50 Intake & Output 06/01/21 06/02/21 06/02/21 18:59 06:59 18:59 Intake Total 354 0 Balance 354 0 Intake: Oral 354 0 Other: Voiding Method Diaper Diaper Diaper # Voids 0 # Bowel Movements 1 0 - Labs CBC & Chem 7: 06/02/21 07:31 06/02/21 07:31 Labs: Abnormal Lab Results - Last 24 Hours (Table) 06/01/21 06/01/21 06/02/21 Range/Units 16:37 19:55 05:57 RBC (3.80-5.40) m/uL Hgb (11.4-16.0) gm/dL Hct (34.0-46.0) % MCV (80.0-100.0) fL MCH (25.0-35.0) pg MCHC (31.0-37.0) g/dL Sodium (137-145) mmol/L Carbon Dioxide (22-30) mmol/L BUN (7-17) mg/dL Creatinine (0.52-1.04) mg/dL Glucose (74-99) mg/dL POC Glucose (mg/dL) 127 H 155 H 113 H (75-99) mg/dL Calcium (8.4-10.2) mg/dL 06/02/21 06/02/21 06/02/21 Range/Units 07:31 07:31 11:44 RBC 3.77 L (3.80-5.40) m/uL Hgb 7.9 L (11.4-16.0) gm/dL Hct 28.9 L (34.0-46.0) % MCV 76.8 L (80.0-100.0) fL MCH 20.9 L (25.0-35.0) pg MCHC 27.3 L (31.0-37.0) g/dL Sodium 135 L (137-145) mmol/L Carbon Dioxide 20 L (22-30) mmol/L BUN 30 H (7-17) mg/dL Creatinine 3.33 H (0.52-1.04) mg/dL Glucose 110 H (74-99) mg/dL POC Glucose (mg/dL) 145 H (75-99) mg/dL Calcium 8.3 L (8.4-10.2) mg/dL Microbiology - Last 24 Hours (Table) 05/28/21 10:30 Blood Culture - Preliminary Blood No Growth after 120 hours 05/28/21 10:15 Blood Culture - Preliminary Blood No Growth after 120 hours
[2021-06-02 14:19] LABS: Target Cells Present
[2021-06-02 14:20] LABS: Polychromasia Present
[2021-06-02 16:48] LABS: Glucose,Whole Blood 146 mg/dL (75-99)
[2021-06-02] MEDS: FUROSEMIDE 10 MG/ML 4 ML VIAL IV SCH (17:38)
[2021-06-02] MEDS: RIVAROXABAN 15 MG TAB PO SCH (17:38)
--- NOTE | 2021-06-02 18:29 | PN ---
PROGRESS NOTE The patient is seen for followup for acute kidney injury. Her renal function has worsened further with creatinine up to 3.3 from 2.9 yesterday. Ultrasound could not be done due to severe obesity. The patient is currently standing up with help and is trying to sit on the toilet. This morning her blood pressure is noted to be 110/64, heart rate 60 per minute. Pressure has been staying on the lower side. Repeat pressure later on this morning was 86/51. The patient continues to have chronic edema of the lower extremities. Rest of the exam cannot be performed. LAB: Show sodium 135, potassium 4.7, chloride 106, CO2 is 20, BUN 30, creatinine 3.3, hemoglobin 7.9 g/dL. ASSESSMENT: 1. Acute kidney injury secondary to hypotension hypoperfusion/cardiorenal syndrome. Urine output not accurately charted. We will check a post-void residual after patient voids to rule out urine retention. Ultrasound could not be performed due to significant obesity. UA has also not been obtained yet. The patient's dose of Coreg was decreased yesterday. She is maintained on very small dose of oral Lasix which we can continue and I will increase the midodrine further to 10 mg t.i.d. 2. Severe anemia on initial admission status post packed RBCs transfusion and EGD which showed mild gastritis. 3. Diastolic heart failure. 4. Chronic kidney disease stage 3, previous creatinine 1.4-1.7 in July of 2020, possibly related an episode of acute kidney injury at that time. UA is pending. An ultrasound could not be done. 5. Morbid obesity. 6. Acute hypoxic respiratory failure secondary to congestive heart failure exacerbation, acute on top of chronic, mostly diastolic. 7. Chronic atrial fibrillation, maintained on Xarelto. PLAN: Increase midodrine and continue with the Lasix, change to 40 mg IV daily. Repeat labs in a.m. I will reorder the UA. We will check a post-void residual as well. MMODL / IJN: [id number] /
[2021-06-02 19:42] LABS: Glucose,Whole Blood 131 mg/dL (75-99)
[2021-06-02] MEDS: ATORVASTATIN 20 MG TAB PO SCH (20:11)
[2021-06-02] MEDS: LATANOPROST 0.005% OPHTH DROPS 2.5 ML BTL BOTH EYES SCH (20:11)
[2021-06-02 23:12] LABS: Appearance,Urine Turbid (Clear); Bacteria,Urine Many /hpf; Bilirubin,Urine Negative (Negative); Blood,Urine Moderate (Negative); Budding Yeast,Urine Many /hpf; Color,Urine Yellow; Glucose,Urine (UA) Negative (Negative); Hyaline Casts,Urine 175 /lpf (0-2); Ketones,Urine Negative (Negative); Leukocyte Esterase,Urine Large (Negative); Mucus,Urine Few /hpf; Nitrite,Urine Negative (Negative); Protein,Urine 2+ (Negative); RBC,Urine 24 /hpf (0-5); Specific Gravity,Urine 1.016 (1.001-1.035); Squamous Epithelial Cell,Urine 2 /hpf (0-4); WBC,Urine >182 /hpf (0-5)
--- NOTE | 2021-06-03 03:42 | P.PN ---
Subjective Progress Note Date: 06/02/21 This is a pleasant 60 year old female who was recently admitted for atrial fibrillation with RVR and also found to have extremely low hemoglobin requiring transfusions. GI, cardiology, and pulmonary mechanic following closely. Patient was briefly monitored in the ICU and currently on the selective unit with telemetry monitoring. Patient scheduled for EGD/colonoscopy today with Dr. Gann. Patient continues on IV lasix as well with cardiology following closely. Anticoagulation Xarelto on hold and patient is on cardizem. No reported chest pain. Afebrile. 06/02/2021 Patient is seen and evaluated in follow up and is being closely monitored by multiple medical consultations including pulmonary and nephrology. Cardiology evaluated the patient and will sign off and has resumed xarelto. No further bleeding noted s/p colonoscopy. Hemoglobin today is 7.9. Urinalysis done which will order culture as it is positive. Attempted ultrasound to evaluate the kidneys unable to be done due to body habitus. Nephrology following and will initiate IV lasix 40mg daily for volume overload. Kidney functions worsening. Social work consult placed for possible ECF placement as patient continues to be weak. Labs: hgb is 7.9, platelets 98, INR 1.6, sodium is 135, potassium is 4.7, bun is 30, creatinine is 3.33 Review of systems: Constitutional: No reports of fatigue, fever, or chills Cardiovascular: No reports of chest pain or palpitations Respiratory: No reports of shortness of breath or cough GI: No reports of nausea, vomiting, or diarrhea : No reports of dysuria or retention Neurovascular: Reports generalized weakness Active Medications Acetaminophen (Acetaminophen Tab 325 Mg Tab) 650 mg PO Q4HR PRN PRN Reason: Fever and/or Mild Pain Albuterol/Ipratropium (Ipratropium-Albuterol 3 Ml Neb) 3 ml INHALATION RT-TID [facility] Last Admin: 06/02/21 12:12 Dose: Not Given Documented by: Albuterol/Ipratropium (Ipratropium-Albuterol 3 Ml Neb) 3 ml INHALATION RT-Q2H PRN PRN Reason: Shortness Of Breath Or Wheezing Amiodarone HCl (Amiodarone 200 Mg Tab) 200 mg PO DAILY [facility] Last Admin: 06/02/21 09:24 Dose: 200 mg Documented by: Atorvastatin Calcium (Atorvastatin 20 Mg Tab) 20 mg PO HS [facility] Last Admin: 06/01/21 20:52 Dose: 20 mg Documented by: Carvedilol (Carvedilol 3.125 Mg Tab) 3.125 mg PO AC-BID [facility] Last Admin: 06/02/21 06:52 Dose: 3.125 mg Documented by: Clonazepam (Clonazepam 1 Mg Tab) 1 mg PO BID PRN PRN Reason: Anxiety Dorzolamide/Timolol (Dorzolamide-Timolol 2.23%/0.68 10ml Btl) 1 drops BOTH EYES BID [facility] Last Admin: 06/02/21 09:22 Dose: 1 drops Documented by: Furosemide (Furosemide 20 Mg Tab) 20 mg PO DAILY [facility] Last Admin: 06/02/21 09:24 Dose: 20 mg Documented by: Latanoprost (Latanoprost 0.005% Ophth Drops 2.5 Ml Btl) 1 drops BOTH EYES HS [facility] Last Admin: 06/01/21 20:53 Dose: 1 drops Documented by: Midodrine (Midodrine 5 Mg Tab) 5 mg PO AC-BID [facility] Last Admin: 06/02/21 06:52 Dose: 5 mg Documented by: Naloxone HCl (Naloxone 0.4 Mg/Ml 1 Ml Vial) 0.2 mg IV Q2M PRN PRN Reason: Opioid Reversal Pantoprazole Sodium (Pantoprazole 40 Mg/10 Ml Vial) 40 mg IVP BID [facility] Last Admin: 06/02/21 09:21 Dose: 40 mg Documented by: Rivaroxaban (Rivaroxaban 15 Mg Tab) 15 mg PO W/SUPPER [facility]; Protocol Trazodone HCl (Trazodone Hcl 100 Mg Tab) 100 mg PO HS PRN PRN Reason: Insomnia Physical Exam: GENERAL: The patient is alert and oriented x3, morbidly obese. Well developed, well nourished. HEENT: Pupils are round and equally reacting to light. EOMI. No scleral icterus. No conjunctival pallor. Normocephalic, atraumatic. No pharyngeal erythema. No thyromegaly. CARDIOVASCULAR: S1 and S2 muffled PULMONARY: Diminished breath sounds bilaterally with some scattered rhonchi noted. ABDOMEN: Soft, obese, nontender, nondistended, normoactive bowel sounds. No palpable organomegaly. MUSCULOSKELETAL: No joint swelling or deformity. EXTREMITIES: No cyanosis, clubbing, bilateral lower extremity edema noted NEUROLOGICAL: Gross neurological examination did not reveal any focal deficits. Diffusely weak SKIN: No rashes. no petechiae. Assessment: atrial fibrillation with RVR, present on admission Possible supraventricular tachycardia, present on admission anemia, possible acute on chronic blood loss anemia with acute GI blood loss from cecal AVM Status post EGD and colonoscopy, EGD showing duodenitis and gastritis CHF, acute exacerbation, EF unknown Acute hypoxic respiratory failure, present on admission, secondary to CHF History of chronic afib History of DM, type 2 History of lymphoma History of appendectomy History of anxiety Remote history of nicotine dependence HIstory of THC anemia, macrocytic Elevated PT/INR Hyperkalemia secondary to renal failure ARF, present with acute tubular necrosis Elevated bilirubin Increased AST Troponin 0.378, indeterminate. Acute myocardial unlikely per cardiology Hypoalbuminemia with mild protein calorie malnutrition Full code Plan: Recommend to continue current medications, management, and symptomatic treatment. Transfuse if less than 7. Patient is status post EGD and colonoscopy with no further bleeding noted. Xarelto has been resumed and cardiology signed off. Nephrology following and obtained urinalysis which is positive and will add urine culture. Patient denies any pain or burning with urination. Will add Ceftriaxone while awaiting culture. REpeat am labs. Social work consulted for possible ECF as patient continues to be weak. Continue DVT and GI prophylaxis. Due to multiple complex medical issues, prognosis is guarded. Objective - Vital Signs Vital signs: Vital Signs Temp 97.6 F 06/02/21 04:15 Pulse 64 06/02/21 04:15 Resp 20 06/02/21 04:15 BP 139/75 06/02/21 04:15 Pulse Ox 96 06/02/21 04:15 Intake & Output 06/01/21 06/02/21 06/02/21 18:59 06:59 18:59 Intake Total 354 Balance 354 Intake: Oral 354 Other: Voiding Method Diaper Diaper # Voids 0 # Bowel Movements 1 0 - Labs CBC & Chem 7: 06/02/21 07:31 06/02/21 07:31 Labs: Abnormal Lab Results - Last 24 Hours (Table) 06/01/21 06/01/21 06/01/21 Range/Units 08:12 11:46 16:37 RBC 3.64 L (3.80-5.40) m/uL Hgb 7.4 L (11.4-16.0) gm/dL Hct 27.9 L (34.0-46.0) % MCV 76.5 L (80.0-100.0) fL MCH 20.3 L (25.0-35.0) pg MCHC 26.5 L (31.0-37.0) g/dL RDW 25.3 H (11.5-15.5) % Plt Count 84 L (150-450) k/uL Lymphocytes # (Manual) 0.87 L (1.0-4.8) k/uL Nucleated RBCs 1 H (0-0) /100 WBC Sodium (137-145) mmol/L Carbon Dioxide (22-30) mmol/L BUN (7-17) mg/dL Creatinine (0.52-1.04) mg/dL Glucose (74-99) mg/dL POC Glucose (mg/dL) 116 H 127 H (75-99) mg/dL Calcium (8.4-10.2) mg/dL 06/01/21 06/02/21 06/02/21 Range/Units 19:55 05:57 07:31 RBC 3.77 L (3.80-5.40) m/uL Hgb 7.9 L (11.4-16.0) gm/dL Hct 28.9 L (34.0-46.0) % MCV 76.8 L (80.0-100.0) fL MCH 20.9 L (25.0-35.0) pg MCHC 27.3 L (31.0-37.0) g/dL RDW (11.5-15.5) % Plt Count (150-450) k/uL Lymphocytes # (Manual) (1.0-4.8) k/uL Nucleated RBCs (0-0) /100 WBC Sodium (137-145) mmol/L Carbon Dioxide (22-30) mmol/L BUN (7-17) mg/dL Creatinine (0.52-1.04) mg/dL Glucose (74-99) mg/dL POC Glucose (mg/dL) 155 H 113 H (75-99) mg/dL Calcium (8.4-10.2) mg/dL 06/02/21 Range/Units 07:31 RBC (3.80-5.40) m/uL Hgb (11.4-16.0) gm/dL Hct (34.0-46.0) % MCV (80.0-100.0) fL MCH (25.0-35.0) pg MCHC (31.0-37.0) g/dL RDW (11.5-15.5) % Plt Count (150-450) k/uL Lymphocytes # (Manual) (1.0-4.8) k/uL Nucleated RBCs (0-0) /100 WBC Sodium 135 L (137-145) mmol/L Carbon Dioxide 20 L (22-30) mmol/L BUN 30 H (7-17) mg/dL Creatinine 3.33 H (0.52-1.04) mg/dL Glucose 110 H (74-99) mg/dL POC Glucose (mg/dL) (75-99) mg/dL Calcium 8.3 L (8.4-10.2) mg/dL Microbiology - Last 24 Hours (Table) 05/28/21 10:30 Blood Culture - Preliminary Blood No Growth after 96 hours 05/28/21 10:15 Blood Culture - Preliminary Blood No Growth after 96 hours
[2021-06-03 06:07] LABS: Glucose,Whole Blood 129 mg/dL (75-99)
[2021-06-03] MEDS: MIDODRINE 5 MG TAB PO SCH ×3 (07:11→16:57)
[2021-06-03] MEDS: carvediloL 3.125 MG TAB PO SCH ×2 (07:11→16:57)
[2021-06-03] MEDS: IPRATROPIUM-ALBUTEROL 3 ML NEB INHALATION SCH ×3 (08:40→21:02)
[2021-06-03] MEDS: PANTOPRAZOLE 40 MG/10 ML VIAL IVP SCH ×2 (08:41→20:15)
[2021-06-03] MEDS: FUROSEMIDE 10 MG/ML 4 ML VIAL IV SCH (08:41)
[2021-06-03] MEDS: AMIODARONE 200 MG TAB PO SCH (09:15)
[2021-06-03 09:16] LABS: Calcium 8.7 mg/dL (8.4-10.2); Potassium 4.8 mmol/L (3.5-5.1)
[2021-06-03] MEDS: DORZOLAMIDE-TIMOLOL 2.23%/0.68 10ML BTL BOTH EYES SCH ×2 (09:16→20:15)
[2021-06-03 09:27] LABS: Anisocytosis Marked; Basophils % (A) 0 %; Eosinophils % (A) 1 %; HCT 29.2 % (34.0-46.0); HGB 7.6 gm/dL (11.4-16.0); Hypochromasia Marked; Lymphocytes # (A) 1.2 k/uL (1.0-4.8); Lymphocytes % (A) 18 %; MCH 20.3 pg (25.0-35.0); MCHC 26.2 g/dL (31.0-37.0); MCV 77.3 fL (80.0-100.0); Mean Platelet Volume 7.5; Microcytosis Marked; Monocytes # (A) 0.5 k/uL (0-1.0); Monocytes % (A) 7 %; Neutrophils % (A) 72 %; Poikilocytosis Marked; RBC 3.78 m/uL (3.80-5.40); WBC 6.9 k/uL (3.8-10.6)
[2021-06-03 09:29] LABS: Platelet Count 86 k/uL (150-450); RDW 26.5 % (11.5-15.5)
[2021-06-03 11:48] LABS: Glucose,Whole Blood 114 mg/dL (75-99)
--- NOTE | 2021-06-03 12:28 | P.PN ---
Subjective Progress Note Date: 06/03/21 This is a pleasant 60 year old female who was recently admitted for atrial fibrillation with RVR and also found to have extremely low hemoglobin requiring transfusions. GI, cardiology, and pulmonary supervisor carpenters following closely. Patient was briefly monitored in the ICU and currently on the selective unit with telemetry monitoring. Patient scheduled for EGD/colonoscopy today with Dr. Gann. Patient continues on IV lasix as well with cardiology following closely. Anticoagulation Xarelto on hold and patient is on cardizem. No reported chest pain. Afebrile. 06/02/2021 Patient is seen and evaluated in follow up and is being closely monitored by multiple medical consultations including pulmonary and nephrology. Cardiology evaluated the patient and will sign off and has resumed xarelto. No further bleeding noted s/p colonoscopy. Hemoglobin today is 7.9. Urinalysis done which will order culture as it is positive. Attempted ultrasound to evaluate the kidneys unable to be done due to body habitus. Nephrology following and will initiate IV lasix 40mg daily for volume overload. Kidney functions worsening. Social work consult placed for possible ECF placement as patient continues to be weak. 06/03/2021 Patient is seen this morning lethargic although arousable. Patient continues to be weak and being closely followed by nephrology. Patient has been started on IV Lasix for extensive volume overload and creatinine continues to trend up and is currently 3.59 today. Urinalysis is positive and awaiting cultures. Blood cultures remain negative. Continue with Rocephin while awaiting for cultures are finalized. Patient's blood pressures on the lower side and nephrology has started midodrine and will continue to monitor closely. Insert indwelling Vásquez catheter for retention. Patient denies any bleeding noted and has been resumed on Xarelto and will continue to monitor closely. Labs: hgb is 7.6, WBC is 6.9., platelets 86, INR 1.6, sodium is 136, potassium is 4.8, bun is 34, creatinine is 3.59 Review of systems: Constitutional: reports of fatigue, no reports of fever, or chills Cardiovascular: No reports of chest pain or palpitations Respiratory: No reports of shortness of breath or cough GI: No reports of nausea, vomiting, or diarrhea : Having some urinary retention and indwelling Vásquez catheter placed Neurovascular: Reports generalized weakness Active Medications Acetaminophen (Acetaminophen Tab 325 Mg Tab) 650 mg PO Q4HR PRN PRN Reason: Fever and/or Mild Pain Albuterol/Ipratropium (Ipratropium-Albuterol 3 Ml Neb) 3 ml INHALATION RT-TID [facility] Last Admin: 06/03/21 12:10 Dose: Not Given Documented by: Albuterol/Ipratropium (Ipratropium-Albuterol 3 Ml Neb) 3 ml INHALATION RT-Q2H PRN PRN Reason: Shortness Of Breath Or Wheezing Amiodarone HCl (Amiodarone 200 Mg Tab) 200 mg PO DAILY [facility] Last Admin: 06/03/21 09:15 Dose: 200 mg Documented by: Atorvastatin Calcium (Atorvastatin 20 Mg Tab) 20 mg PO HS [facility] Last Admin: 06/02/21 20:11 Dose: 20 mg Documented by: Carvedilol (Carvedilol 3.125 Mg Tab) 3.125 mg PO AC-BID [facility] Last Admin: 06/03/21 07:11 Dose: 3.125 mg Documented by: Clonazepam (Clonazepam 1 Mg Tab) 1 mg PO BID PRN PRN Reason: Anxiety Dorzolamide/Timolol (Dorzolamide-Timolol 2.23%/0.68 10ml Btl) 1 drops BOTH EYES BID [facility] Last Admin: 06/03/21 09:16 Dose: 1 drops Documented by: Ceftriaxone Sodium 2 gm/ (Sodium Chloride) 50 mls @ 100 mls/hr IVPB Q24H [facility] Last Admin: 06/03/21 09:15 Dose: 100 mls/hr Documented by: Latanoprost (Latanoprost 0.005% Ophth Drops 2.5 Ml Btl) 1 drops BOTH EYES HS [facility] Last Admin: 06/02/21 20:11 Dose: 1 drops Documented by: Midodrine (Midodrine 5 Mg Tab) 10 mg PO AC-TID [facility] Last Admin: 06/03/21 12:13 Dose: 10 mg Documented by: Naloxone HCl (Naloxone 0.4 Mg/Ml 1 Ml Vial) 0.2 mg IV Q2M PRN PRN Reason: Opioid Reversal Pantoprazole Sodium (Pantoprazole 40 Mg/10 Ml Vial) 40 mg IVP BID [facility] Last Admin: 06/03/21 08:41 Dose: 40 mg Documented by: Rivaroxaban (Rivaroxaban 15 Mg Tab) 15 mg PO W/SUPPER [facility]; Protocol Last Admin: 06/02/21 17:38 Dose: 15 mg Documented by: Trazodone HCl (Trazodone Hcl 100 Mg Tab) 100 mg PO HS PRN PRN Reason: Insomnia Physical Exam: GENERAL: The patient is alert and oriented x3, morbidly obese. Well developed, well nourished. HEENT: Pupils are round and equally reacting to light. EOMI. No scleral icterus. No conjunctival pallor. Normocephalic, atraumatic. No pharyngeal erythema. No thyromegaly. CARDIOVASCULAR: S1 and S2 muffled PULMONARY: Diminished breath sounds bilaterally with some scattered rhonchi noted. ABDOMEN: Soft, obese, nontender, nondistended, normoactive bowel sounds. No palpable organomegaly. MUSCULOSKELETAL: No joint swelling or deformity. EXTREMITIES: No cyanosis, clubbing, bilateral lower extremity edema noted NEUROLOGICAL: Gross neurological examination did not reveal any focal deficits. Diffusely weak SKIN: No rashes. no petechiae. 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 Acute myocardial unlikely per cardiology Hypoalbuminemia with mild protein calorie malnutrition GI prophylaxis: Protonix DVT prophylaxis: Xarelto Full code Plan: Recommend to continue current medications, management, and symptomatic treatment. Transfuse if less than 7. Patient is status post EGD and colonoscopy with no further bleeding noted. Xarelto has been resumed and cardiology signed off. Nephrology following and obtained urinalysis which is positive and will add urine culture. Patient denies any pain or burning with urination other was having some urinary retention and will insert indwelling Vásquez catheter with close monitoring of intake and output. Will add Ceftriaxone while awaiting culture. REpeat am labs. Social work consulted for possible ECF as patient continues to be weak. Continue DVT and GI prophylaxis. Due to multiple complex medical issues, prognosis is guarded. Objective - Vital Signs Vital signs: Vital Signs Temp 97.5 F L 06/03/21 04:35 Pulse 63 06/03/21 04:35 Resp 20 06/03/21 04:35 BP 134/76 06/03/21 04:35 Pulse Ox 99 06/03/21 04:35 Intake & Output 06/02/21 06/03/21 06/03/21 18:59 06:59 18:59 Intake Total 480 Output Total 240 Balance 480 -240 Weight 201.4 kg Intake: Oral 480 Output: Urine 240 Other: Voiding Method Diaper Indwelling Catheter - Labs CBC & Chem 7: 06/03/21 08:42 06/03/21 08:42 Labs: Abnormal Lab Results - Last 24 Hours (Table) 06/02/21 06/02/21 06/02/21 Range/Units 07:31 11:44 16:46 RDW 26.3 H (11.5-15.5) % Plt Count 98 L (150-450) k/uL POC Glucose (mg/dL) 145 H 146 H (75-99) mg/dL Urine Appearance (Clear) Urine Protein (Negative) Urine Blood (Negative) Ur Leukocyte Esterase (Negative) Urine RBC (0-5) /hpf Urine WBC (0-5) /hpf Urine WBC Clumps (None) /hpf Urine Bacteria (None) /hpf Hyaline Casts (0-2) /lpf Urine Mucus (None) /hpf Urine Yeast (Budding) (None) /hpf 06/02/21 06/02/21 06/03/21 Range/Units 19:40 22:50 06:05 RDW (11.5-15.5) % Plt Count (150-450) k/uL POC Glucose (mg/dL) 131 H 129 H (75-99) mg/dL Urine Appearance Turbid H (Clear) Urine Protein 2+ H (Negative) Urine Blood Moderate H (Negative) Ur Leukocyte Esterase Large H (Negative) Urine RBC 24 H (0-5) /hpf Urine WBC >182 H (0-5) /hpf Urine WBC Clumps Many H (None) /hpf Urine Bacteria Many H (None) /hpf Hyaline Casts 175 H (0-2) /lpf Urine Mucus Few H (None) /hpf Urine Yeast (Budding) Many H (None) /hpf Microbiology - Last 24 Hours (Table) 05/28/21 10:30 Blood Culture - Preliminary Blood No Growth after 120 hours 05/28/21 10:15 Blood Culture - Preliminary Blood No Growth after 120 hours
[2021-06-03 15:09] LABS: RBC Fragments Present
--- NOTE | 2021-06-03 15:33 | PN ---
PROGRESS NOTE Patient is seen for followup for acute kidney injury. The patient's renal function has deteriorated. She was admitted with hypotension. Systolic blood pressure was as low as 77 mmHg. Patient is currently maintained on midodrine. Her blood pressure has improved with systolic of around 112-120 mmHg. The patient's renal function has deteriorated with serum creatinine up to 3.5 today. A Vásquez catheter was placed last night and it is unclear as to how much urine was obtained on initial Vásquez catheter placement. Her UA is suggestive of urinary tract infection. Patient has been started on IV antibiotics. This morning patient denies any chest pains or shortness of breath. PHYSICAL EXAMINATION: Blood pressure was 112/74, heart rate 56 per minute, she is afebrile. Examination of the heart S1, S2. Examination of the lungs, bilateral breath sounds are heard. Abdomen is soft, obese. Examination of lower extremities shows edema 1+ bilaterally with chronic skin changes, chronic edema noted. PROOFING MACHINE OPERATOR exam grossly intact. LAB: Show sodium 136, potassium 4.8, BUN 34, creatinine 3.59, hemoglobin 7.6 g/dL. UA shows more than 182 WBCs. ASSESSMENT: 1. Acute kidney injury, ATN, currently nonoliguric secondary to hypotension. Vásquez catheter was placed last night. So far we have had about 300 cc of urine output this morning. I will hold off on the Lasix for now and repeat labs in a.m. The patient's ejection fraction has been about 50-55%. Mostly diastolic heart failure previously. 2. Chronic kidney disease stage 3, previous creatinine 1.4-1.7 in July of 2020 possibly related to another episode of acute kidney injury at that time. 3. Pyuria, rule out urinary tract infection. The patient is maintained on antibiotics. Urine culture is pending. 4. Acute hypoxic respiratory failure secondary to congestive heart failure exacerbation, acute on top of chronic, mostly diastolic. 5. Chronic atrial fibrillation, maintained on Xarelto. 6. Morbid obesity. PLAN: Hold Lasix. Agree with Vásqeuz catheter. Repeat labs in a.m. Continue with the midodrine. Avoid any other nephrotoxic medications. MMODL / IJN: [id number] /
[2021-06-03 16:38] LABS: Glucose,Whole Blood 124 mg/dL (75-99)
[2021-06-03] MEDS: RIVAROXABAN 15 MG TAB PO SCH (16:57)
[2021-06-03 20:14] LABS: Glucose,Whole Blood 127 mg/dL (75-99)
[2021-06-03] MEDS: ATORVASTATIN 20 MG TAB PO SCH (20:15)
[2021-06-03] MEDS: LATANOPROST 0.005% OPHTH DROPS 2.5 ML BTL BOTH EYES SCH (20:15)
[2021-06-03] MEDS: TAMSULOSIN 0.4 MG CAP.ER.24H PO SCH (23:36)
[2021-06-04 06:08] LABS: Glucose,Whole Blood 105 mg/dL (75-99)
[2021-06-04] MEDS: MIDODRINE 5 MG TAB PO SCH ×3 (06:23→17:43)
[2021-06-04] MEDS: carvediloL 3.125 MG TAB PO SCH ×2 (06:24→17:43)
[2021-06-04] MEDS: IPRATROPIUM-ALBUTEROL 3 ML NEB INHALATION SCH ×3 (08:46→21:19)
[2021-06-04] MEDS: AMIODARONE 200 MG TAB PO SCH (09:12)
[2021-06-04] MEDS: PANTOPRAZOLE 40 MG/10 ML VIAL IVP SCH (09:12)
[2021-06-04] MEDS: DORZOLAMIDE-TIMOLOL 2.23%/0.68 10ML BTL BOTH EYES SCH ×2 (09:12→21:01)
[2021-06-04 09:49] LABS: Anisocytosis Marked; Basophils % (A) 0 %; Eosinophils # (A) 0.1 k/uL (0-0.7); Eosinophils % (A) 1 %; HCT 29.9 % (34.0-46.0); HGB 7.9 gm/dL (11.4-16.0); Hypochromasia Marked; Lymphocytes % (A) 18 %; MCH 20.7 pg (25.0-35.0); MCHC 26.6 g/dL (31.0-37.0); MCV 77.9 fL (80.0-100.0); Mean Platelet Volume 7.3; Microcytosis Marked; Monocytes # (A) 0.4 k/uL (0-1.0); Monocytes % (A) 8 %; Neutrophils # (A) 3.8 k/uL (1.3-7.7); Neutrophils % (A) 70 %; Poikilocytosis Moderate; RBC 3.84 m/uL (3.80-5.40); WBC 5.4 k/uL (3.8-10.6)
[2021-06-04 09:55] LABS: RDW 26.1 % (11.5-15.5)
[2021-06-04 09:56] LABS: Platelet Count 96 k/uL (150-450)
[2021-06-04 10:17] LABS: Calcium 8.6 mg/dL (8.4-10.2); Potassium 4.7 mmol/L (3.5-5.1)
[2021-06-04 11:35] LABS: Glucose,Whole Blood 152 mg/dL (75-99)
[2021-06-04 13:30] VITALS: BMI 66.9
--- NOTE | 2021-06-04 13:50 | P.PN ---
Subjective Progress Note Date: 06/04/21 This is a pleasant 60 year old female who was recently admitted for atrial fibrillation with RVR and also found to have extremely low hemoglobin requiring transfusions. GI, cardiology, and pulmonary business trainer following closely. Patient was briefly monitored in the ICU and currently on the selective unit with telemetry monitoring. Patient scheduled for EGD/colonoscopy today with Dr. Gann. Patient continues on IV lasix as well with cardiology following closely. Anticoagulation Xarelto on hold and patient is on cardizem. No reported chest pain. Afebrile. 06/02/2021 Patient is seen and evaluated in follow up and is being closely monitored by multiple medical consultations including pulmonary and nephrology. Cardiology evaluated the patient and will sign off and has resumed xarelto. No further bleeding noted s/p colonoscopy. Hemoglobin today is 7.9. Urinalysis done which will order culture as it is positive. Attempted ultrasound to evaluate the kidneys unable to be done due to body habitus. Nephrology following and will initiate IV lasix 40mg daily for volume overload. Kidney functions worsening. Social work consult placed for possible ECF placement as patient continues to be weak. 06/03/2021 Patient is seen this morning lethargic although arousable. Patient continues to be weak and being closely followed by nephrology. Patient has been started on IV Lasix for extensive volume overload and creatinine continues to trend up and is currently 3.59 today. Urinalysis is positive and awaiting cultures. Blood cultures remain negative. Continue with Rocephin while awaiting for cultures are finalized. Patient's blood pressures on the lower side and nephrology has started midodrine and will continue to monitor closely. Insert indwelling Vásquez catheter for retention. Patient denies any bleeding noted and has been resumed on Xarelto and will continue to monitor closely. 06/04/2021 Patient is seen and evaluated in follow-up this morning with no acute overnight issues noted. Nephrology following closely as kidney functions have worsened although slightly improved today with creatinine of 3.48 and BUN is 36. IV Lasix has been discontinued. Patient to continue with indwelling Vásquez catheter with good urine output and maintain on IV ceftriaxone while awaiting for cultu res to finalized. Preliminary cultures have been received and pending. Encouraged increased activity as tolerated and continue with PT/OT therapy daily. Labs: hgb is 7.9, WBC is 5.4., platelets 96, sodium is 136, potassium is 4.7, bun is 36, creatinine is 3.48 Review of systems: Constitutional: reports of fatigue, no reports of fever, or chills Cardiovascular: No reports of chest pain or palpitations Respiratory: No reports of shortness of breath or cough GI: No reports of nausea, vomiting, or diarrhea : Had some urinary retention and indwelling Vásquez catheter continued Neurovascular: Reports generalized weakness Active Medications Acetaminophen (Acetaminophen Tab 325 Mg Tab) 650 mg PO Q4HR PRN PRN Reason: Fever and/or Mild Pain Albuterol/Ipratropium (Ipratropium-Albuterol 3 Ml Neb) 3 ml INHALATION RT-TID [facility] Last Admin: 06/04/21 13:27 Dose: Not Given Documented by: Albuterol/Ipratropium (Ipratropium-Albuterol 3 Ml Neb) 3 ml INHALATION RT-Q2H P RN PRN Reason: Shortness Of Breath Or Wheezing Amiodarone HCl (Amiodarone 200 Mg Tab) 200 mg PO DAILY [facility] Last Admin: 06/04/21 09:12 Dose: 200 mg Documented by: Atorvastatin Calcium (Atorvastatin 20 Mg Tab) 20 mg PO HS [facility] Last Admin: 06/03/21 20:15 Dose: 20 mg Documented by: Carvedilol (Carvedilol 3.125 Mg Tab) 3.125 mg PO AC-BID [facility] Last Admin: 06/04/21 06:24 Dose: 3.125 mg Documented by: Clonazepam (Clonazepam 1 Mg Tab) 1 mg PO BID PRN PRN Reason: Anxiety Dorzolamide/Timolol (Dorzolamide-Timolol 2.23%/0.68 10ml Btl) 1 drops BOTH EYES BID [facility] Last Admin: 06/04/21 09:12 Dose: 1 drops Documented by: Ceftriaxone Sodium 2 gm/ (Sodium Chloride) 50 mls @ 100 mls/hr IVPB Q24H [facility] Last Admin: 06/04/21 09:11 Dose: 100 mls/hr Documented by: Latanoprost (Latanoprost 0.005% Ophth Drops 2.5 Ml Btl) 1 drops BOTH EYES HS [facility] Last Admin: 06/03/21 20:15 Dose: 1 drops Documented by: Midodrine (Midodrine 5 Mg Tab) 10 mg PO AC-TID [facility] Last Admin: 06/04/21 11:39 Dose: 10 mg Documented by: Naloxone HCl (Naloxone 0.4 Mg/Ml 1 Ml Vial) 0.2 mg IV Q2M PRN PRN Reason: Opioid Reversal Pantoprazole Sodium (Pantoprazole 40 Mg/10 Ml Vial) 40 mg IVP BID [facility] Last Admin: 06/04/21 09:12 Dose: 40 mg Documented by: Rivaroxaban (Rivaroxaban 15 Mg Tab) 15 mg PO W/SUPPER [facility]; Protocol Last Admin: 06/03/21 16:57 Dose: 15 mg Documented by: Tamsulosin HCl (Tamsulosin 0.4 Mg Cap.Er.24h) 0.4 mg PO PC-SUPPER [facility] Last Admin: 06/03/21 23:36 Dose: 0.4 mg Documented by: Trazodone HCl (Trazodone Hcl 100 Mg Tab) 100 mg PO HS PRN PRN Reason: Insomnia Physical Exam: GENERAL: The patient is alert and oriented x3, morbidly obese. Well developed, well nourished. More awake today. HEENT: Pupils are round and equally reacting to light. EOMI. No scleral icterus. No conjunctival pallor. Normocephalic, atraumatic. No pharyngeal erythema. No thyromegaly. CARDIOVASCULAR: S1 and S2 muffled PULMONARY: Diminished breath sounds bilaterally with some scattered rhonchi not ed. ABDOMEN: Soft, obese, nontender, nondistended, normoactive bowel sounds. No palpable organomegaly. MUSCULOSKELETAL: No joint swelling or deformity. EXTREMITIES: No cyanosis, clubbing, bilateral lower extremity edema noted NEUROLOGICAL: Gross neurological examination did not reveal any focal deficits. Diffusely weak SKIN: No rashes. no petechiae. 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 Acute myocardial unlikely per cardiology Hypoalbuminemia with mild protein calorie malnutrition GI prophylaxis: Protonix DVT prophylaxis: Xarelto Full code Plan: Recommend to continue current medications, management, and symptomatic treatment. Transfuse if less than 7. Patient is status post EGD and colonoscopy with no further bleeding noted. Xarelto has been resumed and cardiology signed off. Nephrology following and obtained urinalysis which is positive and will add urine culture. Urine culture has been received and is pending. Pathology from duodenum biopsy during EGD colonoscopy shows mild active duodenitis and also suggestive of peptic disease and will continue on Protonix. Patient denies any pain or burning with urination other was having some urinary retention and has indwelling Vásquez catheter with close monitoring of intake and output. Will continue Ceftriaxone while awaiting culture. REpeat am labs. Social work following for possible ECF as patient continues to be weak. Continue DVT and GI prophylaxis. Due to multiple complex medical issues, prognosis is guarded. Objective - Vital Signs Vital signs: Vital Signs Temp 97.5 F L 06/03/21 20:00 Pulse 70 06/04/21 08:56 Resp 18 06/04/21 04:00 BP 120/71 06/04/21 04:00 Pulse Ox 98 06/04/21 04:00 Intake & Output 06/03/21 06/04/21 06/04/21 18:59 06:59 18:59 Intake Total 360 200 Output Total 400 350 Balance -40 -350 200 Weight 199.5 kg Intake: Oral 360 200 Output: Urine 400 350 Other: Voiding Method Indwelling Catheter Indwelling Catheter - Labs CBC & Chem 7: 06/04/21 09:08 06/04/21 09:08 Labs: Abnormal Lab Results - Last 24 Hours (Table) 06/03/21 06/03/21 06/03/21 Range/Units 08:42 08:42 11:46 RBC 3.78 L (3.80-5.40) m/uL Hgb 7.6 L (11.4-16.0) gm/dL Hct 29.2 L (34.0-46.0) % MCV 77.3 L (80.0-100.0) fL MCH 20.3 L (25.0-35.0) pg MCHC 26.2 L (31.0-37.0) g/dL RDW 26.5 H (11.5-15.5) % Plt Count 86 L (150-450) k/uL Sodium 136 L (137-145) mmol/L BUN 34 H (7-17) mg/dL Creatinine 3.59 H (0.52-1.04) mg/dL Glucose 110 H (74-99) mg/dL POC Glucose (mg/dL) 114 H (75-99) mg/dL 06/03/21 06/03/21 06/04/21 Range/Units 16:37 20:13 06:06 RBC (3.80-5.40) m/uL Hgb (11.4-16.0) gm/dL Hct (34.0-46.0) % MCV (80.0-100.0) fL MCH (25.0-35.0) pg MCHC (31.0-37.0) g/dL RDW (11.5-15.5) % Plt Count (150-450) k/uL Sodium (137-145) mmol/L BUN (7-17) mg/dL Creatinine (0.52-1.04) mg/dL Glucose (74-99) mg/dL POC Glucose (mg/dL) 124 H 127 H 105 H (75-99) mg/dL Microbiology - Last 24 Hours (Table) 05/28/21 10:30 Blood Culture - Final Blood No Growth after 144 hours 05/28/21 10:15 Blood Culture - Final Blood No Growth after 144 hours 06/03/21 06:30 Urine Culture - Preliminary Urine,Clean Catch
[2021-06-04 14:54] LABS: Hypochromasia (M) Present
[2021-06-04 16:59] LABS: Glucose,Whole Blood 155 mg/dL (75-99)
[2021-06-04] MEDS: TAMSULOSIN 0.4 MG CAP.ER.24H PO SCH (17:43)
[2021-06-04] MEDS: RIVAROXABAN 15 MG TAB PO SCH (17:44)
[2021-06-04 20:00] LABS: Glucose,Whole Blood 149 mg/dL (75-99)
--- NOTE | 2021-06-04 20:11 | PN ---
PROGRESS NOTE Patient is seen for followup for acute kidney injury, mostly ATN, associated with some degree of hypotension, hypoperfusion as well as possible obstructive uropathy, currently with indwelling Vásquez catheter and maintained on midodrine. Renal function has been improving. On examination today, blood pressure was 96/59, heart rate 61 per minute. Patient is afebrile. EXAMINATION OF THE HEART: S1 and S2. EXAMINATION OF LUNGS: Decreased breath sounds at the bases. Abdomen is soft, morbidly obese. Examination of lower extremities shows edema 1+ bilaterally. BASIC COMBATANT SWIMMER EXAM: Grossly intact. Labs show sodium 136, potassium 4.7, chloride 107, BUN 36, creatinine 3.48, hemoglobin 7.9 g/dL. ASSESSMENT: 1. Acute kidney injury, acute tubular necrosis and possible obstructive uropathy; etiology ischemic ATN from hypotension, hypoperfusion as well as from severe anemia with hemoglobin at 5.8 on initial admission. Continue with the indwelling Vásquez catheter for now; 24-hour urine output is on the lower side. I will add a dose of IV Lasix tomorrow, depending on the 24-hour output from today. No nephrotoxic agents on board. Ultrasound could not be done secondary to severe obesity. 2. Cardiomyopathy, mostly diastolic dysfunction. 3. Chronic kidney disease, stage 3; previous creatinine 1.4 to 1.7 in July of 2020, possibly related to an episode of acute kidney injury. 4. Acute hypoxic respiratory failure secondary to congestive heart failure, mostly diastolic. 5. Chronic atrial fibrillation, maintained on Xarelto. 6. Morbid obesity. 7. Urinary tract infection with urine culture growing Gram-negative bacilli, maintained on ceftriaxone. PLAN: Continue with antibiotics. Possibly add Lasix in a.m. Continue with midodrine. MMODL / IJN: [id number] /
[2021-06-04] MEDS: ATORVASTATIN 20 MG TAB PO SCH (21:01)
[2021-06-04] MEDS: LATANOPROST 0.005% OPHTH DROPS 2.5 ML BTL BOTH EYES SCH (21:01)
[2021-06-05 06:06] LABS: Glucose,Whole Blood 107 mg/dL (75-99)
[2021-06-05] MEDS: MIDODRINE 5 MG TAB PO SCH ×3 (06:27→16:45)
[2021-06-05] MEDS: carvediloL 3.125 MG TAB PO SCH ×2 (06:27→16:45)
[2021-06-05] MEDS: IPRATROPIUM-ALBUTEROL 3 ML NEB INHALATION SCH ×3 (07:46→20:10)
[2021-06-05 10:02] LABS: Anisocytosis Marked; Basophils % (A) 0 %; Eosinophils # (A) 0.1 k/uL (0-0.7); Eosinophils % (A) 1 %; HCT 27.7 % (34.0-46.0); HGB 7.5 gm/dL (11.4-16.0); Hypochromasia Marked; Lymphocytes % (A) 18 %; MCH 20.7 pg (25.0-35.0); MCHC 27.2 g/dL (31.0-37.0); MCV 76.2 fL (80.0-100.0); Mean Platelet Volume 7.8; Microcytosis Marked; Monocytes # (A) 0.4 k/uL (0-1.0); Monocytes % (A) 8 %; Neutrophils % (A) 70 %; Poikilocytosis Marked; RBC 3.63 m/uL (3.80-5.40); WBC 5.6 k/uL (3.8-10.6)
[2021-06-05 10:06] LABS: Platelet Count 98 k/uL (150-450); RDW 26.2 % (11.5-15.5)
[2021-06-05] MEDS: PANTOPRAZOLE 40 MG TABLET PO SCH (10:07)
[2021-06-05] MEDS: AMIODARONE 200 MG TAB PO SCH (10:07)
[2021-06-05] MEDS: DORZOLAMIDE-TIMOLOL 2.23%/0.68 10ML BTL BOTH EYES SCH ×2 (10:08→21:19)
[2021-06-05 10:15] LABS: Calcium 8.8 mg/dL (8.4-10.2); Potassium 4.7 mmol/L (3.5-5.1)
[2021-06-05 11:36] LABS: Glucose,Whole Blood 90 mg/dL (75-99)
--- NOTE | 2021-06-05 12:37 | P.PN ---
Subjective Progress Note Date: 06/05/21 This is a pleasant 60 year old female who was recently admitted for atrial fibrillation with RVR and also found to have extremely low hemoglobin requiring transfusions. GI, cardiology, and pulmonary assistant media buyer following closely. Patient was briefly monitored in the ICU and currently on the selective unit with telemetry monitoring. Patient scheduled for EGD/colonoscopy today with Dr. Gann. Patient continues on IV lasix as well with cardiology following closely. Anticoagulation Xarelto on hold and patient is on cardizem. No reported chest pain. Afebrile. 06/02/2021 Patient is seen and evaluated in follow up and is being closely monitored by multiple medical consultations including pulmonary and nephrology. Cardiology evaluated the patient and will sign off and has resumed xarelto. No further bleeding noted s/p colonoscopy. Hemoglobin today is 7.9. Urinalysis done which will order culture as it is positive. Attempted ultrasound to evaluate the kidneys unable to be done due to body habitus. Nephrology following and will initiate IV lasix 40mg daily for volume overload. Kidney functions worsening. Social work consult placed for possible ECF placement as patient continues to be weak. 06/03/2021 Patient is seen this morning lethargic although arousable. Patient continues to be weak and being closely followed by nephrology. Patient has been started on IV Lasix for extensive volume overload and creatinine continues to trend up and is currently 3.59 today. Urinalysis is positive and awaiting cultures. Blood cultures remain negative. Continue with Rocephin while awaiting for cultures are finalized. Patient's blood pressures on the lower side and nephrology has started midodrine and will continue to monitor closely. Insert indwelling Vásquez catheter for retention. Patient denies any bleeding noted and has been resumed on Xarelto and will continue to monitor closely. 06/04/2021 Patient is seen and evaluated in follow-up this morning with no acute overnight issues noted. Nephrology following closely as kidney functions have worsened although slightly improved today with creatinine of 3.48 and BUN is 36. IV Lasix has been discontinued. Patient to continue with indwelling Vásquez catheter with good urine output and maintain on IV ceftriaxone while awaiting for cultu res to finalized. Preliminary cultures have been received and pending. Encouraged increased activity as tolerated and continue with PT/OT therapy daily. 06/05/2021 Patient is seen evaluated and follow-up this morning and nephrology following closely. Patient's kidney functions continue to be elevated although trending down slowly. Per nursing staff, patient continues with indwelling Vásquez ca theter and urine output is minimal and nephrology aware. Patient urine cultures finalized showing E. coli which is sensitive to ceftriaxone and will continue ceftriaxone at this time. she denies any chest pain. Patient is afebrile. patient with continued weakness and will continue with PT/OT therapy evaluation Labs: hgb is 7.5, WBC is 5.6., platelets 96, sodium is 137, potassium is 4.7, bun is 36, creatinine is 3.16 Review of systems: Constitutional: reports of fatigue, no reports of fever, or chills Cardiovascular: No reports of chest pain or palpitations Respiratory: No reports of shortness of breath or cough GI: No reports of nausea, vomiting, or diarrhea : Had some urinary retention and indwelling Vásquez catheter continued Neurovascular: Reports generalized weakness Active Medications Acetaminophen (Acetaminophen Tab 325 Mg Tab) 650 mg PO Q4HR PRN PRN Reason: Fever and/or Mild Pain Albuterol/Ipratropium (Ipratropium-Albuterol 3 Ml Neb) 3 ml INHALATION RT-TID [facility] Last Admin: 06/04/21 13:27 Dose: Not Given Documented by: Albuterol/Ipratropium (Ipratropium-Albuterol 3 Ml Neb) 3 ml INHALATION RT-Q2H PRN PRN Reason: Shortness Of Breath Or Wheezing Amiodarone HCl (Amiodarone 200 Mg Tab) 200 mg PO DAILY [facility] Last Admin: 06/04/21 09:12 Dose: 200 mg Documented by: Atorvastatin Calcium (Atorvastatin 20 Mg Tab) 20 mg PO HS [facility] Last Admin: 06/03/21 20:15 Dose: 20 mg Documented by: Carvedilol (Carvedilol 3.125 Mg Tab) 3.125 mg PO AC-BID [facility] Last Admin: 06/04/21 06:24 Dose: 3.125 mg Documented by: Clonazepam (Clonazepam 1 Mg Tab) 1 mg PO BID PRN PRN Reason: Anxiety Dorzolamide/Timolol (Dorzolamide-Timolol 2.23%/0.68 10ml Btl) 1 drops BOTH EYES BID [facility] Last Admin: 06/04/21 09:12 Dose: 1 drops Documented by: Ceftriaxone Sodium 2 gm/ (Sodium Chloride) 50 mls @ 100 mls/hr IVPB Q24H [facility] Last Admin: 06/04/21 09:11 Dose: 100 mls/hr Documented by: Latanoprost (Latanoprost 0.005% Ophth Drops 2.5 Ml Btl) 1 drops BOTH EYES HS [facility] Last Admin: 06/03/21 20:15 Dose: 1 drops Documented by: Midodrine (Midodrine 5 Mg Tab) 10 mg PO AC-TID [facility] Last Admin: 06/04/21 11:39 Dose: 10 mg Documented by: Naloxone HCl (Naloxone 0.4 Mg/Ml 1 Ml Vial) 0.2 mg IV Q2M PRN PRN Reason: Opioid Reversal Pantoprazole Sodium (Pantoprazole 40 Mg/10 Ml Vial) 40 mg IVP BID [facility] Last Admin: 06/04/21 09:12 Dose: 40 mg Documented by: Rivaroxaban (Rivaroxaban 15 Mg Tab) 15 mg PO W/SUPPER [facility]; Protocol Last Admin: 06/03/21 16:57 Dose: 15 mg Documented by: Tamsulosin HCl (Tamsulosin 0.4 Mg Cap.Er.24h) 0.4 mg PO PC-SUPPER [facility] Last Admin: 06/03/21 23:36 Dose: 0.4 mg Documented by: Trazodone HCl (Trazodone Hcl 100 Mg Tab) 100 mg PO HS PRN PRN Reason: Insomnia Physical Exam: GENERAL: The patient is alert and oriented x3, morbidly obese. Well developed, well nourished. HEENT: Pupils are round and equally reacting to light. EOMI. No scleral icterus. No conjunctival pallor. Normocephalic, atraumatic. No pharyngeal erythema. No thyromegaly. CARDIOVASCULAR: S1 and S2 muffled PULMONARY: Diminished breath sounds bilaterally with some scattered rhonchi noted. ABDOMEN: Soft, obese, nontender, nondistended, normoactive bowel sounds. No palpable organomegaly. MUSCULOSKELETAL: No joint swelling or deformity. EXTREMITIES: No cyanosis, clubbing, bilateral lower extremity edema noted NEUROLOGICAL: Gross neurological examination did not reveal any focal deficits. Diffusely weak SKIN: No rashes. no petechiae. Assessment: atrial fibrillation with RVR, present on admission Possible supraventricular tachycardia, present on admission acute urinary tract infection, culture showing E. 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 Acute myocardial unlikely per cardiology Hypoalbuminemia with mild protein calorie malnutrition GI prophylaxis: Protonix DVT prophylaxis: Xarelto Full code Plan: Recommend to continue current medications, management, and symptomatic treatment. Transfuse if less than 7. Patient is status post EGD and colonoscopy with no further bleeding noted. Xarelto has been resumed and cardiology signed off. Nephrology following and obtained urinalysis which is positive and cultures finalized showing E. coli and will continue with IV ceftriaxone as it is sensitive. continue indwelling Vásquez catheter with close monitoring of intake and output. REpeat am labs. Social work following for possible ECF as patient continues to be weak. Continue DVT and GI prophylaxis. Due to multiple complex medical issues, prognosis is guarded. Objective - Vital Signs Vital signs: Vital Signs Temp 97.8 F 06/05/21 04:00 Pulse 68 06/05/21 08:03 Resp 18 06/05/21 04:00 BP 101/52 06/05/21 04:00 Pulse Ox 100 06/05/21 04:00 Intake & Output 06/04/21 06/05/21 06/05/21 18:59 06:59 18:59 Intake Total 1180 240 Output Total 300 Balance 880 240 Weight 199.5 kg 199.1 kg Intake: Oral 1180 240 Output: Urine 300 Other: Voiding Method Indwelling Catheter Indwelling Catheter # Bowel Movements 0 - Labs CBC & Chem 7: 06/05/21 09:32 06/05/21 09:32 Labs: Abnormal Lab Results - Last 24 Hours (Table) 06/04/21 06/04/21 06/04/21 Range/Units 09:08 09:08 11:32 Hgb 7.9 L (11.4-16.0) gm/dL Hct 29.9 L (34.0-46.0) % MCV 77.9 L (80.0-100.0) fL MCH 20.7 L (25.0-35.0) pg MCHC 26.6 L (31.0-37.0) g/dL RDW 26.1 H (11.5-15.5) % Plt Count 96 L (150-450) k/uL Sodium 136 L (137-145) mmol/L BUN 36 H (7-17) mg/dL Creatinine 3.48 H (0.52-1.04) mg/dL Glucose 120 H (74-99) mg/dL POC Glucose (mg/dL) 152 H (75-99) mg/dL 06/04/21 06/04/21 06/05/21 Range/Units 16:46 19:57 06:04 Hgb (11.4-16.0) gm/dL Hct (34.0-46.0) % MCV (80.0-100.0) fL MCH (25.0-35.0) pg MCHC (31.0-37.0) g/dL RDW (11.5-15.5) % Plt Count (150-450) k/uL Sodium (137-145) mmol/L BUN (7-17) mg/dL Creatinine (0.52-1.04) mg/dL Glucose (74-99) mg/dL POC Glucose (mg/dL) 155 H 149 H 107 H (75-99) mg/dL Microbiology - Last 24 Hours (Table) 06/03/21 06:30 Urine Culture - Preliminary Urine,Clean Catch Gram Neg Bacilli
--- NOTE | 2021-06-05 13:20 | PN ---
PROGRESS NOTE Patient is seen for followup for acute kidney injury. Her renal function seems to be slowly improving. Patient has an indwelling Vásquez catheter. Blood pressures are better. Patient is not on any diuretics currently. PHYSICAL EXAMINATION: On examination today, blood pressure 107/55, heart rate 57 per minute, she is afebrile. Examination of the heart S1, S2. Examination of the lungs, bilateral breath sounds are heard. Decreased breath sounds at the bases. Abdomen is soft, morbidly obese. Examination lower extremities shows edema 1+ bilaterally with chronic skin changes. DIRECT MARKETING MANAGER exam grossly intact. LAB: Show serum sodium 137, potassium 4.7, BUN 36, creatinine 3.1, hemoglobin 7.5 g/dL. ASSESSMENT: 1. Acute kidney injury, multifactorial, including ATN secondary to hypotension, severe anemia and possible obstructive uropathy currently with indwelling Vásquez catheter. The patient's renal function has been improving. She is not on any diuretics and her blood pressure is slightly improved. She is maintained on midodrine which we will continue for now. 2. Possible obstructive uropathy. Continue with the Vásquez catheter. 3. Cardiomyopathy, mostly diastolic dysfunction. 4. Chronic kidney disease stage 3, previous creatinine 1.4-1.7 in July 2020 with possible episode of acute kidney injury again at that time. 5. Chronic atrial fibrillation maintained on Xarelto, rate is controlled. 6. Urinary tract infection with urine cultures growing Gram-negative bacilli, maintained on ceftriaxone. 7. Hypotension maintained on midodrine. Cortisol level is not available. I when order a serum cortisol level. PLAN: Continue midodrine. Check random cortisol level. Continue antibiotics. Continue with the Vásquez catheter. MMODL / IJN: [id number] /
[2021-06-05] MEDS: RIVAROXABAN 15 MG TAB PO SCH (16:45)
[2021-06-05] MEDS: TAMSULOSIN 0.4 MG CAP.ER.24H PO SCH (16:45)
[2021-06-05 16:49] LABS: Glucose,Whole Blood 142 mg/dL (75-99)
[2021-06-05 20:26] LABS: Glucose,Whole Blood 148 mg/dL (75-99)
[2021-06-05] MEDS: ATORVASTATIN 20 MG TAB PO SCH (21:18)
[2021-06-05] MEDS: LATANOPROST 0.005% OPHTH DROPS 2.5 ML BTL BOTH EYES SCH (21:19)
[2021-06-06 06:05] LABS: Glucose,Whole Blood 123 mg/dL (75-99)
[2021-06-06] MEDS: MIDODRINE 5 MG TAB PO SCH ×3 (06:52→17:29)
[2021-06-06] MEDS: PANTOPRAZOLE 40 MG TABLET PO SCH (06:52)
[2021-06-06] MEDS: carvediloL 3.125 MG TAB PO SCH ×2 (06:52→17:29)
[2021-06-06] MEDS: IPRATROPIUM-ALBUTEROL 3 ML NEB INHALATION SCH ×3 (07:24→21:09)
[2021-06-06] MEDS: AMIODARONE 200 MG TAB PO SCH (09:27)
[2021-06-06] MEDS: DORZOLAMIDE-TIMOLOL 2.23%/0.68 10ML BTL BOTH EYES SCH ×2 (09:27→20:12)
[2021-06-06 10:03] LABS: Calcium 8.6 mg/dL (8.4-10.2)
[2021-06-06] MEDS ORDERED: FUROSEMIDE 10 MG/ML 4 ML VIAL IV STA (11:09)
[2021-06-06 11:48] LABS: Glucose,Whole Blood 153 mg/dL (75-99)
--- NOTE | 2021-06-06 15:28 | P.PN ---
Subjective Progress Note Date: 06/06/21 This is a pleasant 60 year old female who was recently admitted for atrial fibrillation with RVR and also found to have extremely low hemoglobin requiring transfusions. GI, cardiology, and pulmonary dairy worker following closely. Patient was briefly monitored in the ICU and currently on the selective unit with telemetry monitoring. Patient scheduled for EGD/colonoscopy today with Dr. Gann. Patient continues on IV lasix as well with cardiology following closely. Anticoagulation Xarelto on hold and patient is on cardizem. No reported chest pain. Afebrile. 06/02/2021 Patient is seen and evaluated in follow up and is being closely monitored by multiple medical consultations including pulmonary and nephrology. Cardiology evaluated the patient and will sign off and has resumed xarelto. No further bleeding noted s/p colonoscopy. Hemoglobin today is 7.9. Urinalysis done which will order culture as it is positive. Attempted ultrasound to evaluate the kidneys unable to be done due to body habitus. Nephrology following and will initiate IV lasix 40mg daily for volume overload. Kidney functions worsening. Social work consult placed for possible ECF placement as patient continues to be weak. 06/03/2021 Patient is seen this morning lethargic although arousable. Patient continues to be weak and being closely followed by nephrology. Patient has been started on IV Lasix for extensive volume overload and creatinine continues to trend up and is currently 3.59 today. Urinalysis is positive and awaiting cultures. Blood cultures remain negative. Continue with Rocephin while awaiting for cultures are finalized. Patient's blood pressures on the lower side and nephrology has started midodrine and will continue to monitor closely. Insert indwelling Vásquez catheter for retention. Patient denies any bleeding noted and has been resumed on Xarelto and will continue to monitor closely. 06/04/2021 Patient is seen and evaluated in follow-up this morning with no acute overnight issues noted. Nephrology following closely as kidney functions have worsened although slightly improved today with creatinine of 3.48 and BUN is 36. IV Lasix has been discontinued. Patient to continue with indwelling Vásquez catheter with good urine output and maintain on IV ceftriaxone while awaiting for cultu res to finalized. Preliminary cultures have been received and pending. Encouraged increased activity as tolerated and continue with PT/OT therapy daily. 06/05/2021 Patient is seen evaluated and follow-up this morning and nephrology following closely. Patient's kidney functions continue to be elevated although trending down slowly. Per nursing staff, patient continues with indwelling Vásquez ca theter and urine output is minimal and nephrology aware. Patient urine cultures finalized showing E. coli which is sensitive to ceftriaxone and will continue ceftriaxone at this time. she denies any chest pain. Patient is afebrile. patient with continued weakness and will continue with PT/OT therapy evaluation 06/06/2021 Patient is seen in follow-up this morning with no acute overnight issues. Patient is maintained on IV ceftriaxone for urinary tract infection with culture showing E. coli. Patient having some continued overload and will give a dose of IV Lasix and continue twice daily with close monitoring of kidney functions. Nephrology following closely and this was discussed with her in detail. Repeat labs in the morning and may likely continue with daily dosing of IV Lasix. will continue with indwelling Vásquez catheter. Labs: Sodium is 137, potassium is 5.0, bun is 38, creatinine is 3.06 Review of systems: Constitutional: reports of fatigue, no reports of fever, or chills Cardiovascular: No reports of chest pain or palpitations Respiratory: No reports of shortness of breath or cough GI: No reports of nausea, vomiting, or diarrhea : Had some urinary retention and indwelling Vásquez catheter continued Neurovascular: Reports generalized weakness Active Medications Acetaminophen (Acetaminophen Tab 325 Mg Tab) 650 mg PO Q4HR PRN PRN Reason: Fever and/or Mild Pain Albuterol/Ipratropium (Ipratropium-Albuterol 3 Ml Neb) 3 ml INHALATION RT-TID [facility] [place] Last Admin: 06/06/21 11:23 Dose: 3 ml Documented by: Albuterol/Ipratropium (Ipratropium-Albuterol 3 Ml Neb) 3 ml INHALATION RT-Q2H PRN PRN Reason: Shortness Of Breath Or Wheezing Amiodarone HCl (Amiodarone 200 Mg Tab) 200 mg PO DAILY [facility] [place] Last Admin: 06/06/21 09:27 Dose: 200 mg Documented by: Atorvastatin Calcium (Atorvastatin 20 Mg Tab) 20 mg PO HS [facility] [place] Last Admin: 06/05/21 21:18 Dose: 20 mg Documented by: Carvedilol (Carvedilol 3.125 Mg Tab) 3.125 mg PO AC-BID [facility] [place] Last Admin: 06/06/21 06:52 Dose: 3.125 mg Documented by: Clonazepam (Clonazepam 1 Mg Tab) 1 mg PO BID PRN PRN Reason: Anxiety Last Admin: 06/05/21 12:27 Dose: 1 mg Documented by: Dorzolamide/Timolol (Dorzolamide-Timolol 2.23%/0.68 10ml Btl) 1 drops BOTH EYES BID JASON Last Admin: 06/06/21 09:27 Dose: 1 drops Documented by: Furosemide (Furosemide 10 Mg/Ml 4 Ml Vial) 40 mg IV Q12HR JASON Ceftriaxone Sodium 2 gm/ (Sodium Chloride) 50 mls @ 100 mls/hr IVPB Q24H JASON Last Admin: 06/06/21 09:26 Dose: 100 mls/hr Documented by: Latanoprost (Latanoprost 0.005% Ophth Drops 2.5 Ml Btl) 1 drops BOTH EYES HS [facility] [place] Last Admin: 06/05/21 21:19 Dose: 1 drops Documented by: Midodrine (Midodrine 5 Mg Tab) 10 mg PO AC-TID [facility] [place] Last Admin: 06/06/21 12:28 Dose: 10 mg Documented by: Naloxone HCl (Naloxone 0.4 Mg/Ml 1 Ml Vial) 0.2 mg IV Q2M PRN PRN Reason: Opioid Reversal Pantoprazole Sodium (Pantoprazole 40 Mg Tablet) 40 mg PO AC-BRKFST [facility] [place] Last Admin: 06/06/21 06:52 Dose: 40 mg Documented by: Rivaroxaban (Rivaroxaban 15 Mg Tab) 15 mg PO W/SUPPER JASON; Protocol Last Admin: 06/05/21 16:45 Dose: 15 mg Documented by: Tamsulosin HCl (Tamsulosin 0.4 Mg Cap.Er.24h) 0.4 mg PO PC-SUPPER [facility] [place] Last Admin: 06/05/21 16:45 Dose: 0.4 mg Documented by: Trazodone HCl (Trazodone Hcl 100 Mg Tab) 100 mg PO HS PRN PRN Reason: Insomnia Last Admin: 06/04/21 21:01 Dose: 100 mg Documented by: Physical Exam: GENERAL: The patient is alert and oriented x3, morbidly obese. Well developed, well nourished. HEENT: Pupils are round and equally reacting to light. EOMI. No scleral icterus. No conjunctival pallor. Normocephalic, atraumatic. No pharyngeal erythema. No thyromegaly. CARDIOVASCULAR: S1 and S2 muffled PULMONARY: Diminished breath sounds bilaterally with some scattered rhonchi noted. ABDOMEN: Soft, obese, nontender, nondistended, normoactive bowel sounds. No palpable organomegaly. MUSCULOSKELETAL: No joint swelling or deformity. EXTREMITIES: No cyanosis, clubbing, bilateral lower extremity edema noted NEUROLOGICAL: Gross neurological examination did not reveal any focal deficits. Diffusely weak SKIN: No rashes. no petechiae. Assessment: atrial fibrillation with RVR, present on admission Possible supraventricular tachycardia, present on admission acute urinary tract infection, culture showing E. 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 Acute myocardial unlikely per cardiology Hypoalbuminemia with mild protein calorie malnutrition GI prophylaxis: Protonix DVT prophylaxis: Xarelto Full code Plan: Recommend to continue current medications, management, and symptomatic treatment. Transfuse if less than 7. Patient is status post EGD and colonoscopy with no further bleeding noted. Xarelto has been resumed and cardiology signed off. Nephrology following and patient having some intermittent periods of shortness of breath and will give a dose of IV Lasix every 12 hours and repeat a.m. labs and possibly continue IV Lasix 40 mg daily if kidney functions are stable. continue indwelling Vásquez catheter with close monitoring of intake and output. REpeat am labs. Social work following as patient will be going to ECF once stabilized. continue IV ceftriaxone as cultures did finalized showing E. coli. Continue DVT and GI prophylaxis. Due to multiple complex medical issues, prognosis is guarded. Objective - Vital Signs Vital signs: Vital Signs Temp 97.8 F 06/06/21 04:00 Pulse 64 06/06/21 07:35 Resp 18 06/06/21 04:00 BP 100/54 06/06/21 04:00 Pulse Ox 98 06/06/21 04:00 Intake & Output 06/05/21 06/06/21 06/06/21 18:59 06:59 18:59 Intake Total 1320 180 Output Total 550 350 Balance 770 -350 180 Weight 199.1 kg 205.9 kg Intake: Oral 1320 180 Output: Urine 550 350 Other: Voiding Method Indwelling Catheter Indwelling Catheter # Voids 0 # Bowel Movements 0 - Labs CBC & Chem 7: 06/05/21 09:32 06/06/21 09:00 Labs: Abnormal Lab Results - Last 24 Hours (Table) 06/05/21 06/05/21 06/05/21 Range/Units 09:32 09:32 16:47 RBC 3.63 L (3.80-5.40) m/uL Hgb 7.5 L (11.4-16.0) gm/dL Hct 27.7 L (34.0-46.0) % MCV 76.2 L (80.0-100.0) fL MCH 20.7 L (25.0-35.0) pg MCHC 27.2 L (31.0-37.0) g/dL RDW 26.2 H (11.5-15.5) % Plt Count 98 L (150-450) k/uL BUN 36 H (7-17) mg/dL Creatinine 3.16 H (0.52-1.04) mg/dL POC Glucose (mg/dL) 142 H (75-99) mg/dL 06/05/21 06/06/21 Range/Units 19:59 05:55 RBC (3.80-5.40) m/uL Hgb (11.4-16.0) gm/dL Hct (34.0-46.0) % MCV (80.0-100.0) fL MCH (25.0-35.0) pg MCHC (31.0-37.0) g/dL RDW (11.5-15.5) % Plt Count (150-450) k/uL BUN (7-17) mg/dL Creatinine (0.52-1.04) mg/dL POC Glucose (mg/dL) 148 H 123 H (75-99) mg/dL Microbiology - Last 24 Hours (Table) 06/03/21 06:30 Urine Culture - Final Urine,Clean Catch Escherichia coli
[2021-06-06 16:47] LABS: Glucose,Whole Blood 127 mg/dL (75-99)
[2021-06-06] MEDS: TAMSULOSIN 0.4 MG CAP.ER.24H PO SCH (17:29)
[2021-06-06] MEDS: RIVAROXABAN 15 MG TAB PO SCH (17:29)
[2021-06-06 19:59] LABS: Glucose,Whole Blood 123 mg/dL (75-99)
[2021-06-06] MEDS: LATANOPROST 0.005% OPHTH DROPS 2.5 ML BTL BOTH EYES SCH (20:12)
[2021-06-06] MEDS: ATORVASTATIN 20 MG TAB PO SCH (20:12)
[2021-06-06] MEDS: FUROSEMIDE 10 MG/ML 4 ML VIAL IV SCH (20:13)
--- NOTE | 2021-06-06 20:23 | PN ---
PROGRESS NOTE Patient is seen for followup for acute kidney injury, mostly ATN associated with hypotension, hypoperfusion and possible component of obstructive uropathy, currently with indwelling Vásquez catheter. Serum creatinine is slowly improving. Patient's diuretics were held. However, she is volume-overloaded and she will be started on IV Lasix. No significant complaints today. On examination, blood pressure this morning 101/65, heart rate 59 per minute. She is afebrile. EXAMINATION OF THE HEART: S1 and S2. EXAMINATION OF LUNGS: Bilateral breath sounds are heard. Decreased breath sounds at the bases. Abdomen is soft, morbidly obese. Examination of lower extremities shows chronic edema, chronic skin changes. EMT I/99 EXAM: Grossly intact. Labs show sodium 136, potassium 5.0, chloride 108, BUN 38, creatinine 3.06. ASSESSMENT: 1. Acute kidney injury, acute tubular necrosis versus obstructive uropathy, currently with indwelling Vásquez catheter. Ultrasound could not be done due to morbid obesity and significant abdominal wall edema. Patient is volume-overloaded. I will start her on IV Lasix and repeat labs in a.m. Continue with the Vásquez catheter for now. 2. Chronic kidney disease, stage 3. Previous creatinine 1.4 to 1.7 in July of 2020 with possible episode of acute kidney injury again at that time. 3. Chronic atrial fibrillation, maintained on Xarelto. Rate is controlled. 4. Urinary tract infection with urine cultures growing Gram-negative bacilli, maintained on ceftriaxone. 5. Hypotension, maintained on midodrine. Etiology likely secondary to underlying infection and cardiorenal syndrome. 6. Cardiomyopathy, mostly diastolic dysfunction. 7. Morbid obesity. PLAN: Continue with Vásquez catheter. Add IV Lasix. Repeat labs in a.m. Patient will need to be discharged on higher dose of Lasix. She was taking 20 mg daily. She will need at least 40 mg b.i.d. or daily, depending on her volume status at the time of discharge. We could also use long-acting loop diuretics like torsemide, which would be ideal. MMODL / IJN: [id number] /
[2021-06-07 06:15] LABS: Glucose,Whole Blood 104 mg/dL (75-99)
[2021-06-07] MEDS: carvediloL 3.125 MG TAB PO SCH ×2 (06:26→17:17)
[2021-06-07] MEDS: MIDODRINE 5 MG TAB PO SCH ×3 (06:26→17:17)
[2021-06-07] MEDS: PANTOPRAZOLE 40 MG TABLET PO SCH (06:26)
[2021-06-07 08:08] LABS: Anisocytosis Marked; Basophils % (A) 0 %; Eosinophils % (A) 1 %; HCT 27.3 % (34.0-46.0); HGB 7.3 gm/dL (11.4-16.0); Hypochromasia Marked; Lymphocytes # (A) 1.1 k/uL (1.0-4.8); Lymphocytes % (A) 18 %; MCH 20.9 pg (25.0-35.0); MCHC 26.8 g/dL (31.0-37.0); MCV 77.9 fL (80.0-100.0); Mean Platelet Volume 9.4; Microcytosis Marked; Monocytes # (A) 0.6 k/uL (0-1.0); Monocytes % (A) 9 %; Neutrophils # (A) 4.3 k/uL (1.3-7.7); Neutrophils % (A) 70 %; Platelet Count 106 k/uL (150-450); Poikilocytosis Moderate; WBC 6.2 k/uL (3.8-10.6)
[2021-06-07] MEDS: IPRATROPIUM-ALBUTEROL 3 ML NEB INHALATION SCH ×3 (08:12→19:58)
[2021-06-07 08:18] LABS: RDW 26.5 % (11.5-15.5)
[2021-06-07] MEDS: AMIODARONE 200 MG TAB PO SCH (08:34)
[2021-06-07] MEDS: FUROSEMIDE 10 MG/ML 4 ML VIAL IV SCH ×2 (08:34→20:19)
[2021-06-07] MEDS: DORZOLAMIDE-TIMOLOL 2.23%/0.68 10ML BTL BOTH EYES SCH ×2 (08:35→20:19)
[2021-06-07 09:14] LABS: Potassium 5.1 mmol/L (3.5-5.1)
[2021-06-07 09:15] LABS: Calcium 8.7 mg/dL (8.4-10.2); Magnesium 2.1 mg/dL (1.6-2.3)
[2021-06-07 10:19] LABS: RBC Fragments Present
[2021-06-07 11:46] LABS: Glucose,Whole Blood 210 mg/dL (75-99)
--- NOTE | 2021-06-07 13:59 | P.PN ---
Subjective This is a pleasant 60 year old -[place] female who was recently admitted for atrial fibrillation with RVR and also found to have extremely low hemoglobin requiring transfusions. 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 Patient was briefly monitored in the ICU and currently on the selective unit with telemetry monitoring. Patient scheduled for EGD/colonoscopy today with Dr. Gann. Patient continues on IV lasix as well with cardiology following closely. Anticoagulation Xarelto on hold and patient is on cardizem. No reported chest pain. Afebrile. 06/02/2021 Patient is seen and evaluated in follow up and is being closely monitored by multiple medical consultations including pulmonary and nephrology. Cardiology ev aluated the patient and will sign off and has resumed xarelto. No further bleeding noted s/p colonoscopy. Hemoglobin today is 7.9. Urinalysis done which will order culture as it is positive. Attempted ultrasound to evaluate the kidneys unable to be done due to body habitus. Nephrology following and will initiate IV lasix 40mg daily for volume overload. Kidney functions worsening. Social work consult placed for possible ECF placement as patient continues to be weak. 06/03/2021 Patient is seen this morning lethargic although arousable. Patient continues to be weak and being closely followed by nephrology. Patient has been started on IV Lasix for extensive volume overload and creatinine continues to trend up and is currently 3.59 today. Urinalysis is positive and awaiting cultures. Blood cultures remain negative. Continue with Rocephin while awaiting for cultures are finalized. Patient's blood pressures on the lower side and nephrology has started midodrine and will continue to monitor closely. Insert indwelling Vásquez catheter for retention. Patient denies any bleeding noted and has been resumed on Xarelto and will continue to monitor closely. 06/04/2021 Patient is seen and evaluated in follow-up this morning with no acute overnight issues noted. Nephrology following closely as kidney functions have worsened although slightly improved today with creatinine of 3.48 and BUN is 36. IV Lasix has been discontinued. Patient to continue with indwelling Vásquez catheter with good urine output and maintain on IV ceftriaxone while awaiting for cultures to finalized. Preliminary cultures have been received and pending. Encouraged increased activity as tolerated and continue with PT/OT therapy daily. 06/05/2021 Patient is seen evaluated and follow-up this morning and nephrology following closely. Patient's kidney functions continue to be elevated although trending d own slowly. Per nursing staff, patient continues with indwelling Vásquez catheter and urine output is minimal and nephrology aware. Patient urine cultures finalized showing E. coli which is sensitive to ceftriaxone and will continue ceftriaxone at this time. she denies any chest pain. Patient is afebrile. patient with continued weakness and will continue with PT/OT therapy evaluation 06/06/2021 Patient is seen in follow-up this morning with no acute overnight issues. Patient is maintained on IV ceftriaxone for urinary tract infection with culture showing E. coli. Patient having some continued overload and will give a dose of IV Lasix and continue twice daily with close monitoring of kidney functions. Nephrology following closely and this was discussed with her in detail. Repeat labs in the morning and may likely continue with daily dosing of IV Lasix. will continue with indwelling Vásquez catheter. 06/07/2021 Patient states in bed most of the time. She is not moving out of bed. She is not complaining of from dyspnea while at rest but looks swollen and fluid overloaded. Patient is sleepy somewhat at times most likely related to her sleep apnea. She is on CPAP at night and she does not bring it yet. Yesterday patient was restarted on Lasix and her creatinine trending down to 2.7 today. Blood pressure is low normal since admission and currently 91/53. Platelet is 106. Hemoglobin was 7.5 yesterday and today 7.3 we'll keep monitoring. Keep holding lisinopril and Lasix. She is currently on ceftriaxone, Xarelto 15 mg Objective - Vital Signs Vital signs: Vital Signs Temp 97.7 F 06/07/21 08:31 Pulse 72 06/07/21 11:29 Resp 18 06/07/21 11:25 BP 91/53 06/07/21 11:25 Pulse Ox 98 06/07/21 11:25 Intake & Output 06/06/21 06/07/21 06/07/21 18:59 06:59 18:59 Intake Total 540 10 360 Output Total 950 560 Balance -410 -550 360 Weight 207.1 kg Intake: IV 10 Invasive Line 5 10 Oral 540 360 Output: Urine 950 560 Other: Voiding Method Indwelling Catheter Indwelling Catheter Indwelling Catheter - Exam -GENERAL: The patient is alert and oriented x3, morbidly obese. Morbidly obese, sitting in bed most of the time HEENT: Pupils are round and equally reacting to light. EOMI. No scleral icterus. No conjunctival pallor. Normocephalic, atraumatic. No pharyngeal erythema. No th yromegaly. CARDIOVASCULAR: S1 and S2 present. No murmurs, rubs, or gallops. PULMONARY: Chest is clear to auscultation, no wheezing or crackles. -ABDOMEN: Soft, nontender, nondistended, normoactive bowel sounds. No palpable organomegaly. Vásquez catheter is in place MUSCULOSKELETAL: No joint swelling or deformity. EXTREMITIES: No cyanosis, clubbing, or pedal edema. NEUROLOGICAL: Gross neurological examination did not reveal any focal deficits. SKIN: No rashes. no petechiae. - Labs CBC & Chem 7: 06/07/21 07:48 06/07/21 07:48 Labs: Abnormal Lab Results - Last 24 Hours (Table) 06/06/21 06/06/21 06/07/21 Range/Units 16:45 19:57 06:13 RBC (3.80-5.40) m/uL Hgb (11.4-16.0) gm/dL Hct (34.0-46.0) % MCV (80.0-100.0) fL MCH (25.0-35.0) pg MCHC (31.0-37.0) g/dL RDW (11.5-15.5) % Plt Count (150-450) k/uL Sodium (137-145) mmol/L Chloride (98-107) mmol/L BUN (7-17) mg/dL Creatinine (0.52-1.04) mg/dL Glucose (74-99) mg/dL POC Glucose (mg/dL) 127 H 123 H 104 H (75-99) mg/dL 06/07/21 06/07/21 06/07/21 Range/Units 07:48 07:48 11:44 RBC 3.50 L (3.80-5.40) m/uL Hgb 7.3 L (11.4-16.0) gm/dL Hct 27.3 L (34.0-46.0) % MCV 77.9 L (80.0-100.0) fL MCH 20.9 L (25.0-35.0) pg MCHC 26.8 L (31.0-37.0) g/dL RDW 26.5 H (11.5-15.5) % Plt Count 106 L (150-450) k/uL Sodium 136 L (137-145) mmol/L Chloride 108 H (98-107) mmol/L BUN 38 H (7-17) mg/dL Creatinine 2.74 H (0.52-1.04) mg/dL Glucose 112 H (74-99) mg/dL POC Glucose (mg/dL) 210 H (75-99) mg/dL Assessment and Plan Assessment: Acute kidney injury Acute urinary tract infection secondary to E. coli which is sensitive to many antibiotics. Urinary retention, status post Vásquez catheter GI bleed on admission, currently hemoglobin is stable. She is status post EGD showing antral gastritis which is mild. And he denied this. No bleeding. Colonoscopy showing cecal AVM status post plasma coagulation and polypectomy of 2 rectal polyps. Chronic atrial fibrillation on xarelto Elevated troponin, noncardiac per cardiology team. Diastolic CHF with acute exacerbation on admission, it was resolved but needed to IV Lasix again. Ejection fraction 50-55% Morbidly obese with obstructive sleep apnea, CPAP machine at home, patient was advised to bring the machine and she agrees Plan: This is a pleasant 60 years old female who presents with cardiac, GI bleed and renal problems as above. With Vásquez catheter. Continue with ceftriaxone. Continue with IV Lasix per nephrology team on the case we'll monitor the patient closely. Monitor creatinine. Monitor hemoglobin, patient resumed Xarelto. Continue with Protonix. Labs and medication were reviewed.. Continue same treatment. Continue with symptomatic treatment. Resume home medication. Monitor lytes and vitals. DVT and GI prophylaxis. Further recommendationsas per clinical course of the patient DVT prophylaxis: Xarelto GI Prophylaxis: Ppi PT/OT: Recommends subacute rehab and patient agrees Prognosis is guarded
--- NOTE | 2021-06-07 15:10 | P.PN ---
Subjective Progress Note Date: 06/07/21 Follow-up for acute kidney injury. 1.5 L in the last 24 hours. Objective - Vital Signs Vital signs: Vital Signs Temp 97.7 F 06/07/21 08:31 Pulse 60 06/07/21 14:00 Resp 18 06/07/21 14:00 BP 91/53 06/07/21 11:25 Pulse Ox 98 06/07/21 11:25 Intake & Output 06/06/21 06/07/21 06/07/21 18:59 06:59 18:59 Intake Total 540 10 360 Output Total 950 560 700 Balance -410 -550 -340 Weight 207.1 kg Intake: IV 10 Invasive Line 5 10 Oral 540 360 Output: Urine 950 560 700 Other: Voiding Method Indwelling Catheter Indwelling Catheter Indwelling Catheter - Exam No acute distress S1-S2 heard Decreased breath sounds Edema - Labs CBC & Chem 7: 06/07/21 07:48 06/07/21 07:48 Labs: Abnormal Lab Results - Last 24 Hours (Table) 06/06/21 06/06/21 06/07/21 Range/Units 16:45 19:57 06:13 RBC (3.80-5.40) m/uL Hgb (11.4-16.0) gm/dL Hct (34.0-46.0) % MCV (80.0-100.0) fL MCH (25.0-35.0) pg MCHC (31.0-37.0) g/dL RDW (11.5-15.5) % Plt Count (150-450) k/uL Sodium (137-145) mmol/L Chloride (98-107) mmol/L BUN (7-17) mg/dL Creatinine (0.52-1.04) mg/dL Glucose (74-99) mg/dL POC Glucose (mg/dL) 127 H 123 H 104 H (75-99) mg/dL 06/07/21 06/07/21 06/07/21 Range/Units 07:48 07:48 11:44 RBC 3.50 L (3.80-5.40) m/uL Hgb 7.3 L (11.4-16.0) gm/dL Hct 27.3 L (34.0-46.0) % MCV 77.9 L (80.0-100.0) fL MCH 20.9 L (25.0-35.0) pg MCHC 26.8 L (31.0-37.0) g/dL RDW 26.5 H (11.5-15.5) % Plt Count 106 L (150-450) k/uL Sodium 136 L (137-145) mmol/L Chloride 108 H (98-107) mmol/L BUN 38 H (7-17) mg/dL Creatinine 2.74 H (0.52-1.04) mg/dL Glucose 112 H (74-99) mg/dL POC Glucose (mg/dL) 210 H (75-99) mg/dL Assessment and Plan Assessment: #1 acute kidney injury multifactorial. Hemodynamic ATN with low blood pressure, component of urinary retention. #2 CK D stage III with a baseline creatinine of 1.4-1.7 MG per DL. #3 A. fib with RVR on anticoagulation #4 urinary tract infection #5 hypotension on midodrine #6 cardiomyopathy with diastolic dysfunction #7 morbid obesity Plan: #1 renal function improving. #2 continue with midodrine. #3 consider changing carvedilol to metoprolol with low blood pressures as metoprolol has low antihypertensive effect #4 continue with Lasix #5 avoid nephrotoxic agents.
[2021-06-07 16:47] LABS: Glucose,Whole Blood 133 mg/dL (75-99)
[2021-06-07] MEDS: RIVAROXABAN 15 MG TAB PO SCH (17:17)
[2021-06-07] MEDS: TAMSULOSIN 0.4 MG CAP.ER.24H PO SCH (17:17)
[2021-06-07 20:18] LABS: Glucose,Whole Blood 128 mg/dL (75-99)
[2021-06-07] MEDS: ATORVASTATIN 20 MG TAB PO SCH (20:19)
[2021-06-07] MEDS: LATANOPROST 0.005% OPHTH DROPS 2.5 ML BTL BOTH EYES SCH (20:20)
[2021-06-08 06:17] LABS: Glucose,Whole Blood 125 mg/dL (75-99)
[2021-06-08] MEDS: MIDODRINE 5 MG TAB PO SCH ×3 (06:23→17:16)
[2021-06-08] MEDS: carvediloL 3.125 MG TAB PO SCH ×2 (06:23→17:16)
[2021-06-08] MEDS: PANTOPRAZOLE 40 MG TABLET PO SCH (06:23)
[2021-06-08] MEDS: IPRATROPIUM-ALBUTEROL 3 ML NEB INHALATION SCH ×3 (08:01→22:00)
[2021-06-08] MEDS: DORZOLAMIDE-TIMOLOL 2.23%/0.68 10ML BTL BOTH EYES SCH ×2 (08:57→20:51)
[2021-06-08] MEDS: AMIODARONE 200 MG TAB PO SCH (08:57)
[2021-06-08] MEDS: FUROSEMIDE 10 MG/ML 4 ML VIAL IV SCH ×2 (08:57→20:50)
[2021-06-08 09:21] LABS: Calcium 8.3 mg/dL (8.4-10.2); Magnesium 1.9 mg/dL (1.6-2.3); Potassium 4.8 mmol/L (3.5-5.1)
[2021-06-08 09:24] LABS: Anisocytosis Marked; Basophils % (A) 1 %; Eosinophils # (A) 0.1 k/uL (0-0.7); Eosinophils % (A) 1 %; HCT 26.1 % (34.0-46.0); HGB 7.2 gm/dL (11.4-16.0); Hypochromasia Marked; Lymphocytes # (A) 1.3 k/uL (1.0-4.8); Lymphocytes % (A) 19 %; MCH 20.9 pg (25.0-35.0); MCHC 27.5 g/dL (31.0-37.0); MCV 76.1 fL (80.0-100.0); Mean Platelet Volume 7.4; Microcytosis Marked; Monocytes # (A) 0.7 k/uL (0-1.0); Monocytes % (A) 11 %; Neutrophils # (A) 4.4 k/uL (1.3-7.7); Neutrophils % (A) 66 %; Platelet Count 147 k/uL (150-450); Poikilocytosis Moderate; RBC 3.43 m/uL (3.80-5.40); RDW 26.1 % (11.5-15.5); WBC 6.6 k/uL (3.8-10.6)
--- NOTE | 2021-06-08 09:47 | P.PN ---
Subjective Progress Note Date: 06/08/21 Follow-up for acute kidney injury. 1.5 L in the last 24 hours. Objective - Vital Signs Vital signs: Vital Signs Temp 97.4 F L 06/08/21 07:15 Pulse 72 06/08/21 08:11 Resp 18 06/08/21 07:15 BP 119/55 06/08/21 07:15 Pulse Ox 95 06/08/21 07:15 Intake & Output 06/07/21 06/08/21 06/08/21 18:59 06:59 18:59 Intake Total 360 280 Output Total 700 1600 Balance -340 -1320 Weight 205 kg Intake: IV 20 Invasive Line 5 20 Oral 360 260 Output: Urine 700 1600 Uretheral (Vásquez) 900 Other: Voiding Method Indwelling Catheter Indwelling Catheter - Exam No acute distress S1-S2 heard Decreased breath sounds Edema - Labs CBC & Chem 7: 06/08/21 08:21 06/08/21 08:21 Labs: Abnormal Lab Results - Last 24 Hours (Table) 06/07/21 06/07/21 06/07/21 Range/Units 11:44 16:44 20:15 RBC (3.80-5.40) m/uL Hgb (11.4-16.0) gm/dL Hct (34.0-46.0) % MCV (80.0-100.0) fL MCH (25.0-35.0) pg MCHC (31.0-37.0) g/dL RDW (11.5-15.5) % Plt Count (150-450) k/uL BUN (7-17) mg/dL Creatinine (0.52-1.04) mg/dL Glucose (74-99) mg/dL POC Glucose (mg/dL) 210 H 133 H 128 H (75-99) mg/dL Calcium (8.4-10.2) mg/dL 06/08/21 06/08/21 06/08/21 Range/Units 06:12 08:21 08:21 RBC 3.43 L (3.80-5.40) m/uL Hgb 7.2 L (11.4-16.0) gm/dL Hct 26.1 L (34.0-46.0) % MCV 76.1 L (80.0-100.0) fL MCH 20.9 L (25.0-35.0) pg MCHC 27.5 L (31.0-37.0) g/dL RDW 26.1 H (11.5-15.5) % Plt Count 147 L (150-450) k/uL BUN 41 H (7-17) mg/dL Creatinine 2.52 H (0.52-1.04) mg/dL Glucose 103 H (74-99) mg/dL POC Glucose (mg/dL) 125 H (75-99) mg/dL Calcium 8.3 L (8.4-10.2) mg/dL Assessment and Plan Assessment: #1 acute kidney injury multifactorial. Hemodynamic ATN with low blood pressure and urinary retention #2 CK D stage III with a baseline creatinine of 1.4-1.7 MG per DL. #3 A. fib with RVR on anticoagulation #4 urinary tract infection #5 hypotension on midodrine #6 cardiomyopathy with diastolic dysfunction #7 morbid obesity Plan: #1 renal function improving. #2 continue with midodrine. #3 consider changing carvedilol to metoprolol with low blood pressures as metoprolol has low antihypertensive effect #4 continue with Lasix #5 avoid nephrotoxic agents.
[2021-06-08 11:59] LABS: Glucose,Whole Blood 114 mg/dL (75-99)
[2021-06-08 12:42] LABS: RBC Fragments Present
--- NOTE | 2021-06-08 15:32 | P.PN ---
Subjective This is a pleasant 60 year old -[place] female who was recently admitted for atrial fibrillation with RVR and also found to have extremely low hemoglobin requiring transfusions. 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 Patient was briefly monitored in the ICU and currently on the selective unit with telemetry monitoring. Patient scheduled for EGD/colonoscopy today with Dr. Gann. Patient continues on IV lasix as well with cardiology following closely. Anticoagulation Xarelto on hold and patient is on cardizem. No reported chest pain. Afebrile. 06/02/2021 Patient is seen and evaluated in follow up and is being closely monitored by multiple medical consultations including pulmonary and nephrology. Cardiology ev aluated the patient and will sign off and has resumed xarelto. No further bleeding noted s/p colonoscopy. Hemoglobin today is 7.9. Urinalysis done which will order culture as it is positive. Attempted ultrasound to evaluate the kidneys unable to be done due to body habitus. Nephrology following and will initiate IV lasix 40mg daily for volume overload. Kidney functions worsening. Social work consult placed for possible ECF placement as patient continues to be weak. 06/03/2021 Patient is seen this morning lethargic although arousable. Patient continues to be weak and being closely followed by nephrology. Patient has been started on IV Lasix for extensive volume overload and creatinine continues to trend up and is currently 3.59 today. Urinalysis is positive and awaiting cultures. Blood cultures remain negative. Continue with Rocephin while awaiting for cultures are finalized. Patient's blood pressures on the lower side and nephrology has started midodrine and will continue to monitor closely. Insert indwelling Vásquez catheter for retention. Patient denies any bleeding noted and has been resumed on Xarelto and will continue to monitor closely. 06/04/2021 Patient is seen and evaluated in follow-up this morning with no acute overnight issues noted. Nephrology following closely as kidney functions have worsened although slightly improved today with creatinine of 3.48 and BUN is 36. IV Lasix has been discontinued. Patient to continue with indwelling Vásquez catheter with good urine output and maintain on IV ceftriaxone while awaiting for cultures to finalized. Preliminary cultures have been received and pending. Encouraged increased activity as tolerated and continue with PT/OT therapy daily. 06/05/2021 Patient is seen evaluated and follow-up this morning and nephrology following closely. Patient's kidney functions continue to be elevated although trending d own slowly. Per nursing staff, patient continues with indwelling Vásquez catheter and urine output is minimal and nephrology aware. Patient urine cultures finalized showing E. coli which is sensitive to ceftriaxone and will continue ceftriaxone at this time. she denies any chest pain. Patient is afebrile. patient with continued weakness and will continue with PT/OT therapy evaluation 06/06/2021 Patient is seen in follow-up this morning with no acute overnight issues. Patient is maintained on IV ceftriaxone for urinary tract infection with culture showing E. coli. Patient having some continued overload and will give a dose of IV Lasix and continue twice daily with close monitoring of kidney functions. Nephrology following closely and this was discussed with her in detail. Repeat labs in the morning and may likely continue with daily dosing of IV Lasix. will continue with indwelling Vásquez catheter. 06/07/2021 Patient states in bed most of the time. She is not moving out of bed. She is not complaining of from dyspnea while at rest but looks swollen and fluid overloaded. Patient is sleepy somewhat at times most likely related to her sleep apnea. She is on CPAP at night and she does not bring it yet. Yesterday patient was restarted on Lasix and her creatinine trending down to 2.7 today. Blood pressure is low normal since admission and currently 91/53. Platelet is 106. Hemoglobin was 7.5 yesterday and today 7.3 we'll keep monitoring. Keep holding lisinopril and Lasix. She is currently on ceftriaxone, Xarelto 15 mg 06/08/2021 Patient with fluid overload secondary to diastolic CHF with ejection fraction of 50-55% and she is responding to IV Lasix, acute kidney injury is improving and creatinine down to 2.5. Hemoglobin 7.2, platelets 147. Blood pressure significantly improved 128/60. CPAP at night She remains on IV Lasix 40 mg twice daily. Also she remains on ceftriaxone for UTI. Tomorrow his last dose. Repeat UA is ordered Patient presents with GI bleed, endoscopy showing AV malformation and polyps status post polypectomy at plasma coagulation. Xarelto resumed. Patient is agreeable to rehab upon discharge Objective - Vital Signs Vital signs: Vital Signs Temp 97.4 F L 06/08/21 07:15 Pulse 68 06/08/21 13:20 Resp 18 06/08/21 13:20 BP 128/60 06/08/21 11:20 Pulse Ox 96 06/08/21 11:20 Intake & Output 06/07/21 06/08/21 06/08/21 18:59 06:59 18:59 Intake Total 360 280 240 Output Total 700 1600 1200 Balance -340 -1320 -960 Weight 205 kg Intake: IV 20 Invasive Line 5 20 Oral 360 260 240 Output: Urine 700 1600 1200 Uretheral (Vásquez) 900 1200 Other: Voiding Method Indwelling Catheter Indwelling Catheter Indwelling Catheter - Exam -GENERAL: The patient is alert and oriented x3, morbidly obese. Morbidly obese, sitting in bed most of the time HEENT: Pupils are round and equally reacting to light. EOMI. No scleral icterus. No conjunctival pallor. Normocephalic, atraumatic. No pharyngeal erythema. No thyromegaly. CARDIOVASCULAR: S1 and S2 present. No murmurs, rubs, or gallops. PULMONARY: Chest is clear to auscultation, no wheezing or crackles. -ABDOMEN: Soft, nontender, nondistended, normoactive bowel sounds. No palpable organomegaly. Vásquez catheter is in place MUSCULOSKELETAL: No joint swelling or deformity. EXTREMITIES: No cyanosis, clubbing, or pedal edema. NEUROLOGICAL: Gross neurological examination did not reveal any focal deficits. SKIN: No rashes. no petechiae. - Labs CBC & Chem 7: 06/08/21 08:21 06/08/21 08:21 Labs: Abnormal Lab Results - Last 24 Hours (Table) 06/07/21 06/07/21 06/08/21 Range/Units 16:44 20:15 06:12 RBC (3.80-5.40) m/uL Hgb (11.4-16.0) gm/dL Hct (34.0-46.0) % MCV (80.0-100.0) fL MCH (25.0-35.0) pg MCHC (31.0-37.0) g/dL RDW (11.5-15.5) % Plt Count (150-450) k/uL BUN (7-17) mg/dL Creatinine (0.52-1.04) mg/dL Glucose (74-99) mg/dL POC Glucose (mg/dL) 133 H 128 H 125 H (75-99) mg/dL Calcium (8.4-10.2) mg/dL 06/08/21 06/08/21 06/08/21 Range/Units 08:21 08:21 11:57 RBC 3.43 L (3.80-5.40) m/uL Hgb 7.2 L (11.4-16.0) gm/dL Hct 26.1 L (34.0-46.0) % MCV 76.1 L (80.0-100.0) fL MCH 20.9 L (25.0-35.0) pg MCHC 27.5 L (31.0-37.0) g/dL RDW 26.1 H (11.5-15.5) % Plt Count 147 L (150-450) k/uL BUN 41 H (7-17) mg/dL Creatinine 2.52 H (0.52-1.04) mg/dL Glucose 103 H (74-99) mg/dL POC Glucose (mg/dL) 114 H (75-99) mg/dL Calcium 8.3 L (8.4-10.2) mg/dL Assessment and Plan Assessment: Acute kidney injury Acute urinary tract infection secondary to E. coli which is sensitive to many antibiotics. Urinary retention, status post Vásquez catheter GI bleed on admission, currently hemoglobin is stable. She is status post EGD showing antral gastritis which is mild. And he denied this. No bleeding. Colonoscopy showing cecal AVM status post plasma coagulation and polypectomy of 2 rectal polyps. Chronic atrial fibrillation on xarelto Elevated troponin, noncardiac per cardiology team. Diastolic CHF with acute exacerbation on admission, it was resolved but needed to IV Lasix again. Ejection fraction 50-55% Morbidly obese with obstructive sleep apnea, CPAP machine at home, patient was advised to bring the machine and she agrees Plan: This is a pleasant 60 years old female who presents with cardiac, GI bleed and renal problems as above. With Vásquez catheter. Continue with ceftriaxone. Continue with IV Lasix per nephrology team on the case we'll monitor the patient closely. Monitor creatinine. Monitor hemoglobin, patient resumed Xarelto. Continue with Protonix. Labs and medication were reviewed.. Continue same treatment. Continue with symptomatic treatment. Resume home medication. Monitor lytes and vitals. DVT and GI prophylaxis. Further recommendationsas per clinical course of the patient DVT prophylaxis: Xarelto GI Prophylaxis: Ppi PT/OT: Recommends subacute rehab and patient agrees Prognosis is guarded
[2021-06-08 16:41] LABS: Glucose,Whole Blood 118 mg/dL (75-99)
[2021-06-08] MEDS: RIVAROXABAN 15 MG TAB PO SCH (17:16)
[2021-06-08] MEDS: TAMSULOSIN 0.4 MG CAP.ER.24H PO SCH (17:16)
[2021-06-08 20:25] LABS: Glucose,Whole Blood 139 mg/dL (75-99)
[2021-06-08] MEDS: ATORVASTATIN 20 MG TAB PO SCH (20:50)
[2021-06-08] MEDS: LATANOPROST 0.005% OPHTH DROPS 2.5 ML BTL BOTH EYES SCH (20:51)
[2021-06-08 22:52] LABS: Appearance,Urine Clear (Clear); Bilirubin,Urine Negative (Negative); Blood,Urine Moderate (Negative); Color,Urine Yellow; Glucose,Urine (UA) Negative (Negative); Hyaline Casts,Urine 19 /lpf (0-2); Ketones,Urine Negative (Negative); Leukocyte Esterase,Urine Negative (Negative); Mucus,Urine Rare /hpf; Nitrite,Urine Negative (Negative); Protein,Urine Trace (Negative); RBC,Urine 45 /hpf (0-5); Specific Gravity,Urine 1.011 (1.001-1.035); Squamous Epithelial Cell,Urine <1 /hpf (0-4); Urobilinogen,Urine <2.0 mg/dL (<2.0); WBC,Urine 2 /hpf (0-5)
[2021-06-09] MEDS: MIDODRINE 5 MG TAB PO SCH ×3 (06:25→17:01)
[2021-06-09] MEDS: PANTOPRAZOLE 40 MG TABLET PO SCH (06:25)
[2021-06-09] MEDS: carvediloL 3.125 MG TAB PO SCH ×2 (06:25→17:01)
[2021-06-09 06:35] LABS: Glucose,Whole Blood 111 mg/dL (75-99)
[2021-06-09] MEDS: IPRATROPIUM-ALBUTEROL 3 ML NEB INHALATION SCH ×3 (08:44→20:10)
[2021-06-09] MEDS: AMIODARONE 200 MG TAB PO SCH (09:28)
[2021-06-09] MEDS: FUROSEMIDE 10 MG/ML 4 ML VIAL IV SCH ×2 (09:29→20:39)
[2021-06-09] MEDS: DORZOLAMIDE-TIMOLOL 2.23%/0.68 10ML BTL BOTH EYES SCH ×2 (09:30→20:38)
[2021-06-09 12:08] LABS: Calcium 8.8 mg/dL (8.4-10.2); Potassium 5.5 mmol/L (3.5-5.1)
[2021-06-09 12:12] LABS: Glucose,Whole Blood 146 mg/dL (75-99)
--- NOTE | 2021-06-09 13:07 | P.PN ---
Subjective Patient is seen in follow-up for acute kidney injury on chronic kidney disease. Renal function improving. On IV Lasix. Currently on room air. Hemodynamically stable. No vomiting or diarrhea. Vital signs are stable. General: The patient appeared well nourished and normally developed. HEENT: Head exam is unremarkable. LUNGS: Breath sounds decreased. HEART: Rate and Rhythm are regular. ABDOMEN: Soft, obese. EXTREMITITES: 1+ edema. Objective - Vital Signs Vital signs: Vital Signs Temp 97.3 F L 06/09/21 08:30 Pulse 80 06/09/21 12:35 Resp 20 06/09/21 08:30 BP 96/50 06/09/21 08:30 Pulse Ox 94 L 06/09/21 08:30 Intake & Output 06/08/21 06/09/21 06/09/21 18:59 06:59 18:59 Intake Total 480 246 Output Total 1200 900 500 Balance -720 -900 -254 Weight 204.479 kg Intake: IV 10 Invasive Line 5 10 Oral 480 236 Output: Urine 1200 900 500 Uretheral (Vásquez) 1200 500 Other: Voiding Method Indwelling Catheter Indwelling Catheter Indwelling Catheter # Bowel Movements 2 - Labs CBC & Chem 7: 06/08/21 08:21 06/09/21 11:06 Labs: Abnormal Lab Results - Last 24 Hours (Table) 06/08/21 06/08/21 06/08/21 Range/Units 16:39 20:23 21:28 Potassium (3.5-5.1) mmol/L Chloride (98-107) mmol/L BUN (7-17) mg/dL Creatinine (0.52-1.04) mg/dL Glucose (74-99) mg/dL POC Glucose (mg/dL) 118 H 139 H (75-99) mg/dL Urine Protein Trace H (Negative) Urine Blood Moderate H (Negative) Urine RBC 45 H (0-5) /hpf Hyaline Casts 19 H (0-2) /lpf Urine Mucus Rare H (None) /hpf 06/09/21 06/09/21 06/09/21 Range/Units 06:19 11:06 11:54 Potassium 5.5 H (3.5-5.1) mmol/L Chloride 109 H (98-107) mmol/L BUN 42 H (7-17) mg/dL Creatinine 2.12 H (0.52-1.04) mg/dL Glucose 122 H (74-99) mg/dL POC Glucose (mg/dL) 111 H 146 H (75-99) mg/dL Urine Protein (Negative) Urine Blood (Negative) Urine RBC (0-5) /hpf Hyaline Casts (0-2) /lpf Urine Mucus (None) /hpf Assessment and Plan Plan: Assessment: 1. Acute kidney injury secondary to ATN secondary to acute blood loss anemia as well as urinary retention. Also component of cardiorenal syndrome. Renal function improving. Creatinine 2.12 today. 2. Urinary retention status post Vásquez catheter placement. 3. Acute on chronic diastolic CHF. 4. E. coli UTI on antibiotics. 5. Volume overload. 6. Acute GI bleed status post endoscopy which revealed gastritis, duodenitis, nonbleeding AVMs status post argon plasma coagulation. Status post blood transfusion. 7. Chronic kidney disease stage IIIB with baseline creatinine in the range of 1.4-1.7. Etiology is nephrosclerosis. 8. Hypotension maintained on midodrine. Cortisol level not low. Plan: Maintain IV Lasix - transition to oral Lasix 40 mg twice daily tomorrow. Add Flomax. Plan to discontinue Vásquez catheter tomorrow. Renal diet. Repeat potassium level this evening.
[2021-06-09 16:45] LABS: Glucose,Whole Blood 138 mg/dL (75-99)
[2021-06-09] MEDS: TAMSULOSIN 0.4 MG CAP.ER.24H PO SCH (17:01)
[2021-06-09] MEDS: RIVAROXABAN 15 MG TAB PO SCH (17:01)
[2021-06-09] MEDS ORDERED: INSULIN REGULAR 100 UNIT/ML VIAL (IV) IV ONE (19:23)
[2021-06-09] MEDS ORDERED: DEXTROSE 50% SYRINGE 50 ML IVP STA (19:24)
[2021-06-09 20:09] LABS: Glucose,Whole Blood 142 mg/dL (75-99)
[2021-06-09] MEDS: ATORVASTATIN 20 MG TAB PO SCH (20:38)
[2021-06-09] MEDS: LATANOPROST 0.005% OPHTH DROPS 2.5 ML BTL BOTH EYES SCH (20:39)
--- NOTE | 2021-06-10 03:03 | P.PN ---
Subjective Progress Note Date: 06/09/21 This is a pleasant 60 year old female who was recently admitted for atrial fibrillation with RVR and also found to have extremely low hemoglobin requiring transfusions. GI, cardiology, and pulmonary leave specialist following closely. Patient was briefly monitored in the ICU and currently on the selective unit with telemetry monitoring. Patient scheduled for EGD/colonoscopy today with Dr. Gann. Patient continues on IV lasix as well with cardiology following closely. Anticoagulation Xarelto on hold and patient is on cardizem. No reported chest pain. Afebrile. 06/02/2021 Patient is seen and evaluated in follow up and is being closely monitored by multiple medical consultations including pulmonary and nephrology. Cardiology evaluated the patient and will sign off and has resumed xarelto. No further bleeding noted s/p colonoscopy. Hemoglobin today is 7.9. Urinalysis done which will order culture as it is positive. Attempted ultrasound to evaluate the kidneys unable to be done due to body habitus. Nephrology following and will initiate IV lasix 40mg daily for volume overload. Kidney functions worsening. Social work consult placed for possible ECF placement as patient continues to be weak. 06/03/2021 Patient is seen this morning lethargic although arousable. Patient continues to be weak and being closely followed by nephrology. Patient has been started on IV Lasix for extensive volume overload and creatinine continues to trend up and is currently 3.59 today. Urinalysis is positive and awaiting cultures. Blood cultures remain negative. Continue with Rocephin while awaiting for cultures are finalized. Patient's blood pressures on the lower side and nephrology has started midodrine and will continue to monitor closely. Insert indwelling Harmon catheter for retention. Patient denies any bleeding noted and has been resumed on Xarelto and will continue to monitor closely. 06/04/2021 Patient is seen and evaluated in follow-up this morning with no acute overnight issues noted. Nephrology following closely as kidney functions have worsened although slightly improved today with creatinine of 3.48 and BUN is 36. IV Lasix has been discontinued. Patient to continue with indwelling Harmon catheter with good urine output and maintain on IV ceftriaxone while awaiting for cultu res to finalized. Preliminary cultures have been received and pending. Encouraged increased activity as tolerated and continue with PT/OT therapy daily. 06/05/2021 Patient is seen evaluated and follow-up this morning and nephrology following closely. Patient's kidney functions continue to be elevated although trending down slowly. Per nursing staff, patient continues with indwelling Harmon ca theter and urine output is minimal and nephrology aware. Patient urine cultures finalized showing E. coli which is sensitive to ceftriaxone and will continue ceftriaxone at this time. she denies any chest pain. Patient is afebrile. patient with continued weakness and will continue with PT/OT therapy evaluation 06/06/2021 Patient is seen in follow-up this morning with no acute overnight issues. Patient is maintained on IV ceftriaxone for urinary tract infection with culture showing E. coli. Patient having some continued overload and will give a dose of IV Lasix and continue twice daily with close monitoring of kidney functions. Nephrology following closely and this was discussed with her in detail. Repeat labs in the morning and may likely continue with daily dosing of IV Lasix. will continue with indwelling Harmon catheter. 06/07/2021 Patient states in bed most of the time. She is not moving out of bed. She is not complaining of from dyspnea while at rest but looks swollen and fluid overloaded. Patient is sleepy somewhat at times most likely related to her sleep apnea. She is on CPAP at night and she does not bring it yet. Yesterday patient was restarted on Lasix and her creatinine trending down to 2.7 today. Blood pressure is low normal since admission and currently 91/53. Platelet is 106. Hemoglobin was 7.5 yesterday and today 7.3 we'll keep monitoring. Keep holding lisinopril and Lasix. She is currently on ceftriaxone, Xarelto 15 mg 06/08/2021 Patient with fluid overload secondary to diastolic CHF with ejection fraction of 50-55% and she is responding to IV Lasix, acute kidney injury is improving and creatinine down to 2.5. Hemoglobin 7.2, platelets 147. Blood pressure significantly improved 128/60. CPAP at night She remains on IV Lasix 40 mg twice daily. Also she remains on ceftriaxone for UTI. Tomorrow his last dose. Repeat UA is ordered Patient presents with GI bleed, endoscopy showing AV malformation and polyps status post polypectomy at plasma coagulation. Xarelto resumed. Patient is agreeable to rehab upon discharge 06/09/2021 Patien is seen in follow up this morning and currently sitting up in the chair with family at the bedside. Nephrology following closely and recommending 24 hour continued IV lasix as ordered and trial a void with harmon discontinuation in the am. Patient is planning for ECF placement for strength and mobility. PT/OT following and recommending sub-acute rehab. Plan is for [facility]. Labs: Sodium is 138, potassium is 5.7, bun is 42, creatinine is 2.12 Review of systems: Constitutional: reports of fatigue, no reports of fever, or chills Cardiovascular: No reports of chest pain or palpitations Respiratory: No reports of shortness of breath or cough GI: No reports of nausea, vomiting, or diarrhea : Had some urinary retention and indwelling Harmon catheter continued and will trial removal in am Neurovascular: Reports generalized weakness Active Medications Acetaminophen (Acetaminophen Tab 325 Mg Tab) 650 mg PO Q4HR PRN PRN Reason: Fever and/or Mild Pain Albuterol/Ipratropium (Ipratropium-Albuterol 3 Ml Neb) 3 ml INHALATION RT-TID [facility] Last Admin: 06/09/21 12:20 Dose: 3 ml Documented by: Albuterol/Ipratropium (Ipratropium-Albuterol 3 Ml Neb) 3 ml INHALATION RT-Q2H PRN PRN Reason: Shortness Of Breath Or Wheezing Amiodarone HCl (Amiodarone 200 Mg Tab) 200 mg PO DAILY [facility] Last Admin: 06/09/21 09:28 Dose: 200 mg Documented by: Atorvastatin Calcium (Atorvastatin 20 Mg Tab) 20 mg PO HS [facility] Last Admin: 06/08/21 20:50 Dose: 20 mg Documented by: Carvedilol (Carvedilol 3.125 Mg Tab) 3.125 mg PO AC-BID [facility] Last Admin: 06/09/21 06:25 Dose: 3.125 mg Documented by: Clonazepam (Clonazepam 1 Mg Tab) 1 mg PO BID PRN PRN Reason: Anxiety Last Admin: 06/05/21 12:27 Dose: 1 mg Documented by: Dorzolamide/Timolol (Dorzolamide-Timolol 2.23%/0.68 10ml Btl) 1 drops BOTH EYES BID [facility] Last Admin: 06/09/21 09:30 Dose: 1 drops Documented by: Furosemide (Furosemide 10 Mg/Ml 4 Ml Vial) 40 mg IV Q12HR [facility] Last Admin: 06/09/21 09:29 Dose: 40 mg Documented by: Ceftriaxone Sodium 2 gm/ (Sodium Chloride) 50 mls @ 100 mls/hr IVPB Q24H [facility] Last Admin: 06/09/21 09:29 Dose: 100 mls/hr Documented by: Latanoprost (Latanoprost 0.005% Ophth Drops 2.5 Ml Btl) 1 drops BOTH EYES HS [facility] Last Admin: 06/08/21 20:51 Dose: 1 drops Documented by: Midodrine (Midodrine 5 Mg Tab) 10 mg PO AC-TID [facility] Last Admin: 06/09/21 12:04 Dose: 10 mg Documented by: Naloxone HCl (Naloxone 0.4 Mg/Ml 1 Ml Vial) 0.2 mg IV Q2M PRN PRN Reason: Opioid Reversal Pantoprazole Sodium (Pantoprazole 40 Mg Tablet) 40 mg PO AC-BRKFST [facility] Last Admin: 06/09/21 06:25 Dose: 40 mg Documented by: Rivaroxaban (Rivaroxaban 15 Mg Tab) 15 mg PO W/SUPPER [facility]; Protocol Last Admin: 06/08/21 17:16 Dose: 15 mg Documented by: Tamsulosin HCl (Tamsulosin 0.4 Mg Cap.Er.24h) 0.4 mg PO PC-SUPPER [facility] Last Admin: 06/08/21 17:16 Dose: 0.4 mg Documented by: Trazodone HCl (Trazodone Hcl 100 Mg Tab) 100 mg PO HS PRN PRN Reason: Insomnia Last Admin: 06/04/21 21:01 Dose: 100 mg Documented by: Physical Exam: GENERAL: The patient is alert and oriented x3, morbidly obese. Well developed, well nourished. HEENT: Pupils are round and equally reacting to light. EOMI. No scleral icterus. No conjunctival pallor. Normocephalic, atraumatic. No pharyngeal erythema. No thyromegaly. CARDIOVASCULAR: S1 and S2 muffled PULMONARY: Diminished breath sounds bilaterally with some scattered rhonchi noted. ABDOMEN: Soft, obese, nontender, nondistended, normoactive bowel sounds. No palpable organomegaly. MUSCULOSKELETAL: No joint swelling or deformity. EXTREMITIES: No cyanosis, clubbing, bilateral lower extremity edema noted NEUROLOGICAL: Gross neurological examination did not reveal any focal deficits. Diffusely weak SKIN: No rashes. no petechiae. Assessment: atrial fibrillation with RVR, present on admission Possible supraventricular tachycardia, present on admission acute urinary tract infection, culture showing E. coli Urinary retention requiring indwelling harmon catheter anemia, possible acute on chronic blood loss anemia with acute GI blood loss fr om cecal AVM Status post EGD and colonoscopy, EGD showing duodenitis and gastritis chronic CHF diastolic dysfunction, acute exacerbation Acute hypoxic respiratory failure, present on admission, secondary to CHF History of chronic afib History of DM, type 2 History of lymphoma History of appendectomy History of anxiety Remote history of nicotine dependence HIstory of THC anemia, macrocytic Elevated PT/INR Hyperkalemia secondary to renal failure ARF, present with acute tubular necrosis Elevated bilirubin Increased AST Troponin 0.378, indeterminate. Acute myocardial unlikely per cardiology Hypoalbuminemia with mild protein calorie malnutrition GI prophylaxis: Protonix DVT prophylaxis: Xarelto Full code Plan: Recommend to continue current medications, management, and symptomatic treatment. Nephrology following and patient having some intermittent periods of shortness of breath and maintained on IV Lasix every 12 hours and repeat a.m. labs and possibly transition to oral lasix if kidney functions are stable. continue indwelling Harmon catheter with starting flomax and trial void in the am and monitor for voiding. Continue IV ceftriaxone for now. Authorization from insurance has been obtained and awaiting nephrology clearance for discharge to [facility]. Possible discharge in 24 hours. Objective - Vital Signs Vital signs: Vital Signs Temp 97.3 F L 06/09/21 08:30 Pulse 76 06/09/21 08:59 Resp 20 06/09/21 08:30 BP 96/50 06/09/21 08:30 Pulse Ox 94 L 06/09/21 08:30 Intake & Output 06/08/21 06/09/21 06/09/21 18:59 06:59 18:59 Intake Total 480 236 Output Total 1200 900 Balance -720 -900 236 Weight 204.479 kg Intake: Oral 480 236 Output: Urine 1200 900 Uretheral (Harmon) 1200 Other: Voiding Method Indwelling Catheter Indwelling Catheter - Labs CBC & Chem 7: 06/08/21 08:21 06/10/21 00:28 Labs: Abnormal Lab Results - Last 24 Hours (Table) 10/24/21 10/24/21 10/24/21 Range/Units 11:57 16:39 20:23 POC Glucose (mg/dL) 114 H 118 H 139 H (75-99) mg/dL Urine Protein (Negative) Urine Blood (Negative) Urine RBC (0-5) /hpf Hyaline Casts (0-2) /lpf Urine Mucus (None) /hpf 06/08/21 06/09/21 Range/Units 21:28 06:19 POC Glucose (mg/dL) 111 H (75-99) mg/dL Urine Protein Trace H (Negative) Urine Blood Moderate H (Negative) Urine RBC 45 H (0-5) /hpf Hyaline Casts 19 H (0-2) /lpf Urine Mucus Rare H (None) /hpf
[2021-06-10] MEDS: PANTOPRAZOLE 40 MG TABLET PO SCH (06:12)
[2021-06-10] MEDS: MIDODRINE 5 MG TAB PO SCH ×3 (06:12→17:03)
[2021-06-10] MEDS: carvediloL 3.125 MG TAB PO SCH ×2 (06:12→17:03)
[2021-06-10 06:23] LABS: Glucose,Whole Blood 97 mg/dL (75-99)
[2021-06-10] MEDS: IPRATROPIUM-ALBUTEROL 3 ML NEB INHALATION SCH ×3 (07:56→20:28)
[2021-06-10] MEDS: DORZOLAMIDE-TIMOLOL 2.23%/0.68 10ML BTL BOTH EYES SCH ×2 (09:37→21:10)
[2021-06-10] MEDS: AMIODARONE 200 MG TAB PO SCH (09:37)
[2021-06-10 09:59] LABS: Magnesium 1.8 mg/dL (1.6-2.3)
[2021-06-10] MEDS: FUROSEMIDE 10 MG/ML 4 ML VIAL IV SCH (10:30)
--- NOTE | 2021-06-10 11:25 | P.PN ---
Subjective Patient is seen in follow-up for acute kidney injury on chronic kidney disease. Renal function improving. On IV Lasix. Currently on room air. Hemodynamically stable. No vomiting or diarrhea. Vásquez catheter removed this morning. Vital signs are stable. General: The patient appeared well nourished and normally developed. HEENT: Head exam is unremarkable. LUNGS: Breath sounds decreased. HEART: Rate and Rhythm are regular. ABDOMEN: Soft, obese. EXTREMITITES: 1+ edema. Objective - Vital Signs Vital signs: Vital Signs Temp 98.3 F 06/10/21 08:00 Pulse 81 06/10/21 08:00 Resp 18 06/10/21 08:00 BP 136/62 06/10/21 08:00 Pulse Ox 95 06/10/21 08:00 Intake & Output 06/09/21 06/10/21 06/10/21 18:59 06:59 18:59 Intake Total 616 10 Output Total 500 600 400 Balance 116 -600 -390 Weight 204.5 kg Intake: IV 20 10 Invasive Line 5 20 Invasive Line 6 10 Oral 596 0 Output: Urine 500 600 400 Uretheral (Vásquez) 500 400 Other: Voiding Method Indwelling Catheter Indwelling Catheter Indwelling Catheter # Bowel Movements 3 1 - Labs CBC & Chem 7: 06/08/21 08:21 06/10/21 09:09 Labs: Abnormal Lab Results - Last 24 Hours (Table) 06/09/21 06/09/21 06/09/21 Range/Units 11:06 11:54 16:44 Potassium 5.5 H (3.5-5.1) mmol/L Chloride 109 H (98-107) mmol/L BUN 42 H (7-17) mg/dL Creatinine 2.12 H (0.52-1.04) mg/dL Glucose 122 H (74-99) mg/dL POC Glucose (mg/dL) 146 H 138 H (75-99) mg/dL 06/09/21 06/09/21 06/10/21 Range/Units 18:36 20:08 09:09 Potassium 5.7 H (3.5-5.1) mmol/L Chloride 108 H (98-107) mmol/L BUN 42 H (7-17) mg/dL Creatinine 1.85 H (0.52-1.04) mg/dL Glucose (74-99) mg/dL POC Glucose (mg/dL) 142 H (75-99) mg/dL Assessment and Plan Plan: Assessment: 1. Acute kidney injury secondary to ATN secondary to acute blood loss anemia as well as urinary retention. Also component of cardiorenal syndrome. Renal function improving. Creatinine 1.85 today. 2. Urinary retention status post Vásquez catheter placement - removed this morning. On Flomax. 3. Acute on chronic diastolic CHF. 4. E. coli UTI on antibiotics. 5. Volume overload. Improved with diuresis. 6. Acute GI bleed status post endoscopy which revealed gastritis, duodenitis, nonbleeding AVMs status post argon plasma coagulation. Status post blood transfusion. 7. Chronic kidney disease stage IIIB with baseline creatinine in the range of 1.4-1.7. Etiology is nephrosclerosis. 8. Hypotension maintained on midodrine. Cortisol level not low. Plan: Stop IV Lasix and start oral Lasix 40 mg twice a day. Renal diet. Possible discharge to ECF today. Repeat BMP and magnesium level 2-3 days postdischarge. Follow up outpatient in 1 week.
[2021-06-10 12:05] LABS: Glucose,Whole Blood 97 mg/dL (75-99)
--- NOTE | 2021-06-10 14:07 | P.DS ---
Providers Date of admission: 05/28/21 13:25 Expected date of discharge: 06/10/21 Attending physician: Simon Solitario Consults: 05/28/21 13:25 Consult Physician Routine Consulting Provider: Pato Gann Consult Reason/Comments: SVT, arrhythmia Do you want consulting provider notified?: Already Contacted Consult Physician Urgent Consulting Provider: Kem Mcdaniels Consult Reason/Comments: ICU management Do you want consulting provider notified?: Already Contacted Consult Physician Urgent Consulting Provider: Carlota Gann Consult Reason/Comments: Anemia, suspect GI bleed Do you want consulting provider notified?: Already Contacted 06/01/21 09:03 Consult Physician Routine Consulting Provider: Mae Florence Consult Reason/Comments: acute kidney injury Do you want consulting provider notified?: Yes Primary care physician: Quique Austin Hospital Course: Final diagnosis atrial fibrillation with RVR, present on admission Possible supraventricular tachycardia, present on admission acute urinary tract infection, culture showing E. 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 Acute myocardial unlikely per cardiology Hypoalbuminemia with mild protein calorie malnutrition GI prophylaxis DVT prophylaxis Full code Discharge disposition Patient is being [facility] in a stable condition with [facility]. Patient will follow-up with Dr. Lei in the outpatient setting upon discharge. Patient will also need close follow-up with nephrology in the outpatient setting along with cardiology. Recommend repeat labs in 2-3 days to monitor CBC, BMP, magnesium. Total time taken is greater than 35 minutes. Hospital course This is a 60-year-old female who was recently admitted with atrial fibrillation with RVR also found to have extremely low hemoglobin requiring transfusion and underwent EGD/colonoscopy showing mild gastritis along with AV malformation and polyps status post polypectomy and plasma argon coagulation. Biopsies were negative. Patient also developed some acute kidney injury and nephrology following closely and patient was maintained on IV Lasix which is being transitioned to 40 mg twice daily and recommend close outpatient follow-up in one week with nephrology along with labs to monitor CBC, BMP, magnesium. Patient was having some urinary tract infection with cultures finalizing E. coli and was adequately treated with ceftriaxone with sensitivities and will not require antibiotics on discharge. Patient had some urinary retention and started on Flomax an indwelling Harmon catheter has been removed and patient is voiding. Patient continues to be incontinent due to large body habitus and continued weakness. Patient needs daily physical therapy for strength and mobility and family is agreeable with this. She is to follow-up with cardiology and nephrology in 1-2 weeks on discharge. Currently no reports of chest pain, shortness of breath, or palpitations. Patient is afebrile. No reports of nausea or vomiting and patient is tolerating diet. Patient will be going to [facility] today. Guarded prognosis. GENERAL: The patient is alert and oriented x3, morbidly obese. Well developed, well nourished. HEENT: Pupils are round and equally reacting to light. EOMI. No scleral icterus. No conjunctival pallor. Normocephalic, atraumatic. No pharyngeal erythema. No thyromegaly. CARDIOVASCULAR: S1 and S2 muffled PULMONARY: Diminished breath sounds bilaterally with some scattered rhonchi noted. ABDOMEN: Soft, obese, nontender, nondistended, normoactive bowel sounds. No palpable organomegaly. MUSCULOSKELETAL: No joint swelling or deformity. EXTREMITIES: No cyanosis, clubbing, bilateral lower extremity edema noted NEUROLOGICAL: Gross neurological examination did not reveal any focal deficits. Diffusely weak SKIN: No rashes. no petechiae. Please refer to medication reconciliation sheet for a list of medications. Patient Condition at Discharge: Stable Plan - Discharge Summary Discharge Rx Participant: Yes New Discharge Prescriptions: New Amiodarone [Cordarone] 200 mg PO DAILY tab carvediloL [Coreg] 3.125 mg PO AC-BID tab Ipratropium-Albuterol Nebulize [Duoneb 0.5 mg-3 mg/3 ml Soln] 3 ml INHALATION RT-TID ml Ipratropium-Albuterol Nebulize [Duoneb 0.5 mg-3 mg/3 ml Soln] 3 ml INHALATION RT-Q2H PRN ml PRN Reason: Shortness Of Breath Or Wheezing Furosemide [Lasix] 40 mg PO BID@0900,1600 tab Midodrine [ProAmatine] 10 mg PO AC-TID tab Pantoprazole [Protonix] 40 mg PO AC-BRKFST tab Rivaroxaban [Xarelto] 15 mg PO W/SUPPER tab Tamsulosin [Flomax] 0.4 mg PO PC-SUPPER capsule clonazePAM [KlonoPIN] 1 mg PO BID PRN #3 tab PRN Reason: Anxiety Acetaminophen Tab [Tylenol] 650 mg PO Q4HR PRN tab PRN Reason: Fever And/Or Mild Pain Continue Latanoprost/Pf [Latanoprost 0.005% Eye Drop] 1 drop BOTH EYES HS Loratadine [Claritin] 10 mg PO DAILY traZODone HCL [Desyrel] 100 mg PO HS PRN PRN Reason: Insomnia Dorzolamide/Timolol/Pf [Dorzolamide 2%-Timolol 0.5%] 1 drop BOTH EYES BID Albuterol Sulfate [Proair Hfa] 2 puff INHALATION RT-Q6H PRN PRN Reason: Shortness Of Breath Atorvastatin [Lipitor] 20 mg PO HS Discontinued Spironolactone [Aldactone] 25 mg PO DAILY Rivaroxaban [Xarelto] 20 mg PO DAILY clonazePAM [KlonoPIN] 1 mg PO BID PRN PRN Reason: Anxiety Amiodarone [Cordarone] 100 mg PO DAILY #90 tab Furosemide [Lasix] 20 mg PO DAILY lisinopriL [Zestril] 20 mg PO DAILY carvediloL [Coreg] 6.25 mg PO BID Discharge Medication List Latanoprost/Pf [Latanoprost 0.005% Eye Drop] 1 drop BOTH EYES HS 12/28/18 [History] Albuterol Sulfate [Proair Hfa] 2 puff INHALATION RT-Q6H PRN 05/28/21 [History] Atorvastatin [Lipitor] 20 mg PO HS 05/28/21 [History] Dorzolamide/Timolol/Pf [Dorzolamide 2%-Timolol 0.5%] 1 drop BOTH EYES BID 05/28/21 [History] Loratadine [Claritin] 10 mg PO DAILY 05/28/21 [History] traZODone HCL [Desyrel] 100 mg PO HS PRN 05/28/21 [History] Acetaminophen Tab [Tylenol] 650 mg PO Q4HR PRN tab 06/10/21 [Rx] Amiodarone [Cordarone] 200 mg PO DAILY tab 06/10/21 [Rx] Furosemide [Lasix] 40 mg PO BID@0900,1600 tab 06/10/21 [Rx] Ipratropium-Albuterol Nebulize [Duoneb 0.5 mg-3 mg/3 ml Soln] 3 ml INHALATION RT-Q2H PRN ml 06/10/21 [Rx] Ipratropium-Albuterol Nebulize [Duoneb 0.5 mg-3 mg/3 ml Soln] 3 ml INHALATION RT-TID ml 06/10/21 [Rx] Midodrine [ProAmatine] 10 mg PO AC-TID tab 06/10/21 [Rx] Pantoprazole [Protonix] 40 mg PO AC-BRKFST tab 06/10/21 [Rx] Rivaroxaban [Xarelto] 15 mg PO W/SUPPER tab 06/10/21 [Rx] Tamsulosin [Flomax] 0.4 mg PO PC-SUPPER capsule 06/10/21 [Rx] carvediloL [Coreg] 3.125 mg PO AC-BID tab 06/10/21 [Rx] clonazePAM [KlonoPIN] 1 mg PO BID PRN #3 tab 06/10/21 [Rx] Follow up Appointment(s)/Referral(s): Geovanna Lei MD [Primary Care Provider] - 1-2 days Davide Barrera MD [STAFF PHYSICIAN] - 1 Week (urologist as outpt) [facility], [NON-STAFF] - 1-2 Days Lucio Joy DO [STAFF PHYSICIAN] - 1 Week Pato Gann MD [STAFF PHYSICIAN] - 2 Weeks [facility] [NON-STAFF] - As Needed (Contact for possible shower chair) Ambulatory/Diagnostic Orders: Complete Blood Count w/diff [LAB.AMB] Time Frame: 3 Days, Location: None Selected Activity/Diet/Wound Care/Special Instructions: Patient is going to [facility] Activity as tolerated Continue with renal diet low phosphorus, low potassium, low sodium
[2021-06-10] MEDS: FUROSEMIDE 40 MG TAB PO SCH (17:02)
[2021-06-10] MEDS: TAMSULOSIN 0.4 MG CAP.ER.24H PO SCH (17:03)
[2021-06-10] MEDS: RIVAROXABAN 15 MG TAB PO SCH (17:03)
[2021-06-10 19:52] VITALS: RESP 20
[2021-06-10 20:19] LABS: Glucose,Whole Blood 108 mg/dL (75-99)
[2021-06-10] MEDS: ATORVASTATIN 20 MG TAB PO SCH (21:10)
[2021-06-10] MEDS: LATANOPROST 0.005% OPHTH DROPS 2.5 ML BTL BOTH EYES SCH (21:10)
[2021-06-11 06:21] LABS: Glucose,Whole Blood 110 mg/dL (75-99)
[2021-06-11] MEDS: MIDODRINE 5 MG TAB PO SCH ×3 (06:23→14:03)
[2021-06-11] MEDS: PANTOPRAZOLE 40 MG TABLET PO SCH (06:24)
[2021-06-11] MEDS: carvediloL 3.125 MG TAB PO SCH (06:24)
[2021-06-11] MEDS: IPRATROPIUM-ALBUTEROL 3 ML NEB INHALATION SCH ×2 (08:24→11:17)
[2021-06-11] MEDS: FUROSEMIDE 40 MG TAB PO SCH ×2 (09:25→16:06)
[2021-06-11] MEDS: AMIODARONE 200 MG TAB PO SCH (09:25)
[2021-06-11] MEDS: DORZOLAMIDE-TIMOLOL 2.23%/0.68 10ML BTL BOTH EYES SCH (09:26)
--- NOTE | 2021-06-11 11:22 | P.DS ---
Providers Date of admission: 05/28/21 13:25 Expected date of discharge: 06/11/21 Attending physician: Simon Solitario Consults: 05/28/21 13:25 Consult Physician Routine Consulting Provider: Pato Gann Consult Reason/Comments: SVT, arrhythmia Do you want consulting provider notified?: Already Contacted Consult Physician Urgent Consulting Provider: Kem Mcdaniels Consult Reason/Comments: ICU management Do you want consulting provider notified?: Already Contacted Consult Physician Urgent Consulting Provider: Carlota Gann Consult Reason/Comments: Anemia, suspect GI bleed Do you want consulting provider notified?: Already Contacted 06/01/21 09:03 Consult Physician Routine Consulting Provider: Mae Florence Consult Reason/Comments: acute kidney injury Do you want consulting provider notified?: Yes Primary care physician: Quique Austin Hospital Course: Final diagnosis atrial fibrillation with RVR, present on admission Possible supraventricular tachycardia, present on admission acute urinary tract infection, culture showing E. 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 Acute myocardial unlikely per cardiology Hypoalbuminemia with mild protein calorie malnutrition Morbid obesity with a BMI of 67.9 GI prophylaxis DVT prophylaxis Full code Discharge disposition Patient is being discharged in a stable condition [facility]. Patient will follow-up with Dr. Lei in the outpatient setting upon discharge. Patient will also need close follow-up with nephrology in the outpatient setting along with cardiology. Recommend repeat labs in 2-3 days to monitor CBC, BMP, magnesium. Total time taken is greater than 35 minutes. Hospital course This is a 60-year-old female who was recently admitted with atrial fibrillation with RVR also found to have extremely low hemoglobin requiring transfusion and underwent EGD/colonoscopy showing mild gastritis along with AV malformation and polyps status post polypectomy and plasma argon coagulation. Biopsies were negative. Patient also developed some acute kidney injury and nephrology following closely and patient was maintained on IV Lasix which is being transitioned to 40 mg twice daily and recommend close outpatient follow-up in one week with nephrology along with labs to monitor CBC, BMP, magnesium. Patient was having some urinary tract infection with cultures finalizing E. coli and was adequately treated with ceftriaxone with sensitivities and will not require antibiotics on discharge. Patient had some urinary retention and started on Flomax an indwelling Harmon catheter has been removed and patient is voiding. Patient continues to be incontinent due to large body habitus and cont inued weakness. Patient needs daily physical therapy for strength and mobility and family is agreeable with this. She is to follow-up with cardiology and nephrology in 1-2 weeks on discharge. Currently no reports of chest pain, shortness of breath, or palpitations. Patient is afebrile. No reports of nausea or vomiting and patient is tolerating diet. Patient will be going to [facility] today. Guarded prognosis. 06/11/2021 Patient was scheduled to be discharged yesterday and a bariatric bed was unavailable at the facility and arrangements are being made for necessary equipment along with CPAP order as patient does use this at night. Discussed with the liason about necessary equipment and this is being arranged. No reports of chest pain, shortness of breath, or palpitations. Patient is afebrile. Patient is voiding and denies any dysuria or burning with urination. GENERAL: The patient is alert and oriented x3, morbidly obese. Well developed, well nourished. HEENT: Pupils are round and equally reacting to light. EOMI. No scleral icterus. No conjunctival pallor. Normocephalic, atraumatic. No pharyngeal erythema. No thyromegaly. CARDIOVASCULAR: S1 and S2 muffled PULMONARY: Diminished breath sounds bilaterally with some scattered rhonchi noted. ABDOMEN: Soft, obese, nontender, nondistended, normoactive bowel sounds. No palpable organomegaly. MUSCULOSKELETAL: No joint swelling or deformity. EXTREMITIES: No cyanosis, clubbing, bilateral lower extremity edema noted NEUROLOGICAL: Gross neurological examination did not reveal any focal deficits. Diffusely weak SKIN: No rashes. no petechiae. Please refer to medication reconciliation sheet for a list of medications. Patient Condition at Discharge: Stable Plan - Discharge Summary Discharge Rx Participant: Yes New Discharge Prescriptions: New Amiodarone [Cordarone] 200 mg PO DAILY tab carvediloL [Coreg] 3.125 mg PO AC-BID tab Ipratropium-Albuterol Nebulize [Duoneb 0.5 mg-3 mg/3 ml Soln] 3 ml INHALATION RT-TID ml Ipratropium-Albuterol Nebulize [Duoneb 0.5 mg-3 mg/3 ml Soln] 3 ml INHALATION RT-Q2H PRN ml PRN Reason: Shortness Of Breath Or Wheezing Furosemide [Lasix] 40 mg PO BID@0900,1600 tab Midodrine [ProAmatine] 10 mg PO AC-TID tab Pantoprazole [Protonix] 40 mg PO AC-BRKFST tab Rivaroxaban [Xarelto] 15 mg PO W/SUPPER tab Tamsulosin [Flomax] 0.4 mg PO PC-SUPPER capsule clonazePAM [KlonoPIN] 1 mg PO BID PRN #3 tab PRN Reason: Anxiety Acetaminophen Tab [Tylenol] 650 mg PO Q4HR PRN tab PRN Reason: Fever And/Or Mild Pain Continue Latanoprost/Pf [Latanoprost 0.005% Eye Drop] 1 drop BOTH EYES HS Loratadine [Claritin] 10 mg PO DAILY traZODone HCL [Desyrel] 100 mg PO HS PRN PRN Reason: Insomnia Dorzolamide/Timolol/Pf [Dorzolamide 2%-Timolol 0.5%] 1 drop BOTH EYES BID Albuterol Sulfate [Proair Hfa] 2 puff INHALATION RT-Q6H PRN PRN Reason: Shortness Of Breath Atorvastatin [Lipitor] 20 mg PO HS Discontinued Spironolactone [Aldactone] 25 mg PO DAILY Rivaroxaban [Xarelto] 20 mg PO DAILY clonazePAM [KlonoPIN] 1 mg PO BID PRN PRN Reason: Anxiety Amiodarone [Cordarone] 100 mg PO DAILY #90 tab Furosemide [Lasix] 20 mg PO DAILY lisinopriL [Zestril] 20 mg PO DAILY carvediloL [Coreg] 6.25 mg PO BID Discharge Medication List Latanoprost/Pf [Latanoprost 0.005% Eye Drop] 1 drop BOTH EYES HS 12/28/18 [History] Albuterol Sulfate [Proair Hfa] 2 puff INHALATION RT-Q6H PRN 05/28/21 [History] Atorvastatin [Lipitor] 20 mg PO HS 05/28/21 [History] Dorzolamide/Timolol/Pf [Dorzolamide 2%-Timolol 0.5%] 1 drop BOTH EYES BID 05/28/21 [History] Loratadine [Claritin] 10 mg PO DAILY 05/28/21 [History] traZODone HCL [Desyrel] 100 mg PO HS PRN 05/28/21 [History] Acetaminophen Tab [Tylenol] 650 mg PO Q4HR PRN tab 06/10/21 [Rx] Amiodarone [Cordarone] 200 mg PO DAILY tab 06/10/21 [Rx] Furosemide [Lasix] 40 mg PO BID@0900,1600 tab 06/10/21 [Rx] Ipratropium-Albuterol Nebulize [Duoneb 0.5 mg-3 mg/3 ml Soln] 3 ml INHALATION RT-Q2H PRN ml 06/10/21 [Rx] Ipratropium-Albuterol Nebulize [Duoneb 0.5 mg-3 mg/3 ml Soln] 3 ml INHALATION RT-TID ml 06/10/21 [Rx] Midodrine [ProAmatine] 10 mg PO AC-TID tab 06/10/21 [Rx] Pantoprazole [Protonix] 40 mg PO AC-BRKFST tab 06/10/21 [Rx] Rivaroxaban [Xarelto] 15 mg PO W/SUPPER tab 06/10/21 [Rx] Tamsulosin [Flomax] 0.4 mg PO PC-SUPPER capsule 06/10/21 [Rx] carvediloL [Coreg] 3.125 mg PO AC-BID tab 06/10/21 [Rx] clonazePAM [KlonoPIN] 1 mg PO BID PRN #3 tab 06/10/21 [Rx] Follow up Appointment(s)/Referral(s): Geovanna Lei MD [Primary Care Provider] - 1-2 days Davide Barrera MD [STAFF PHYSICIAN] - 1 Week (urologist as outpt) [facility], [NON-STAFF] - 1-2 Days Lucio Joy DO [STAFF PHYSICIAN] - 1 Week Pato Gann MD [STAFF PHYSICIAN] - 2 Weeks [facility] [NON-STAFF] - As Needed (Contact for possible shower chair) Ambulatory/Diagnostic Orders: Complete Blood Count w/diff [LAB.AMB] Time Frame: 3 Days, Location: [facility] Wilma vargas Activity/Diet/Wound Care/Special Instructions: Patient is going to [facility] as tolerated Continue with renal diet low phosphorus, low potassium, low sodium
[2021-06-11 11:37] LABS: Glucose,Whole Blood 110 mg/dL (75-99)
--- NOTE | 2021-06-11 11:48 | P.PN ---
Subjective Patient is seen in follow-up for acute kidney injury on chronic kidney disease. Renal function improving. On po Lasix. Currently on room air. Hemodynamically stable. No vomiting or diarrhea. Good urine output. Vital signs are stable. General: The patient appeared well nourished and normally developed. HEENT: Head exam is unremarkable. LUNGS: Breath sounds decreased. HEART: Rate and Rhythm are regular. ABDOMEN: Soft, obese. EXTREMITITES: Trace edema. Objective - Vital Signs Vital signs: Vital Signs Temp 97.6 F 06/11/21 07:40 Pulse 72 06/11/21 11:28 Resp 20 06/11/21 07:40 BP 121/57 06/11/21 07:40 Pulse Ox 97 06/11/21 07:40 Intake & Output 06/10/21 06/11/21 06/11/21 18:59 06:59 18:59 Intake Total 498 250 Output Total 676 600 Balance -178 -600 250 Weight 202.7 kg Intake: IV 20 10 Invasive Line 6 20 10 Oral 478 240 Output: Urine 400 300 Uretheral (Vásquez) 400 Post Void Residual 276 300 Other: Voiding Method Indwelling Catheter External Catheter # Voids 1 1 # Bowel Movements 1 1 - Labs CBC & Chem 7: 06/08/21 08:21 06/10/21 09:09 Labs: Abnormal Lab Results - Last 24 Hours (Table) 06/10/21 06/11/21 06/11/21 Range/Units 20:18 06:20 11:36 POC Glucose (mg/dL) 108 H 110 H 110 H (75-99) mg/dL Assessment and Plan Plan: Assessment: 1. Acute kidney injury secondary to ATN secondary to acute blood loss anemia as well as urinary retention. Also component of cardiorenal syndrome. Renal function improving. Creatinine 1.85 yesterday. 2. Urinary retention status post Vásquez catheter placement - removed June 10. On Flomax. 3. Acute on chronic diastolic CHF. 4. E. coli UTI on antibiotics. 5. Volume overload. Improved with diuresis. 6. Acute GI bleed status post endoscopy which revealed gastritis, duodenitis, nonbleeding AVMs status post argon plasma coagulation. Status post blood transfusion. 7. Chronic kidney disease stage IIIB with baseline creatinine in the range of 1.4-1.7. Etiology is nephrosclerosis. 8. Hypotension maintained on midodrine. Cortisol level not low. Plan: Maintain oral Lasix. Renal diet. Possible discharge to [facility]CF today. Repeat BMP and magnesium level 2-3 days postdischarge. Follow up outpatient in 1 week.
[2021-06-11 14:00] VITALS: BP 116/58; PULSE 73; TEMP 97.4
== END 2021-06-11 17:40 | DRG 377 ==
LOC: EC 09:30 → 2SICU 13:25 → 3SCARD 05-29 18:32
PROVIDERS: ADMIT Hospitalist; ATTEND Hospitalist
PROC: 30233N1 Transfusion of Nonautologous Red Blood Cells into Peripheral Vein, Percutaneous Approach (ICD-10-PCS; 2021-05-28)
PROC: 0DB98ZX Excision of Duodenum, Via Natural or Artificial Opening Endoscopic, Diagnostic (ICD-10-PCS; principal; 2021-05-30 13:35)
PROC: 0DB78ZX Excision of Stomach, Pylorus, Via Natural or Artificial Opening Endoscopic, Diagnostic (ICD-10-PCS; principal; 2021-05-30 13:35)
PROC: 0D5H8ZZ Destruction of Cecum, Via Natural or Artificial Opening Endoscopic (ICD-10-PCS; principal; 2021-05-30 13:35)
PROC: 0DBP8ZX Excision of Rectum, Via Natural or Artificial Opening Endoscopic, Diagnostic (ICD-10-PCS; principal; 2021-05-30 13:35)
PROC: 5A09457 Assistance with Respiratory Ventilation, 24-96 Consecutive Hours, Continuous Positive Airway Pressure (ICD-10-PCS; 2021-06-08)
DX: K55.21 Angiodysplasia of colon with hemorrhage (principal); I21.A1 Myocardial infarction type 2; J96.01 Acute respiratory failure with hypoxia; N17.0 Acute kidney failure with tubular necrosis; I50.33 Acute on chronic diastolic (congestive) heart failure; E87.2 Acidosis; E44.1 Mild protein-calorie malnutrition; D62 Acute posthemorrhagic anemia; I13.0 Hypertensive heart and chronic kidney disease with heart failure and stage 1 through stage 4 chronic kidney disease, or unspecified chronic kidney disease; I42.9 Cardiomyopathy, unspecified; I47.1 Supraventricular tachycardia; Z68.44 Body mass index [BMI] 60.0-69.9, adult; I48.19 Other persistent atrial fibrillation; N39.0 Urinary tract infection, site not specified; I95.9 Hypotension, unspecified; E11.22 Type 2 diabetes mellitus with diabetic chronic kidney disease; E66.01 Morbid (severe) obesity due to excess calories; N18.32 Chronic kidney disease, stage 3b; J44.9 Chronic obstructive pulmonary disease, unspecified; Z20.822 Contact with and (suspected) exposure to COVID-19; K29.70 Gastritis, unspecified, without bleeding; K29.80 Duodenitis without bleeding; K31.7 Polyp of stomach and duodenum; E87.5 Hyperkalemia; B96.20 Unspecified Escherichia coli [E. coli] as the cause of diseases classified elsewhere; G47.33 Obstructive sleep apnea (adult) (pediatric); K62.1 Rectal polyp; K52.9 Noninfective gastroenteritis and colitis, unspecified; E78.5 Hyperlipidemia, unspecified; N13.9 Obstructive and reflux uropathy, unspecified; R33.9 Retention of urine, unspecified; E80.7 Disorder of bilirubin metabolism, unspecified; I08.0 Rheumatic disorders of both mitral and aortic valves; F41.9 Anxiety disorder, unspecified; F17.201 Nicotine dependence, unspecified, in remission; Z79.01 Long term (current) use of anticoagulants; Z79.899 Other long term (current) drug therapy; Z91.81 History of falling; Z85.72 Personal history of non-Hodgkin lymphomas; Z90.49 Acquired absence of other specified parts of digestive tract; Z87.19 Personal history of other diseases of the digestive system; Z98.890 Other specified postprocedural states; Z71.3 Dietary counseling and surveillance
CPT/HCPCS: 36415; 43239; 44401; 45380; 45385; 71045; 76770; 80048; 80053; 81001; 82533; 82728; 82746; 83540; 83550; 83605; 83735; 83880; 84132; 84484; 85025; 85027; 85610; 85730; 86850; 86900; 86901; 86920; 87040; 87077; 87086; 87186; 87635; 88305; 93005; 93306; 94640; 94660; 94760; 96365; 96375; 96376; 99291

== ENCOUNTER 2021-06-20 13:46 | Emergency (ER) | payer OTHER ==
[2021-06-20] MEDS ORDERED: IPRATROPIUM-ALBUTEROL 3 ML NEB INHALATION STA (13:59)
[2021-06-20] MEDS ORDERED: methylPREDNISolone SOD SUCCI 125 MG/2 ML VIAL IV STA (13:59)
[2021-06-20] MEDS ORDERED: FUROSEMIDE 10 MG/ML 4 ML VIAL IV STA (13:59)
[2021-06-20] MEDS ORDERED: ASPIRIN 81 MG PO STA (14:01)
[2021-06-20 14:40] LABS: Anisocytosis Marked; HCT 21.5 % (34.0-46.0); Hypochromasia Marked; MCH 20.7 pg (25.0-35.0); MCHC 26.5 g/dL (31.0-37.0); MCV 78.1 fL (80.0-100.0); Mean Platelet Volume 9.3; Microcytosis Marked; Platelet Count 286 k/uL (150-450); Poikilocytosis Moderate; RBC 2.75 m/uL (3.80-5.40)
[2021-06-20 14:42] LABS: Lactic Acid, Venous 1.1 mmol/L (0.7-2.0)
[2021-06-20 14:43] LABS: Albumin 3.2 g/dL (3.5-5.0); Calcium 8.7 mg/dL (8.4-10.2); Total Bilirubin 0.5 mg/dL (0.2-1.3); Total Protein 6.9 g/dL (6.3-8.2)
[2021-06-20 14:45] LABS: INR 2.4 (<1.2); Prothrombin Time 23.1 sec (9.0-12.0)
[2021-06-20 14:48] LABS: RDW 26.9 % (11.5-15.5)
[2021-06-20 14:49] LABS: HGB 5.7 gm/dL (11.4-16.0)
--- NOTE | 2021-06-20 15:03 | XR ---
EXAMINATION TYPE: XR chest 1V portable DATE OF EXAM: 06/20/2021 COMPARISON: 06/01/2021 INDICATION: Short of breath TECHNIQUE: Single frontal view of the chest is obtained. FINDINGS: The heart size is very prominent. The pulmonary vasculature is mildly prominent. Some mild increased lung markings are present. There is poor visualization of the right diaphragm. IMPRESSION: 1. Cortical consideration for mild congestive heart failure is recommended.
[2021-06-20 15:06] LABS: Appearance,Urine Clear (Clear); Bacteria,Urine Rare /hpf; Bilirubin,Urine Negative (Negative); Blood,Urine Negative (Negative); Color,Urine Yellow; Glucose,Urine (UA) Negative (Negative); Hyaline Casts,Urine 60 /lpf (0-2); Ketones,Urine Negative (Negative); Leukocyte Esterase,Urine Small (Negative); Mucus,Urine Rare /hpf; Nitrite,Urine Negative (Negative); Protein,Urine 1+ (Negative); RBC,Urine 1 /hpf (0-5); Specific Gravity,Urine 1.013 (1.001-1.035); Squamous Epithelial Cell,Urine <1 /hpf (0-4); WBC,Urine 5 /hpf (0-5)
[2021-06-20 15:51] LABS: Neutrophils % (M) 68 %; Nucleated Red Blood Cells 5 /100 WBC (0-0); Total Cells Counted 200
[2021-06-20 15:52] LABS: Monocytes # (M) 0.72 k/uL (0-1.0); Neutrophils # (M) 3.74 k/uL (1.3-7.7); WBC 5.5 k/uL (3.8-10.6)
[2021-06-20 18:02] VITALS: PULSE 55
[2021-06-20 18:58] VITALS: RESP 20
[2021-06-20 19:30] VITALS: BP 125/82; TEMP 97.4
--- NOTE | 2021-06-20 21:28 | ED ---
SOB HPI - General Chief Complaint: Shortness of Breath Stated Complaint: KIERRA Time Seen by Provider: 06/20/21 13:52 Source: EMS Mode of arrival: EMS Limitations: no limitations - History of Present Illness Initial Comments: This 60-year-old female presents from the ECF via EMS for apparent shortness breath, confusion, and weakness. Report indicates that her pulse oximeter showed approximately 50% at the ECF. This did increase with oxygen via nasal ca nnula. She apparently was fairly confused as well. She is not a very good historian especially initially. She primarily complains of fatigue recently. She was just in our hospital several weeks ago for similar. She apparently had congestive heart failure as well as anemia and probable GI bleed. She was seen by gastroenterology and her hemoglobin was approximately 5.7. She had gastritis as well as duodenitis and a nonbleeding colonic AV fistula. She did receive blood transfusion on last admission as well. She was in the intensive care unit for a period of time. History is somewhat limited as patient is a very poor historian. - Related Data Home Medications Medication Instructions Recorded Confirmed Latanoprost/Pf [Latanoprost 0.005% 1 drop BOTH EYES HS 12/28/18 06/20/21 Eye Drop] Albuterol Sulfate [Proair Hfa] 2 puff INHALATION RT-Q6H PRN 05/28/21 06/20/21 Atorvastatin [Lipitor] 20 mg PO HS 05/28/21 06/20/21 Dorzolamide/Timolol/Pf 1 drop BOTH EYES BID@0800,1600 05/28/21 06/20/21 [Dorzolamide 2%-Timolol 0.5%] Loratadine [Claritin] 10 mg PO DAILY@0800 05/28/21 06/20/21 Amiodarone [Cordarone] 200 mg PO DAILY@0800 06/20/21 06/20/21 Ammonium Lactate Lotion 1 applic TOPICAL BID 06/20/21 06/20/21 [Lac-Hydrin 12% Lotion] Azithromycin [Zithromax] 500 mg PO DAILY 06/20/21 06/20/21 Furosemide [Lasix] 40 mg PO BID@0800,1600 06/20/21 06/20/21 Ipratropium/Albuterol Sulfate 2 puff INHALATION 06/20/21 06/20/21 [Combivent Respimat Inhaler] RT-QID@08,12,16,20 Magnesium Hydroxide [Milk of 2,400 mg PO DAILY PRN 06/20/21 06/20/21 Magnesia] Midodrine [ProAmatine] 10 mg PO TID@0600,1100,1600 06/20/21 06/20/21 Omeprazole 20 mg PO DAILY 06/20/21 06/20/21 Rivaroxaban [Xarelto] 15 mg PO DAILY@0800 06/20/21 06/20/21 Tamsulosin [Flomax] 0.4 mg PO HS 06/20/21 06/20/21 carvediloL [Coreg] 3.125 mg PO BID@0800,1600 06/20/21 06/20/21 clonazePAM [KlonoPIN] 1 mg PO Q12H PRN 06/20/21 06/20/21 methylPREDNISolone [Medrol Dose See Taper PO DAILY 06/20/21 06/20/21 Pack] traZODone HCL 50 mg PO HS 06/20/21 06/20/21 Previous Rx's Medication Instructions Recorded Acetaminophen Tab [Tylenol] 650 mg PO Q4HR PRN tab 06/10/21 Allergies Allergy/AdvReac Type Severity Reaction Status Date / Time No Known Allergies Allergy Verified 06/20/21 13:54 Review of Systems ROS Statement: Those systems with pertinent positive or pertinent negative responses have been documented in the HPI. ROS Other: All systems not noted in ROS Statement are negative. Past Medical History Past Medical History: Atrial Fibrillation, Cancer, Diabetes Mellitus Additional Past Medical History / Comment(s): see Dr Nielsen [facility] & [facility], 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 History of Any Multi-Drug Resistant Organisms: None Reported Past Surgical History: Appendectomy Additional Past Surgical History / Comment(s): mediport years ago, & then removed Past Anesthesia/Blood Transfusion Reactions: No Reported Reaction Past Psychological History: Anxiety Smoking Status: Former smoker Past Alcohol Use History: None Reported, Rare Past Drug Use History: Marijuana General Exam - General Exam Comments Initial Comments: GENERAL: The patient is well nourished and well hydrated. Appears morbidly obese. VITAL SIGNS: Heart rate, blood pressure, respiratory rate reviewed as recorded in nurse's notes. EYES: Pupils are round and reactive. Extraocular movements are intact. No conjunctival / lid redness or swelling. ENT: No external evidence of injury, swelling, or ecchymosis. Airway is patent. Throat is clear. NECK: Nontender. No swelling or evidence of injury. No subcutaneous emphysema. Trachea is midline. No thyroid mass. HEART: Regular rate and rhythm. Good peripheral pulses. Significant pedal and leg edema noted. LUNGS/CHEST: Rales noted bilaterally. No ecchymosis, subcutaneous emphysema, or tenderness. ABDOMEN: Abdomen soft without tenderness. No palpable masses or organomegaly. No peritoneal signs. No abdominal wall swelling or ecchymosis. EXTREMITIES: No extremity tenderness. Normal muscle tone and function. No thoracolumbar tenderness. NEUROLOGIC: Sensation is grossly intact. Cranial nerve exam reveals face is symmetrical, tongue is midline, speech is clear. SKIN: No abrasions or ecchymosis is noted. No induration or masses noted. PSYCHIATRIC: Alert and oriented. Appropriate behavior and judgment. Patient appears somewhat confused at times but this improved throughout ER course. Rectal exam: There is dark stool noted on digital rectal exam which is Hemoccult positive. Limitations: no limitations Course Vital Signs 06/20/21 06/20/21 06/20/21 13:50 15:27 16:45 Temperature 94.4 F L 95.4 F L Pulse Rate 105 H 54 L 52 L Respiratory 22 20 Rate Blood Pressure 110/83 104/71 O2 Sat by Pulse 100 95 Oximetry 06/20/21 06/20/21 06/20/21 17:00 17:30 18:00 Temperature 95 F L 95.1 F L 95.4 F L Pulse Rate 54 L 54 L 55 L Respiratory 20 20 22 Rate Blood Pressure 105/73 110/68 112/60 O2 Sat by Pulse 98 96 96 Oximetry 06/20/21 06/20/21 06/20/21 18:45 18:53 19:13 Temperature 97.2 F L 97.2 F L 97.4 F L Pulse Rate 55 L 55 L 55 L Respiratory 20 20 20 Rate Blood Pressure 111/54 134/57 125/82 O2 Sat by Pulse 95 95 Oximetry Medical Decision Making - Medical Decision Making The patient is seen and examined. All diagnostics are reviewed. 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 EKG shows sinus bradycardia degree AV block with a heart rate of 58. No acute ST-T wave changes are identified. The OR interval is 228, QRS duration is 106, and the QTc interval is 457. Laboratory shows severe decrease in hemoglobin at 5.9. There was previously approximate 7.3 upon discharge a couple weeks ago. She has Hemoccult positive stool. She is appears to have chronic renal disease. Laboratory evaluation which is essentially stable. BNP is elevated, troponin is negative. Chest x-ray shows evidence of congestive heart failure. Patient is agreeable to blood transfusion. Risks benefits are discussed. 2 units of blood is transfused. She also receives Lasix aspirin and Nitropaste. Old records are reviewed in detail. She did have an EGD as well as colonoscopy on last hospital stay. The EGD showed what night of this and gastritis. 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 It appears as though she likely did have additional GI bleeding. Case is discussed with our internal medicine [facility] physician and he requests the patient be transferred as we do not have gastroenterology coverage over the weekend or this evening. Patient may end up needing additional endoscopies. Patient is agreeable with transfer to [facility]. Case is discussed with Dr. Rai who is agreeable to transfer to [facility] emergency department. Approximately 30 minutes of critical care time is utilized and the treatment of the patient. Her oxygenation status has been stable in 2-3 L oxygenation of 96% on last recheck. - Lab Data Result diagrams: 06/20/21 14:00 06/20/21 14:00 Lab Results 06/20/21 06/20/21 06/20/21 Range/Units 14:00 14:00 14:00 WBC 5.5 (3.8-10.6) k/uL RBC 2.75 L (3.80-5.40) m/uL Hgb 5.7 L* D (11.4-16.0) gm/dL Hct 21.5 L (34.0-46.0) % MCV 78.1 L (80.0-100.0) fL MCH 20.7 L (25.0-35.0) pg MCHC 26.5 L (31.0-37.0) g/dL RDW 26.9 H (11.5-15.5) % Plt Count 286 (150-450) k/uL MPV 9.3 Neutrophils % (Manual) 68 % Lymphocytes % (Manual) 20 % Monocytes % (Manual) 13 % Neutrophils # (Manual) 3.74 (1.3-7.7) k/uL Lymphocytes # (Manual) 1.10 (1.0-4.8) k/uL Monocytes # (Manual) 0.72 (0-1.0) k/uL Nucleated RBCs 5 H (0-0) /100 WBC Manual Slide Review Performed Hypochromasia Marked Poikilocytosis Moderate Anisocytosis Marked Microcytosis Marked PT 23.1 H (9.0-12.0) sec INR 2.4 H (<1.2) APTT 38.0 H (22.0-30.0) sec Sodium 139 (137-145) mmol/L Potassium 5.0 (3.5-5.1) mmol/L Chloride 107 (98-107) mmol/L Carbon Dioxide 26 (22-30) mmol/L Anion Gap 6 mmol/L BUN 48 H (7-17) mg/dL Creatinine 2.76 H (0.52-1.04) mg/dL Est GFR (CKD-EPI)AfAm 21 (>60 ml/min/1.73 sqM) Est GFR (CKD-EPI)NonAf 18 (>60 ml/min/1.73 sqM) Glucose 129 H (74-99) mg/dL Plasma Lactic Acid Jim (0.7-2.0) mmol/L Calcium 8.7 (8.4-10.2) mg/dL Total Bilirubin 0.5 (0.2-1.3) mg/dL AST 20 (14-36) U/L ALT 18 (4-34) U/L Alkaline Phosphatase 86 (38-126) U/L Ammonia (<30) umol/L Troponin I (0.000-0.034) ng/mL NT-Pro-B Natriuret Pep pg/mL Total Protein 6.9 (6.3-8.2) g/dL Albumin 3.2 L (3.5-5.0) g/dL Urine Color Urine Appearance (Clear) Urine pH (5.0-8.0) Ur Specific [place] (1.001-1.035) Urine Protein (Negative) Urine Glucose (UA) (Negative) Urine Ketones (Negative) Urine Blood (Negative) Urine Nitrite (Negative) Urine Bilirubin (Negative) Urine Urobilinogen (<2.0) mg/dL Ur Leukocyte Esterase (Negative) Urine RBC (0-5) /hpf Urine WBC (0-5) /hpf Ur Squamous Epith Cells (0-4) /hpf Urine Bacteria (None) /hpf Hyaline Casts (0-2) /lpf Urine Mucus (None) /hpf Stool Occult Blood (Negative) Coronavirus (PCR) (Not Detectd) Blood Type Blood Type Recheck Bld Type Recheck Status Antibody Screen Crossmatch Spec Expiration Date 06/20/21 06/20/21 06/20/21 Range/Units 14:00 14:00 14:00 WBC (3.8-10.6) k/uL RBC (3.80-5.40) m/uL Hgb (11.4-16.0) gm/dL Hct (34.0-46.0) % MCV (80.0-100.0) fL MCH (25.0-35.0) pg MCHC (31.0-37.0) g/dL RDW (11.5-15.5) % Plt Count (150-450) k/uL MPV Neutrophils % (Manual) % Lymphocytes % (Manual) % Monocytes % (Manual) % Neutrophils # (Manual) (1.3-7.7) k/uL Lymphocytes # (Manual) (1.0-4.8) k/uL Monocytes # (Manual) (0-1.0) k/uL Nucleated RBCs (0-0) /100 WBC Manual Slide Review Hypochromasia Poikilocytosis Anisocytosis Microcytosis PT (9.0-12.0) sec INR (<1.2) APTT (22.0-30.0) sec Sodium (137-145) mmol/L Potassium (3.5-5.1) mmol/L Chloride (98-107) mmol/L Carbon Dioxide (22-30) mmol/L Anion Gap mmol/L BUN (7-17) mg/dL Creatinine (0.52-1.04) mg/dL Est GFR (CKD-EPI)AfAm (>60 ml/min/1.73 sqM) Est GFR (CKD-EPI)NonAf (>60 ml/min/1.73 sqM) Glucose (74-99) mg/dL Plasma Lactic Acid Jim 1.1 (0.7-2.0) mmol/L Calcium (8.4-10.2) mg/dL Total Bilirubin (0.2-1.3) mg/dL AST (14-36) U/L ALT (4-34) U/L Alkaline Phosphatase (38-126) U/L Ammonia 10 (<30) umol/L Troponin I 0.016 (0.000-0.034) ng/mL NT-Pro-B Natriuret Pep 7270 pg/mL Total Protein (6.3-8.2) g/dL Albumin (3.5-5.0) g/dL Urine Color Urine Appearance (Clear) Urine pH (5.0-8.0) Ur Specific [place] (1.001-1.035) Urine Protein (Negative) Urine Glucose (UA) (Negative) Urine Ketones (Negative) Urine Blood (Negative) Urine Nitrite (Negative) Urine Bilirubin (Negative) Urine Urobilinogen (<2.0) mg/dL Ur Leukocyte Esterase (Negative) Urine RBC (0-5) /hpf Urine WBC (0-5) /hpf Ur Squamous Epith Cells (0-4) /hpf Urine Bacteria (None) /hpf Hyaline Casts (0-2) /lpf Urine Mucus (None) /hpf Stool Occult Blood (Negative) Coronavirus (PCR) (Not Detectd) Blood Type Blood Type Recheck Bld Type Recheck Status Antibody Screen Crossmatch Spec Expiration Date 06/20/21 06/20/21 06/20/21 Range/Units 14:09 14:38 15:00 WBC (3.8-10.6) k/uL RBC (3.80-5.40) m/uL Hgb (11.4-16.0) gm/dL Hct (34.0-46.0) % MCV (80.0-100.0) fL MCH (25.0-35.0) pg MCHC (31.0-37.0) g/dL RDW (11.5-15.5) % Plt Count (150-450) k/uL MPV Neutrophils % (Manual) % Lymphocytes % (Manual) % Monocytes % (Manual) % Neutrophils # (Manual) (1.3-7.7) k/uL Lymphocytes # (Manual) (1.0-4.8) k/uL Monocytes # (Manual) (0-1.0) k/uL Nucleated RBCs (0-0) /100 WBC Manual Slide Review Hypochromasia Poikilocytosis Anisocytosis Microcytosis PT (9.0-12.0) sec INR (<1.2) APTT (22.0-30.0) sec Sodium (137-145) mmol/L Potassium (3.5-5.1) mmol/L Chloride (98-107) mmol/L Carbon Dioxide (22-30) mmol/L Anion Gap mmol/L BUN (7-17) mg/dL Creatinine (0.52-1.04) mg/dL Est GFR (CKD-EPI)AfAm (>60 ml/min/1.73 sqM) Est GFR (CKD-EPI)NonAf (>60 ml/min/1.73 sqM) Glucose (74-99) mg/dL Plasma Lactic Acid Jim (0.7-2.0) mmol/L Calcium (8.4-10.2) mg/dL Total Bilirubin (0.2-1.3) mg/dL AST (14-36) U/L ALT (4-34) U/L Alkaline Phosphatase (38-126) U/L Ammonia (<30) umol/L Troponin I (0.000-0.034) ng/mL NT-Pro-B Natriuret Pep pg/mL Total Protein (6.3-8.2) g/dL Albumin (3.5-5.0) g/dL Urine Color Yellow Urine Appearance Clear (Clear) Urine pH 5.0 (5.0-8.0) Ur Specific [place] 1.013 (1.001-1.035) Urine Protein 1+ H (Negative) Urine Glucose (UA) Negative (Negative) Urine Ketones Negative (Negative) Urine Blood Negative (Negative) Urine Nitrite Negative (Negative) Urine Bilirubin Negative (Negative) Urine Urobilinogen 2.0 (<2.0) mg/dL Ur Leukocyte Esterase Small H (Negative) Urine RBC 1 (0-5) /hpf Urine WBC 5 (0-5) /hpf Ur Squamous Epith Cells <1 (0-4) /hpf Urine Bacteria Rare H (None) /hpf Hyaline Casts 60 H (0-2) /lpf Urine Mucus Rare H (None) /hpf Stool Occult Blood (Negative) Coronavirus (PCR) Not Detected (Not Detectd) Blood Type O Positive Blood Type Recheck O Pos Bld Type Recheck Status No Antibody Screen NEGATIVE Crossmatch See Detail Spec Expiration Date 06/23/2021229906/20/21 Range/Units 15:57 WBC (3.8-10.6) k/uL RBC (3.80-5.40) m/uL Hgb (11.4-16.0) gm/dL Hct (34.0-46.0) % MCV (80.0-100.0) fL MCH (25.0-35.0) pg MCHC (31.0-37.0) g/dL RDW (11.5-15.5) % Plt Count (150-450) k/uL MPV Neutrophils % (Manual) % Lymphocytes % (Manual) % Monocytes % (Manual) % Neutrophils # (Manual) (1.3-7.7) k/uL Lymphocytes # (Manual) (1.0-4.8) k/uL Monocytes # (Manual) (0-1.0) k/uL Nucleated RBCs (0-0) /100 WBC Manual Slide Review Hypochromasia Poikilocytosis Anisocytosis Microcytosis PT (9.0-12.0) sec INR (<1.2) APTT (22.0-30.0) sec Sodium (137-145) mmol/L Potassium (3.5-5.1) mmol/L Chloride (98-107) mmol/L Carbon Dioxide (22-30) mmol/L Anion Gap mmol/L BUN (7-17) mg/dL Creatinine (0.52-1.04) mg/dL Est GFR (CKD-EPI)AfAm (>60 ml/min/1.73 sqM) Est GFR (CKD-EPI)NonAf (>60 ml/min/1.73 sqM) Glucose (74-99) mg/dL Plasma Lactic Acid Jim (0.7-2.0) mmol/L Calcium (8.4-10.2) mg/dL Total Bilirubin (0.2-1.3) mg/dL AST (14-36) U/L ALT (4-34) U/L Alkaline Phosphatase (38-126) U/L Ammonia (<30) umol/L Troponin I (0.000-0.034) ng/mL NT-Pro-B Natriuret Pep pg/mL Total Protein (6.3-8.2) g/dL Albumin (3.5-5.0) g/dL Urine Color Urine Appearance (Clear) Urine pH (5.0-8.0) Ur Specific [place] (1.001-1.035) Urine Protein (Negative) Urine Glucose (UA) (Negative) Urine Ketones (Negative) Urine Blood (Negative) Urine Nitrite (Negative) Urine Bilirubin (Negative) Urine Urobilinogen (<2.0) mg/dL Ur Leukocyte Esterase (Negative) Urine RBC (0-5) /hpf Urine WBC (0-5) /hpf Ur Squamous Epith Cells (0-4) /hpf Urine Bacteria (None) /hpf Hyaline Casts (0-2) /lpf Urine Mucus (None) /hpf Stool Occult Blood Positive H (Negative) Coronavirus (PCR) (Not Detectd) Blood Type Blood Type Recheck Bld Type Recheck Status Antibody Screen Crossmatch Spec Expiration Date Disposition Clinical Impression: Anemia, CHF (congestive heart failure), Morbid obesity, GI bleed, Acute respiratory failure, Chronic renal disease Disposition: OTHER INSTITUTION NOT DEFINED Condition: Critical Is patient prescribed a controlled substance at d/c from ED?: No Referrals: Geovanna Lei MD [Primary Care Provider] - 1-2 days Time of Disposition: 21:27 - Out of Hospital Transfer - Req. Specs Out of Hospital Transfer - Requested Specifics: Other Emergency Center ([facility] emergency Department)
== END 2021-06-20 20:00 | disposition other institution (70) ==
LOC: EC 13:46
DX: D64.9 Anemia, unspecified (principal); E11.22 Type 2 diabetes mellitus with diabetic chronic kidney disease; I50.9 Heart failure, unspecified; E66.01 Morbid (severe) obesity due to excess calories; K92.2 Gastrointestinal hemorrhage, unspecified; J96.00 Acute respiratory failure, unspecified whether with hypoxia or hypercapnia; N18.9 Chronic kidney disease, unspecified; Z68.44 Body mass index [BMI] 60.0-69.9, adult; Z79.899 Other long term (current) drug therapy; Z87.891 Personal history of nicotine dependence; Z20.822 Contact with and (suspected) exposure to COVID-19
CPT/HCPCS: 36415; 94640; 93005; 86900; 86901; 83880; 80053; 82140; 83605; 84484; 85025; 85610; 85730; 86850; 86920; 82272; 81001; 87040; 87635; 71045; 99285; 96374; 96375; P9016; J1940; J2930

== ENCOUNTER 2021-07-24 13:02 | Emergency (ER) | payer OTHER ==
[2021-07-24] MEDS ORDERED: SODIUM CHLORIDE 0.9% 500 ML 500 ML IV STA (13:23)
--- NOTE | 2021-07-24 13:32 | ED ---
General Adult HPI - General Chief complaint: Weakness Stated complaint: Weakness Time Seen by Provider: 07/24/21 13:15 Source: patient, EMS, RN notes reviewed, old records reviewed Mode of arrival: EMS Limitations: no limitations - History of Present Illness Initial comments: 60-year-old female, alert and oriented 3 however poor historian, presents to the emergency room via EMS with complaints of generalized weakness. She states that yesterday she had 3 episodes of dark tarry stools and lower abdominal pain. She states that her abdominal pain is resolved after having the stools. She has had no rectal bleeding today. She does have a history of GI bleeding and anemia. She states that she was transferred to [facility] last month but is unsure of the dates. She states that she is currently in a rehab facility. She does have a history of atrial fibrillation, anemia, GI bleed, Chronic kidney disease, atrial fibrillation, diabetes and lymphoma. She states that she does have an abdominal hernia with surgical history of an appendectomy. -: days(s) (2) Severity scale (1-10): 0 Associated Symptoms: weakness (Generalized), other (Hematochezia) - Related Data Home Medications Medication Instructions Recorded Confirmed Latanoprost/Pf [Latanoprost 0.005% 1 drop BOTH EYES HS 12/28/18 07/24/21 Eye Drop] Albuterol Sulfate [Proair Hfa] 2 puff INHALATION RT-Q6H PRN 05/28/21 07/24/21 Atorvastatin [Lipitor] 20 mg PO HS 05/28/21 07/24/21 Loratadine [Claritin] 10 mg PO DAILY 05/28/21 07/24/21 Amiodarone [Cordarone] 200 mg PO DAILY 06/20/21 07/24/21 Ammonium Lactate Lotion 1 applic TOPICAL DAILY PRN 06/20/21 07/24/21 [Lac-Hydrin 12% Lotion] Ipratropium/Albuterol Sulfate 2 puff INHALATION RT-QID 06/20/21 07/24/21 [Combivent Respimat Inhaler] Omeprazole 20 mg PO BID 06/20/21 07/24/21 carvediloL [Coreg] 3.125 mg PO BID 06/20/21 07/24/21 traZODone HCL 50 mg PO HS 06/20/21 07/24/21 Budesonide/Formoterol Fumarate 2 puff INHALATION RT-BID 07/24/21 07/24/21 [Symbicort 80-4.5 Mcg Inhaler] Dorzolamide HCl/Pf [Dorzolamide 2% 1 drop BOTH EYES BID 07/24/21 07/24/21 Eye Drop] Furosemide [Lasix] 20 mg PO DAILY 07/24/21 07/24/21 Metoprolol Tartrate [Lopressor] 25 mg PO BID 07/24/21 07/24/21 Rivaroxaban [Xarelto] 20 mg PO DAILY 07/24/21 07/24/21 Spironolactone 25 mg PO DAILY 07/24/21 07/24/21 Sucralfate [Carafate] 1 gm PO ACHS 07/24/21 07/24/21 Topiramate [Topamax] 25 mg PO BID 07/24/21 07/24/21 Torsemide [Demadex] 20 mg PO BID 07/24/21 07/24/21 clonazePAM [KlonoPIN] 0.5 mg PO DAILY PRN 07/24/21 07/24/21 lisinopriL [Prinivil] 20 mg PO DAILY 07/24/21 07/24/21 Allergies Allergy/AdvReac Type Severity Reaction Status Date / Time No Known Allergies Allergy Verified 07/24/21 13:14 Review of Systems ROS Statement: Those systems with pertinent positive or pertinent negative responses have been documented in the HPI. ROS Other: All systems not noted in ROS Statement are negative. Past Medical History Past Medical History: Atrial Fibrillation, Cancer, Diabetes Mellitus Additional Past Medical History / Comment(s): see Dr Nielsen [facility], 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 History of Any Multi-Drug Resistant Organisms: None Reported Past Surgical History: Appendectomy Additional Past Surgical History / Comment(s): mediport years ago, & then removed Past Anesthesia/Blood Transfusion Reactions: No Reported Reaction Past Psychological History: Anxiety Smoking Status: Former smoker Past Alcohol Use History: None Reported, Rare Past Drug Use History: Marijuana General Exam Limitations: no limitations General appearance: alert, in no apparent distress Head exam: Present: atraumatic, normocephalic, normal inspection Eye exam: Present: normal appearance, EOMI, other (arcus senilis bilaterally). Absent: conjunctival injection ENT exam: Present: normal exam, normal oropharynx, mucous membranes dry Neck exam: Present: normal inspection. Absent: tenderness, meningismus, lymphadenopathy Respiratory exam: Present: normal lung sounds bilaterally. Absent: respiratory distress, wheezes, rales, rhonchi, stridor, chest wall tenderness, accessory muscle use Cardiovascular Exam: Present: bradycardia. Absent: JVD GI/Abdominal exam: Present: soft, distended, other (Morbidly obese). Absent: tenderness, guarding, rebound, rigid Rectal exam: Present: normal rectal tone, heme (+) stool, black stool Extremities exam: Present: other (Bilateral lower extremity swelling ) Back exam: Present: normal inspection. Absent: tenderness, CVA tenderness (R), CVA tenderness (L), rash noted Neurological exam: Present: alert Psychiatric exam: Present: normal affect, normal mood Skin exam: Present: warm, dry, intact, pallor, other (Dry flaking skin and extremities). Absent: cyanosis, diaphoretic Course Vital Signs 07/24/21 07/24/21 07/24/21 13:10 14:24 16:13 Temperature 98.0 F Pulse Rate 50 L 99 Pulse Rate [ 52 L [place] [facility]] Respiratory 20 18 Rate Blood Pressure 125/57 120/62 O2 Sat by Pulse 100 99 Oximetry - Reevaluation(s) Reevaluation #1: 07/24/21 17:[address] Newell at [facility] who accepted the admission for GI bleed with a hemoglobin of 5.7. Requested patient be given Protonix prior to transfer. Time: 17:42 EKG Findings - EKG Results: EKG shows: bradycardia (Junctional rhythm with ventricular rate of 51, QRS 0.110, QTC 0.517) Medical Decision Making - Medical Decision Making This is a 60-year-old black female who presents to the emergency room with complaints of GI bleed and generalized weakness. Patient does have a history of GI bleed and anemia with chronic kidney disease, she also has history of atrial fibrillation, diabetes and lymphoma. Her hemoglobin in the emergency room was 5.7. She was 5.7 on June 20 when she was transferred to [place]. Today her Hemoglobin is 5.7 and hematocrit 20.0, occult blood positive. PTT is 20.8, INR 2.180, patient is on Xeralto. Potassium is 3.6. BUN is 59 with creatinine of 2.77. Pt does have history of chronic kidney disease. Magnesium is 2.8 and troponin is 0.023, EKG shows junctional rhythm with a rate of 51. Chest xr shows persistent cardiomegaly with pulmonary venous congestion no overt failure. She does need GI services which are not available to us at this time. She will be transferred back to [facility] and was accepted by Dr. Newell. Patient is agreeable to this plan of care. Case discussed with Dr. Solorzano. - Lab Data Result diagrams: 07/24/21 14:58 07/24/21 16:36 Lab Results 07/24/21 07/24/21 07/24/21 Range/Units 14:58 14:58 14:58 WBC 3.6 L (3.8-10.6) k/uL RBC 2.41 L (3.80-5.40) m/uL Hgb 5.7 L* (11.4-16.0) gm/dL Hct 20.0 L (34.0-46.0) % MCV 82.8 (80.0-100.0) fL MCH 23.7 L (25.0-35.0) pg MCHC 28.6 L (31.0-37.0) g/dL RDW 22.6 H (11.5-15.5) % Plt Count 375 (150-450) k/uL MPV 9.2 Neutrophils % (Manual) 69 % Band Neuts % (Manual) 1 % Lymphocytes % (Manual) 24 % Monocytes % (Manual) 5 % Eosinophils % (Manual) 1 % Neutrophils # (Manual) 2.50 (1.3-7.7) k/uL Lymphocytes # (Manual) 0.86 L (1.0-4.8) k/uL Monocytes # (Manual) 0.18 (0-1.0) k/uL Eosinophils # (Manual) 0.04 (0-0.7) k/uL Nucleated RBCs 1 H (0-0) /100 WBC Polychromasia Present Hypochromasia Marked Hypochromasia (manual) Present Poikilocytosis Marked Anisocytosis Moderate Microcytosis Moderate Stomatocytes Present PT 20.8 H (9.0-12.0) sec INR 2.1 H (<1.2) APTT 43.0 H (22.0-30.0) sec Sodium (137-145) mmol/L Potassium (3.5-5.1) mmol/L Chloride (98-107) mmol/L Carbon Dioxide (22-30) mmol/L Anion Gap mmol/L BUN (7-17) mg/dL Creatinine (0.52-1.04) mg/dL Est GFR (CKD-EPI)AfAm (>60 ml/min/1.73 sqM) Est GFR (CKD-EPI)NonAf (>60 ml/min/1.73 sqM) Glucose (74-99) mg/dL Plasma Lactic Acid Jim 1.3 (0.7-2.0) mmol/L Calcium (8.4-10.2) mg/dL Magnesium (1.6-2.3) mg/dL Total Bilirubin (0.2-1.3) mg/dL AST (14-36) U/L ALT (4-34) U/L Alkaline Phosphatase (38-126) U/L Troponin I (0.000-0.034) ng/mL Total Protein (6.3-8.2) g/dL Albumin (3.5-5.0) g/dL Stool Occult Blood (Negative) Blood Type Blood Type Recheck Bld Type Recheck Status Antibody Screen Crossmatch Spec Expiration Date 07/24/21 07/24/21 07/24/21 Range/Units 14:58 14:58 16:36 WBC (3.8-10.6) k/uL RBC (3.80-5.40) m/uL Hgb (11.4-16.0) gm/dL Hct (34.0-46.0) % MCV (80.0-100.0) fL MCH (25.0-35.0) pg MCHC (31.0-37.0) g/dL RDW (11.5-15.5) % Plt Count (150-450) k/uL MPV Neutrophils % (Manual) % Band Neuts % (Manual) % Lymphocytes % (Manual) % Monocytes % (Manual) % Eosinophils % (Manual) % Neutrophils # (Manual) (1.3-7.7) k/uL Lymphocytes # (Manual) (1.0-4.8) k/uL Monocytes # (Manual) (0-1.0) k/uL Eosinophils # (Manual) (0-0.7) k/uL Nucleated RBCs (0-0) /100 WBC Polychromasia Hypochromasia Hypochromasia (manual) Poikilocytosis Anisocytosis Microcytosis Stomatocytes PT (9.0-12.0) sec INR (<1.2) APTT (22.0-30.0) sec Sodium 136 L (137-145) mmol/L Potassium 3.6 (3.5-5.1) mmol/L Chloride 97 L (98-107) mmol/L Carbon Dioxide 32 H (22-30) mmol/L Anion Gap 7 mmol/L BUN 59 H (7-17) mg/dL Creatinine 2.77 H (0.52-1.04) mg/dL Est GFR (CKD-EPI)AfAm 21 (>60 ml/min/1.73 sqM) Est GFR (CKD-EPI)NonAf 18 (>60 ml/min/1.73 sqM) Glucose 85 (74-99) mg/dL Plasma Lactic Acid Jmi (0.7-2.0) mmol/L Calcium 8.9 (8.4-10.2) mg/dL Magnesium 2.8 H (1.6-2.3) mg/dL Total Bilirubin 0.8 (0.2-1.3) mg/dL AST 25 (14-36) U/L ALT 18 (4-34) U/L Alkaline Phosphatase 103 (38-126) U/L Troponin I 0.023 (0.000-0.034) ng/mL Total Protein 6.1 L (6.3-8.2) g/dL Albumin 3.1 L (3.5-5.0) g/dL Stool Occult Blood (Negative) Blood Type O Positive Blood Type Recheck O Pos Bld Type Recheck Status No Antibody Screen NEGATIVE Crossmatch See Detail Spec Expiration Date 07/27/2021 - 235707/24/21 Range/Units 16:36 WBC (3.8-10.6) k/uL RBC (3.80-5.40) m/uL Hgb (11.4-16.0) gm/dL Hct (34.0-46.0) % MCV (80.0-100.0) fL MCH (25.0-35.0) pg MCHC (31.0-37.0) g/dL RDW (11.5-15.5) % Plt Count (150-450) k/uL MPV Neutrophils % (Manual) % Band Neuts % (Manual) % Lymphocytes % (Manual) % Monocytes % (Manual) % Eosinophils % (Manual) % Neutrophils # (Manual) (1.3-7.7) k/uL Lymphocytes # (Manual) (1.0-4.8) k/uL Monocytes # (Manual) (0-1.0) k/uL Eosinophils # (Manual) (0-0.7) k/uL Nucleated RBCs (0-0) /100 WBC Polychromasia Hypochromasia Hypochromasia (manual) Poikilocytosis Anisocytosis Microcytosis Stomatocytes PT (9.0-12.0) sec INR (<1.2) APTT (22.0-30.0) sec Sodium (137-145) mmol/L Potassium (3.5-5.1) mmol/L Chloride (98-107) mmol/L Carbon Dioxide (22-30) mmol/L Anion Gap mmol/L BUN (7-17) mg/dL Creatinine (0.52-1.04) mg/dL Est GFR (CKD-EPI)AfAm (>60 ml/min/1.73 sqM) Est GFR (CKD-EPI)NonAf (>60 ml/min/1.73 sqM) Glucose (74-99) mg/dL Plasma Lactic Acid Jim (0.7-2.0) mmol/L Calcium (8.4-10.2) mg/dL Magnesium (1.6-2.3) mg/dL Total Bilirubin (0.2-1.3) mg/dL AST (14-36) U/L ALT (4-34) U/L Alkaline Phosphatase (38-126) U/L Troponin I (0.000-0.034) ng/mL Total Protein (6.3-8.2) g/dL Albumin (3.5-5.0) g/dL Stool Occult Blood Positive H (Negative) Blood Type Blood Type Recheck Bld Type Recheck Status Antibody Screen Crossmatch Spec Expiration Date Disposition Clinical Impression: GIB (gastrointestinal bleeding), Anemia, CKD (chronic kidney disease) Disposition: OTHER INSTITUTION NOT DEFINED Condition: Fair Referrals: Geovnana Lei MD [Primary Care Provider] - 1-2 days Decision Date: 07/24/21 Decision Time: 17:42 - Out of Hospital Transfer - Req. Specs Out of Hospital Transfer - Requested Specifics: Other Emergency Center ([place])
--- NOTE | 2021-07-24 14:42 | XR ---
EXAMINATION TYPE: XR chest 2V DATE OF EXAM: 07/24/2021 COMPARISON: 06/20/2021 HISTORY: Shortness of breath TECHNIQUE: Frontal and lateral views of the chest are obtained. FINDINGS: Scattered senescent parenchymal changes noted. Hyperinflation compatible with COPD. No evidence for infiltrate. No evidence for atelectasis. Persistent cardiomegaly with pulmonary venous congestion. No evidence for overt failure at this time. Mediastinal structures are stable and grossly unremarkable. No evidence for hilar prominence. Degenerative changes dorsal spine. IMPRESSION: 1. Persistent cardiomegaly with pulmonary venous congestion. No evidence for overt failure at this ti me.
[2021-07-24 15:43] LABS: Anisocytosis Moderate; Hypochromasia Marked; MCH 23.7 pg (25.0-35.0); MCHC 28.6 g/dL (31.0-37.0); MCV 82.8 fL (80.0-100.0); Mean Platelet Volume 9.2; Microcytosis Moderate; Platelet Count 375 k/uL (150-450); Poikilocytosis Marked; RBC 2.41 m/uL (3.80-5.40); RDW 22.6 % (11.5-15.5); WBC 3.6 k/uL (3.8-10.6)
[2021-07-24 15:51] LABS: INR 2.1 (<1.2); Prothrombin Time 20.8 sec (9.0-12.0)
[2021-07-24 15:56] LABS: HGB 5.7 gm/dL (11.4-16.0)
[2021-07-24 16:14] LABS: Band Neutrophils % 1 %; Eosinophils # (M) 0.04 k/uL (0-0.7); Hypochromasia (M) Present; Lymphocytes # (M) 0.86 k/uL (1.0-4.8); Monocytes # (M) 0.18 k/uL (0-1.0); Neutrophils % (M) 69 %; Nucleated Red Blood Cells 1 /100 WBC (0-0); Polychromasia Present; Stomatocytes Present; Total Cells Counted 100
[2021-07-24 16:59] LABS: Albumin 3.1 g/dL (3.5-5.0); Calcium 8.9 mg/dL (8.4-10.2); Magnesium 2.8 mg/dL (1.6-2.3); Potassium 3.6 mmol/L (3.5-5.1); Total Bilirubin 0.8 mg/dL (0.2-1.3); Total Protein 6.1 g/dL (6.3-8.2)
[2021-07-24 17:25] VITALS: TEMP 98
[2021-07-24 17:26] VITALS: BP 120/62; PULSE 99; RESP 18
[2021-07-24] MEDS ORDERED: PANTOPRAZOLE 40 MG/10 ML VIAL IVP STA (17:41)
== END 2021-07-24 19:10 | disposition other institution (70) ==
LOC: EC 13:02
DX: K92.2 Gastrointestinal hemorrhage, unspecified (principal); N18.9 Chronic kidney disease, unspecified; D63.1 Anemia in chronic kidney disease; I48.91 Unspecified atrial fibrillation; E11.22 Type 2 diabetes mellitus with diabetic chronic kidney disease; Z87.891 Personal history of nicotine dependence; Z79.899 Other long term (current) drug therapy; Z79.51 Long term (current) use of inhaled steroids
CPT/HCPCS: 93005; 86900; 86901; 80053; 83605; 83735; 84484; 85025; 85610; 85730; 86850; 86920; 82272; 71046; 99285; 96374; 96361; P9016